=== PATIENT | female | born 1950 | race Caucasian/White ===

== ENCOUNTER 2023-01-05 17:56 | Inpatient (IN) ==
[2023-01-05] MEDS ORDERED: ONDANSETRON INJ 2 MG/ML 2 ML VIAL IV STA (18:03)
[2023-01-05] MEDS ORDERED: SODIUM CHLORIDE 0.9% 1000ML 1,000 ML IV STA (18:03)
--- NOTE | 2023-01-05 18:03 | ED Triage Note ---
Date of Service January 05, 2023 History of Present Illness This patient was briefly evaluated while in triage. An abbreviated physical exam was performed. This patient is a 72-year-old Female who presents to the ED for evaluation of abdominal cramping. Pt. states cramping is entire way across abdomen. Symptoms are constant but occasionally get sharper. Pt. has had some nausea, but no vomiting. Physical Exam VITALS: Vitals are noted on the nurse's note and reviewed by myself. GENERAL: This is a 72 year old female, in no acute distress, nondiaphoretic, well-developed well-nourished. SKIN: No obvious rashes, edema, erythema HEAD: Normocephalic atraumatic. EYES: Conjunctivae without injection, sclerae without icterus. NECK: No JVD. LUNGS: No retractions or accessory muscle use. MUSCULOSKELETAL: Normal gait. NEURO: Patient was alert and oriented to person place and time. No focal neurological deficits. Initial orders for labs and / or imaging were placed and patient was placed in the waiting area until a bed is available. Please see further documentation for the full ED course.
[2023-01-05 19:04] LABS: Basophils # (auto) 0.05 K/uL (0-0.2); Basophils % (auto) 0.5 %; Eosinophils # (auto) 0.08 K/uL (0-0.50); Eosinophils % (auto) 0.8 %; Hematocrit (blood only) 41.4 % (37.0-47.0); Hemoglobin 13.7 g/dl (12.0-16.0); Immature Granulocytes # (auto) 0.03 K/uL (0.01-0.20); Immature Granulocytes % (auto) 0.3 %; Lymphocytes # (auto) 0.99 K/uL (1.2-3.4); Lymphocytes % (auto) 9.9 %; Mean Corpuscular Hemoglobin 31.2 pg (25.0-34.0); Mean Corpuscular Hgb Conc 33.1 g/dL (32.0-36.0); Mean Corpuscular Volume 94.3 fL (80.0-100.0); Mean Platelet Volume 9.4 fL (9.4-12.4); Neutrophils % (auto) 82.5 %; Platelet Count 176 K/uL (130-400); RDW Coefficient of Variation 12.9 % (11.5-14.5); RDW Standard Deviation 44.9 fL (36.4-46.3); Red Blood Count 4.39 M/uL (4.20-5.40); White Blood Count 9.95 K/ul (4.8-10.8)
[2023-01-05 19:10] LABS: Appearance Urine Cloudy (Clear); Bacteria Urine Automated Negative (Negative); Blood Urine Negative (Negative); Color Urine Dark Yellow; Epithelial Cell Urine Auto >30 /lpf (0-5); Glucose Urine UA Negative (Negative); Ketones Urine 1+ (Negative); Leukocyte Esterase Urine Trace (Negative); Nitrite Urine Negative (Negative); Protein Urine 1+ (Negative); Specific Gravity Urine 1.036 (1.000-1.030); Urobilinogen Urine Negative (Negative); pH Urine 5.5 (4.5-7.5)
[2023-01-05 19:12] LABS: Bilirubin Urine 1+ (Negative)
[2023-01-05 19:20] LABS: RBC Urine Automated 0-4 /hpf (0-4)
[2023-01-05 19:21] LABS: Albumin Globulin Ratio 1.4 (0.9-2); Albumin Level 4.7 gm/dl (3.4-5.0); BUN Creatinine Ratio 22.5 (10-20); Bilirubin,Total 0.6 mg/dl (0.2-1.0); Creatinine Clr Calc Pharmacy 35.1 ml/min; Est GFR (African American) 51.6 ml/min; Est GFR (Non-African American) 44.5 ml/min; Globulin 3.3 gm/dl (2.5-4.0); Potassium 4.3 mmol/L (3.5-5.1)
[2023-01-05] MEDS ORDERED: OPTIRAY 320 100ml IV ONE (20:05)
[2023-01-05] MEDS ORDERED: MoRPHine SULFATE 4 MG/ML 1 ML CARP\\VIAL IV STA (20:29)
--- NOTE | 2023-01-05 20:50 | CT Scan Report ---
Exam(s): CT ABDOMEN + PELVIS With Contrast IV Amt: 93 ml optiray 320 EXAM: CT Abdomen and Pelvis With Intravenous Contrast CLINICAL HISTORY: Reason for exam: Generalized abdominal pain. TECHNIQUE: Axial computed tomography images of the abdomen and pelvis with intravenous contrast. CTDI is 10.78 mGy and DLP is 501.16 mGy-cm. Automated exposure control was utilized for the study. A dose lowering technique was utilized adhering to the principles of ALARA. CONTRAST: Patient received 93 ml optiray 320 of IV contrast COMPARISON: No relevant prior studies available. FINDINGS: Lung bases: Unremarkable. No mass. No consolidation. ABDOMEN: Liver: Unremarkable. No mass. Gallbladder and bile ducts: Unremarkable. No calcified stones. No ductal dilation. Pancreas: Unremarkable. No mass. No ductal dilation. Spleen: Unremarkable. No splenomegaly. Adrenals: Unremarkable. No mass. Kidneys and ureters: Unremarkable. No solid mass. No hydronephrosis. Stomach and bowel: high-grade small bowel obstruction. Transition point is likely within the mid line of the pelvis. Diverticulosis without evidence of diverticulitis. PELVIS: Appendix: No findings to suggest acute appendicitis. Bladder: Unremarkable. No mass. Reproductive: Unremarkable as visualized. ABDOMEN and PELVIS: Intraperitoneal space: See above. Bones/joints: No acute fracture. No dislocation. Soft tissues: Unremarkable. Vasculature: Unremarkable. No abdominal aortic aneurysm. Lymph nodes: Unremarkable. No enlarged lymph nodes. IMPRESSION: High-grade small bowel obstruction Electronically signed by: Herman Esquivel MD 01/05/23 20:49 PM
[2023-01-06] MEDS ORDERED: CARBIDOPA/LEVODOPA 25/100MG TAB PO STA (00:16)
--- NOTE | 2023-01-06 00:46 | Emergency Department Note ---
History of Present Illness General Chief Complaint: Abdominal Pain Stated Complaint: ABD PAIN,COLD SWEATS Time Seen by Provider: 01/05/23 20:10 History of Present Illness Provider Complaint: abdominal pain Onset (ago): 1 day(s) Pain Consistency: constant Location: diffuse Severity: moderate Maximum Pain Intensity: 6 Current Pain Intensity: 6 Quality: + stabbing, + aching and + sharp Relieved By: + nothing Exacerbated By: + nothing Context: no foreign travel, no possible food poisoning, no sick contacts, no recent antibiotic use, no recent surgery/procedure, no recent injury or no history of similar episodes Associated Symptoms: + nausea; no vomiting, no diarrhea, no fever, no chills, no constipation, no dysuria, no hematemesis, no hematochezia, no melena, no hematuria, no syncope, no headache, no back pain, no chest pain and no numbness Home Medications Medication Instructions Recorded Confirmed Type carbidopa 25 mg-levodopa 100 mg 1.5 tab PO TID 01/05/23 01/05/23 History tablet lisinopril 5 mg tablet 5 mg PO DAILY 01/05/23 01/05/23 History memantine 5 mg tablet 5 mg PO BID 01/05/23 01/05/23 History multivitamin 1 tab PO DAILY 01/05/23 01/05/23 History Allergies Allergy/AdvReac Type Severity Reaction Status Date / Time No Known Allergies Allergy Unverified 01/05/23 20:17 Past Med/Surg History Medical History (Updated 01/06/23 @ 00:46 by Anurag Antunez MD) HTN (hypertension) Parkinson disease SBO (small bowel obstruction) Surgical History H/O hernia repair H/O tubal ligation Social History Smoking Status: Unknown if ever smoked Preferred Language: Chinese Feels Safe at Home: Yes Physical Exam Vital Signs: Vital Signs - 24 hr 01/05/23 18:00 01/05/23 19:56 01/05/23 20:38 Temperature 36.5 C Temperature Source Temporal Artery Sc an Pulse Rate 85 Pulse Rate [Right Finger] 61 73 Respiratory Rate 16 19 19 Blood Pressure 134/74 Blood Pressure [Ri ght Arm] 164/83 H 140/73 Blood Pressure Carol n 94 Blood Pressure Carol n [Right Arm] 110 95 Pulse Oximetry 97 95 97 Oxygen Delivery Me thod Room Air Sepsis Recent Feve r Within 48 Hours No Sepsis New/Unexpla ined Change in Men fran Status N/A Sepsis Action Take n by Nursing No Action Required 01/05/23 19:47 01/05/23 21:44 01/05/23 23:10 Temperature Temperature Source Pulse Rate 63 Pulse Rate [Right Finger] 65 82 Respiratory Rate 16 16 Blood Pressure Blood Pressure [Ri ght Arm] 148/80 H Blood Pressure Carol n Blood Pressure Carol n [Right Arm] 102 Pulse Oximetry 99 97 Oxygen Delivery Me thod Room Air Sepsis Recent Feve r Within 48 Hours Sepsis New/Unexpla ined Change in Men fran Status Sepsis Action Take n by Nursing 01/06/23 00:18 Temperature Temperature Source Pulse Rate Pulse Rate [Right Finger] 61 Respiratory Rate 16 Blood Pressure Blood Pressure [Ri ght Arm] 141/72 H Blood Pressure Carol n Blood Pressure Carol n [Right Arm] 95 Pulse Oximetry 97 Oxygen Delivery Me thod Sepsis Recent Feve r Within 48 Hours Sepsis New/Unexpla ined Change in Men fran Status Sepsis Action Take n by Nursing Physical Exam: Physical Exam GENERAL: She is oriented to person, place, and time. She appears well-developed and well-nourished. She does not appear distressed. HENT: Exam performed. -Head: Normocephalic and atraumatic. -Right Ear: External ear normal. No mastoid erythema -Left Ear: External ear normal. No mastoid erythema -Mouth/Throat: The oropharynx is clear and moist. No trismus in the jaw. No dental abscesses or uvula swelling. No oropharyngeal exudate or tonsillar abscesses. EYES: Conjunctivae and EOM are normal.Right eye exhibits no discharge. Left eye exhibits no discharge. No scleral icterus. NECK: Normal range of motion. Neck supple. No JVD present. No tracheal deviation and normal range of motion present. CV: Normal rate, regular rhythm, normal heart sounds and intact distal pulses. There is no peripheral edema. Palpable radial pulses bue. PULM/CHEST: Effort normal and breath sounds normal. No respiratory distress. No stridor. She has no wheezes. She has no rales. -Chest Wall: She exhibits no tenderness. ABD: The abdomen is soft. Bowel sounds are normal. She has no distension. No mass is present. There is diffuse tenderness to palpation of the abdomen. There is no rebound, no guarding. MUSC/SKEL: Normal range of motion. There is no peripheral edema, tenderness or deformity. NEURO: Motor and sensation grossly intact. SKIN: Skin is warm and dry. She is not diaphoretic. PSYCH: She has a normal mood and affect. Behavior is normal. Judgment and thought content normal. Course Course 2009: The patient was evaluated in room C2. A complete history and physical exam was performed Cardiac monitoring: An order was placed for continuous cardiac monitoring. The monitor shows a rate of 60 with sinus rhythm interpreted by dc 2200: Vital signs stable. Labs within normal limits. Imaging shows bowel obstruction. Patient not having any vomiting. Discussed case with on-call general surgery Dr. Teixeira who states admit to medicine and place him on routine consult. [facility] Dr[facility] Lynne Administered Medications Discontinued Medications Sodium Chloride (Nss 1000ml) 1,000 mls @ 999 mls/hr IV .Q1H1M STA Stop: 01/05/23 19:03 Last Infusion: 01/05/23 20:59 Dose: 0 mls/hr Documented By: Admin: 01/05/23 19:56 Dose: 999 mls/hr Documented By: DAVON Ioversol (Optiray 320 100ml) 93 ml IV ONCE ONE Stop: 01/05/23 20:06 Last Admin: 01/05/23 20:06 Dose: 93 ml Documented By: ALBIN Morphine Sulfate (Morphine Sulfate 4 Mg/Ml 1 Ml Carp\Vial) 4 mg IV NOW STA Stop: 01/05/23 20:30 Last Admin: 01/05/23 20:34 Dose: 4 mg Documented By: DAVON Ondansetron HCl (Ondansetron Inj 2 Mg/Ml 2 Ml Vial) 4 mg IV NOW STA Stop: 01/05/23 18:04 Last Admin: 01/05/23 19:56 Dose: 4 mg Documented By: DAVON Medical Decision Making Laboratory Data Attestation: I reviewed the patient's lab results. 01/05/23 18:48 01/05/23 18:48 Lab Results 01/05/23 01/05/23 01/05/23 Range/Units 18:48 18:48 18:57 WBC 9.95 (4.8-10.8) K/ul RBC 4.39 (4.20-5.40) M/uL Hgb 13.7 (12.0-16.0) g/dl Hct 41.4 (37.0-47.0) % MCV 94.3 (80.0-100.0) fL MCH 31.2 (25.0-34.0) pg MCHC 33.1 (32.0-36.0) g/dL RDW Std Deviation 44.9 (36.4-46.3) fL RDW Coeff of Brandee 12.9 (11.5-14.5) % Plt Count 176 (130-400) K/uL MPV 9.4 (9.4-12.4) fL Immature Gran % (Auto) 0.3 % Neut % (Auto) 82.5 % Lymph % (Auto) 9.9 % [place] % (Auto) 6.0 % Eos % (Auto) 0.8 % Baso % (Auto) 0.5 % Neut # (Auto) 8.20 H (1.40-6.50) K/uL Lymph # (Auto) 0.99 L (1.2-3.4) K/uL Alpine # (Auto) 0.60 H (0.11-0.59) K/uL Eos # (Auto) 0.08 (0-0.50) K/uL Baso # (Auto) 0.05 (0-0.2) K/uL Immature Gran # (Auto) 0.03 (0.01-0.20) K/uL Sodium 137 (136-145) mmol/L Potassium 4.3 (3.5-5.1) mmol/L Chloride 104 (98-107) mmol/L Carbon Dioxide 26 (21-32) mmol/L Anion Gap 7 (3-11) BUN 27 H (6-23) mg/dl Creatinine 1.20 (0.6-1.2) mg/dl Est Cr Clr Drug Dosing 35.1 ml/min Est GFR ( Amer) 51.6 ml/min Est GFR (Non-Af Amer) 44.5 ml/min BUN/Creatinine Ratio 22.5 H (10-20) Glucose 124 H (70-99(Fasting)) mg/dl Calcium 10.0 (8.6-10.3) mg/dl Total Bilirubin 0.6 (0.2-1.0) mg/dl AST 19 (13-39) U/L ALT 3 L (7-52) U/L Alkaline Phosphatase 82 (34-104) U/L Total Protein 8.0 (6.0-8.3) gm/dl Albumin 4.7 (3.4-5.0) gm/dl Globulin 3.3 (2.5-4.0) gm/dl Albumin/Globulin Ratio 1.4 (0.9-2) Lipase 17 (11-82) U/L Urine Color Dark Yellow Urine Appearance Cloudy A (Clear) Urine pH 5.5 (4.5-7.5) Ur Specific [place] 1.036 H (1.000-1.030) Urine Protein 1+ H (Negative) Urine Glucose (UA) Negative (Negative) Urine Ketones 1+ H (Negative) Urine Blood Negative (Negative) Urine Nitrite Negative (Negative) Urine Bilirubin 1+ H (Negative) Urine Urobilinogen Negative (Negative) Ur Leukocyte Esterase Trace H (Negative) Urine WBC (Auto) 5-10 H (0-5) /hpf Urine RBC (Auto) 0-4 (0-4) /hpf U Hyaline Cast (Auto) 1-5 (0-5) /lpf U Epithel Cells (Auto) >30 H (0-5) /lpf Urine Bacteria (Auto) Negative (Negative) Ur Renal Epithelial Cell Not Reportable Urine Yeast Not Reportable Imaging Data Radiologist's Impression: Abdomen/Pelvis CT 01/05/23 18:03 Exam(s): CT ABDOMEN + PELVIS With Contrast IV Amt: 93 ml optiray 320 EXAM: CT Abdomen and Pelvis With Intravenous Contrast CLINICAL HISTORY: Reason for exam: Generalized abdominal pain. TECHNIQUE: Axial computed tomography images of the abdomen and pelvis with intravenous contrast. CTDI is 10.78 mGy and DLP is 501.16 mGy-cm. Automated exposure control was utilized for the study. A dose lowering technique was utilized adhering to the principles of ALARA. CONTRAST: Patient received 93 ml optiray 320 of IV contrast COMPARISON: No relevant prior studies available. FINDINGS: Lung bases: Unremarkable. No mass. No consolidation. ABDOMEN: Liver: Unremarkable. No mass. Gallbladder and bile ducts: Unremarkable. No calcified stones. No ductal dilation. Pancreas: Unremarkable. No mass. No ductal dilation. Spleen: Unremarkable. No splenomegaly. Adrenals: Unremarkable. No mass. Kidneys and ureters: Unremarkable. No solid mass. No hydronephrosis. Stomach and bowel: high-grade small bowel obstruction. Transition point is likely within the mid line of the pelvis. Diverticulosis without evidence of diverticulitis. PELVIS: Appendix: No findings to suggest acute appendicitis. Bladder: Unremarkable. No mass. Reproductive: Unremarkable as visualized. ABDOMEN and PELVIS: Intraperitoneal space: See above. Bones/joints: No acute fracture. No dislocation. Soft tissues: Unremarkable. Vasculature: Unremarkable. No abdominal aortic aneurysm. Lymph nodes: Unremarkable. No enlarged lymph nodes. IMPRESSION: High-grade small bowel obstruction Electronically signed by: Herman Esquivel MD 01/05/23 20:49 PM [facility] Narrative 2009: The patient was evaluated in room C2. A complete history and physical exam was performed Cardiac monitoring: An order was placed for continuous cardiac monitoring. The monitor shows a rate of 60 with sinus rhythm interpreted by dc 2200: Vital signs stable. Labs within normal limits. Imaging shows bowel obstruction. Patient not having any vomiting. Discussed case with on-call general surgery Dr. Teixeira who states admit to medicine and place him on routine consult. Patient be admitted to [facility] team Dr. Lynne Impression & Plan Small bowel obstruction Discharge Plan Visit Data Chief Complaint: Abdominal Pain Stated Complaint: ABD PAIN,COLD SWEATS ED Provider: Anurag Antunez Discharge Problem: Small bowel obstruction Patient Disposition: Admitted As Inpatient Forms Stand Alone Forms: [facility] Prescriptions Prescriptions: No Action multivitamin Tablet 1 tab PO DAILY lisinopril 5 mg tablet 5 mg PO DAILY carbidopa-levodopa 25-100 mg tablet 1.5 tab PO TID memantine 5 mg tablet 5 mg PO BID Referrals Referrals: Aron Chavez MD [Primary Care Provider] -
--- NOTE | 2023-01-06 01:46 | History & Physical Report ---
Date of Service January 06, 2023 Assessment & Plan (1) Small bowel obstruction: Plan: 72-year-old female past medical significant for hypertension, Parkinson disease history of bowel obstruction in the past presents with abdominal pain and found to have a high-grade small bowel obstruction. Small bowel obstruction High-grade History of small bowel obstruction in the past as per patient and daughter We will keep her n.p.o. IV fluids, IV antiemetics as needed and IV pain medications as needed Monitor on the medical floor Surgical consult Symptoms gets worse we will place an NG tube Hypertension Continue home lisinopril Parkinson's disease Continue home carbidopa levodopa DVT prophylaxis Lovenox Disposition medical floor Full code (2) HTN (hypertension): (3) Parkinson disease: Admission and Anticipated Discharge Date Admission Date: January 06, 2023 History of Present Illness Chief Complaint: Abdominal pain Primary Care Provider: Aron Chavez MD 72-year-old female past medical significant for hypertension, Parkinson disease history of bowel obstruction in the past presents with abdominal pain starting in the morning. Also with some nausea but no vomiting. Had a bowel movement 1 day earlier. She is passing some gas. Currently with the pain medication pain is improved. Denies any chest pain or shortness of breath. No cough. No fevers. No headache. No earache or runny nose or sore throat. Currently rest ing comfortably and hemodynamically stable. Past medical history as mentioned above Past surgical history esophageal hernia surgery, tubal ligation Social history . Passive smoking. No alcohol use. Family history mother had breast cancer, father had kidney cancer and bone cancer and [place] Allergies Allergy/AdvReac Type Severity Reaction Status Date / Time No Known Allergies Allergy Unverified 01/05/23 20:17 Home Medications Medication Instructions Recorded Confirmed Type carbidopa 25 mg-levodopa 100 mg 1.5 tab PO TID 01/05/23 01/05/23 History tablet lisinopril 5 mg tablet 5 mg PO DAILY 01/05/23 01/05/23 History memantine 5 mg tablet 5 mg PO BID 01/05/23 01/05/23 History multivitamin 1 tab PO DAILY 01/05/23 01/05/23 History Past Med/Surg History Medical History HTN (hypertension) Parkinson disease SBO (small bowel obstruction) Surgical History H/O hernia repair H/O tubal ligation Social History Smoking Status: Never smoker Hx Alcohol Use: No Hx Substance Use: No Preferred Language: Latvian Communication Ability: Effective Lunchroom Monitor Required: No Beliefs That Will Affect Care: None Current Living Situation: Spouse Other Information That Helps Us Care for You: No Feels Safe at Home: Yes Safety Concerns: Feels Safe At This Time Assistive Devices: None Review of Systems Review of Systems: All systems reviewed & are unremarkable except as noted in Subjective Physical Exam Physical Exam: General- Not in distress Head- atraumatic Eyes- PERRLA. ENT- oropharynx clear Neck- supple, no JVD, Lungs- clear to auscultation and percussion Heart- regular rate rhythm; no murmur, no gallop Abdomen- sluggish bowel sounds, soft, mild diffuse tender, no distension Extremities- no pretibial edema, no erythema Neuro- alert, oriented x 3; PERRL, EOMI; no facial palsy; no dysarthria;moves extremities. Skin- warm & dry Results & Data Results & Data Vital Signs (Past 12 Hours) Vital Signs Temp Pulse Pulse Resp BP BP Pulse Ox 01/06/23 01:18 61 16 165/80 H 98 01/06/23 00:18 61 16 141/72 H 97 01/05/23 23:10 82 16 148/80 H 97 01/05/23 21:44 65 16 99 01/05/23 19:47 63 01/05/23 20:38 73 19 140/73 97 01/05/23 19:56 61 19 164/83 H 95 01/05/23 18:00 36.5 C 85 16 134/74 97 O2 Del Method 01/06/23 01:18 Room Air 01/06/23 00:18 01/05/23 23:10 Room Air 01/05/23 21:44 01/05/23 19:47 01/05/23 20:38 01/05/23 19:56 01/05/23 18:00 Room Air Diagnostic Findings Laboratory Results WBC 9.95 K/ul (4.8-10.8) 01/05/23 18:48 RBC 4.39 M/uL (4.20-5.40) 01/05/23 18:48 Hgb 13.7 g/dl (12.0-16.0) 01/05/23 18:48 Hct 41.4 % (37.0-47.0) 01/05/23 18:48 MCV 94.3 fL (80.0-100.0) 01/05/23 18:48 MCH 31.2 pg (25.0-34.0) 01/05/23 18:48 MCHC 33.1 g/dL (32.0-36.0) 01/05/23 18:48 RDW Std Deviation 44.9 fL (36.4-46.3) 01/05/23 18:48 RDW Coeff of Brandee 12.9 % (11.5-14.5) 01/05/23 18:48 Plt Count 176 K/uL (130-400) 01/05/23 18:48 MPV 9.4 fL (9.4-12.4) 01/05/23 18:48 Immature Gran % (Auto) 0.3 % 01/05/23 18:48 Neut % (Auto) 82.5 % 01/05/23 18:48 Lymph % (Auto) 9.9 % 01/05/23 18:48 Sunflower % (Auto) 6.0 % 01/05/23 18:48 Eos % (Auto) 0.8 % 01/05/23 18:48 Baso % (Auto) 0.5 % 01/05/23 18:48 Neut # (Auto) 8.20 K/uL (1.40-6.50) H 01/05/23 18:48 Lymph # (Auto) 0.99 K/uL (1.2-3.4) L 01/05/23 18:48 Sunflower # (Auto) 0.60 K/uL (0.11-0.59) H 01/05/23 18:48 Eos # (Auto) 0.08 K/uL (0-0.50) 01/05/23 18:48 Baso # (Auto) 0.05 K/uL (0-0.2) 01/05/23 18:48 Immature Gran # (Auto) 0.03 K/uL (0.01-0.20) 01/05/23 18:48 Sodium 137 mmol/L (136-145) 01/05/23 18:48 Potassium 4.3 mmol/L (3.5-5.1) 01/05/23 18:48 Chloride 104 mmol/L (98-107) 01/05/23 18:48 Carbon Dioxide 26 mmol/L (21-32) 01/05/23 18:48 Anion Gap 7 (3-11) 01/05/23 18:48 BUN 27 mg/dl (6-23) H 01/05/23 18:48 Creatinine 1.20 mg/dl (0.6-1.2) 01/05/23 18:48 Est Cr Clr Drug Dosing 35.1 ml/min 01/05/23 18:48 Est GFR ( Amer) 51.6 ml/min 01/05/23 18:48 Est GFR (Non-Af Amer) 44.5 ml/min 01/05/23 18:48 BUN/Creatinine Ratio 22.5 (10-20) H 01/05/23 18:48 Glucose 124 mg/dl (70-99(Fasting)) H 01/05/23 18:48 Calcium 10.0 mg/dl (8.6-10.3) 01/05/23 18:48 Total Bilirubin 0.6 mg/dl (0.2-1.0) 01/05/23 18:48 AST 19 U/L (13-39) 01/05/23 18:48 ALT 3 U/L (7-52) L 01/05/23 18:48 Alkaline Phosphatase 82 U/L (34-104) 01/05/23 18:48 Total Protein 8.0 gm/dl (6.0-8.3) 01/05/23 18:48 Albumin 4.7 gm/dl (3.4-5.0) 01/05/23 18:48 Globulin 3.3 gm/dl (2.5-4.0) 01/05/23 18:48 Albumin/Globulin Ratio 1.4 (0.9-2) 01/05/23 18:48 Lipase 17 U/L (11-82) 01/05/23 18:48 Urine Color Dark Yellow 01/05/23 18:57 Urine Appearance Cloudy (Clear) A 01/05/23 18:57 Urine pH 5.5 (4.5-7.5) 01/05/23 18:57 Ur Specific [place] 1.036 (1.000-1.030) H 01/05/23 18:57 Urine Protein 1+ (Negative) H 01/05/23 18:57 Urine Glucose (UA) Negative (Negative) 01/05/23 18:57 Urine Ketones 1+ (Negative) H 01/05/23 18:57 Urine Blood Negative (Negative) 01/05/23 18:57 Urine Nitrite Negative (Negative) 01/05/23 18:57 Urine Bilirubin 1+ (Negative) H 01/05/23 18:57 Urine Urobilinogen Negative (Negative) 01/05/23 18:57 Ur Leukocyte Esterase Trace (Negative) H 01/05/23 18:57 Urine WBC (Auto) 5-10 /hpf (0-5) H 01/05/23 18:57 Urine RBC (Auto) 0-4 /hpf (0-4) 01/05/23 18:57 U Hyaline Cast (Auto) 1-5 /lpf (0-5) 01/05/23 18:57 U Epithel Cells (Auto) >30 /lpf (0-5) H 01/05/23 18:57 Urine Bacteria (Auto) Negative (Negative) 01/05/23 18:57 Ur Renal Epithelial Cell Not Reportable 01/05/23 18:57 Urine Yeast Not Reportable 01/05/23 18:57 Impressions Abdomen/Pelvis CT 01/05/23 18:03 Exam(s): CT ABDOMEN + PELVIS With Contrast IV Amt: 93 ml optiray 320 EXAM: CT Abdomen and Pelvis With Intravenous Contrast CLINICAL HISTORY: Reason for exam: Generalized abdominal pain. TECHNIQUE: Axial computed tomography images of the abdomen and pelvis with intravenous contrast. CTDI is 10.78 mGy and DLP is 501.16 mGy-cm. Automated exposure control was utilized for the study. A dose lowering technique was utilized adhering to the principles of ALARA. CONTRAST: Patient received 93 ml optiray 320 of IV contrast COMPARISON: No relevant prior studies available. FINDINGS: Lung bases: Unremarkable. No mass. No consolidation. ABDOMEN: Liver: Unremarkable. No mass. Gallbladder and bile ducts: Unremarkable. No calcified stones. No ductal dilation. Pancreas: Unremarkable. No mass. No ductal dilation. Spleen: Unremarkable. No splenomegaly. Adrenals: Unremarkable. No mass. Kidneys and ureters: Unremarkable. No solid mass. No hydronephrosis. Stomach and bowel: high-grade small bowel obstruction. Transition point is likely within the mid line of the pelvis. Diverticulosis without evidence of diverticulitis. PELVIS: Appendix: No findings to suggest acute appendicitis. Bladder: Unremarkable. No mass. Reproductive: Unremarkable as visualized. ABDOMEN and PELVIS: Intraperitoneal space: See above. Bones/joints: No acute fracture. No dislocation. Soft tissues: Unremarkable. Vasculature: Unremarkable. No abdominal aortic aneurysm. Lymph nodes: Unremarkable. No enlarged lymph nodes. IMPRESSION: High-grade small bowel obstruction Electronically signed by: Herman Esquivel MD 01/05/23 20:49 PM Code Status & VTE Plan VTE Prophylaxis Plan VTE Prophylaxis will be ordered: Yes
[2023-01-06] MEDS: D5W AND NSS 1,000 ML IV SCH ×3 (01:56→17:06)
[2023-01-06 08:07] LABS: Basophils # (auto) 0.03 K/uL (0-0.2); Basophils % (auto) 0.3 %; Eosinophils # (auto) 0.02 K/uL (0-0.50); Eosinophils % (auto) 0.2 %; Hematocrit (blood only) 39.6 % (37.0-47.0); Hemoglobin 13.1 g/dl (12.0-16.0); Immature Granulocytes # (auto) 0.04 K/uL (0.01-0.20); Immature Granulocytes % (auto) 0.4 %; Lymphocytes % (auto) 5.3 %; Mean Corpuscular Hemoglobin 31.3 pg (25.0-34.0); Mean Corpuscular Hgb Conc 33.1 g/dL (32.0-36.0); Mean Corpuscular Volume 94.5 fL (80.0-100.0); Mean Platelet Volume 9.6 fL (9.4-12.4); Monocytes # (auto) 0.68 K/uL (0.11-0.59); Neutrophils % (auto) 87.8 %; Platelet Count 155 K/uL (130-400); RDW Coefficient of Variation 13.1 % (11.5-14.5); RDW Standard Deviation 44.7 fL (36.4-46.3); Red Blood Count 4.19 M/uL (4.20-5.40); White Blood Count 11.37 K/ul (4.8-10.8)
[2023-01-06] MEDS: ENOXAPARIN INJ 40 MG/0.4 ML SYR SQ SCH (08:11)
[2023-01-06] MEDS: lisinopril 5 MG TAB PO SCH (08:12)
[2023-01-06] MEDS: MULTIVITAMIN TAB PO SCH (08:12)
[2023-01-06] MEDS: MEMANTINE HCL 5 MG TAB PO SCH ×2 (08:12→20:09)
[2023-01-06] MEDS: CARBIDOPA/LEVODOPA 25/100MG TAB PO SCH ×3 (08:13→20:09)
[2023-01-06 08:15] LABS: BUN Creatinine Ratio 20.6 (10-20); Calcium 8.9 mg/dl (8.6-10.3); Creatinine Clr Calc Pharmacy 43.6 ml/min; Est GFR (African American) 66.7 ml/min; Est GFR (Non-African American) 57.5 ml/min; Magnesium 1.9 mg/dl (1.7-2.4); Potassium 4.1 mmol/L (3.5-5.1)
[2023-01-06] MEDS: ONDANSETRON INJ 2 MG/ML 2 ML VIAL IV PRN ×3 (08:16→21:51)
[2023-01-06] MEDS: HYDROmorphone INJ 0.5 MG/0.5 ML SYR IV PRN (08:17)
--- NOTE | 2023-01-06 09:12 | Surgery Consultation ---
Date of Consultation January 06, 2023 Assessment & Plan (1) Small bowel obstruction: 72 year-old female with history of esophageal hernia repair and tubal ligation with prior SBO treated conservatively 3-4 years ago presented to emergency department with increasing abdominal pain and nausea that started yesterday morning. Passing flatus. Mild leukocytosis this am. Afebrile and hemodynamically stable. CT scan with high grade SBO with transition in the midline of pelvis. Abdomen is soft, nondistended, mildly tender in mid lower abdomen. Plan: Continue conservative management : NPO for bowel rest, IV fluids, Pain management and antiemetics as needed encouraged OOB to chair and ambulate Continue medical management will follow along Discussed with Dr. Quinn who has seen patient, agrees with above History of Present Illness Reason for Consultation: High grade SBO Requesting Physician: Dr. Antunez Attending Physician: Edwin Carpenter MD History of Present Illness Lula is a 72 year-old female with history of Parkinson disease, hypertension, and prior SBO presented to emergency department with increasing mid abdominal pain with associated nausea that started yesterday morning. States she has nausea but no vomiting. Passing some gas. Last bowel movement was two days ago. States she has a SBO about 3-4 years ago which was treated conservatively. Has history of tubal ligation and esophageal hernia repair done in [place]. Currently she states she is still having some pain and nausea but not worsening. Is passing a little more gas than last evening but no bowel movement. ER work-up included labs which showed no leukocytosis. CT scan of abdomen and pelvis with IV contrast showing high grade SBO with transition point in the low pelvis. Allergies Allergy/AdvReac Type Severity Reaction Status Date / Time No Known Allergies Allergy Unverified 01/05/23 20:17 Home Medications Medication Instructions Recorded Confirmed Type carbidopa 25 mg-levodopa 100 mg 1.5 tab PO TID 01/05/23 01/05/23 History tablet lisinopril 5 mg tablet 5 mg PO DAILY 01/05/23 01/05/23 History memantine 5 mg tablet 5 mg PO BID 01/05/23 01/05/23 History multivitamin 1 tab PO DAILY 01/05/23 01/05/23 History Patient History Medical History HTN (hypertension) Parkinson disease SBO (small bowel obstruction) Surgical History H/O hernia repair H/O tubal ligation Social History Smoking Status: Never smoker Hx Alcohol Use: No Hx Substance Use: No Preferred Language: [place] Communication Ability: Effective 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: No Beliefs That Will Affect Care: None Current Living Situation: Spouse Other Information That Helps Us Care for You: No Feels Safe at Home: Yes Safety Concerns: Feels Safe At This Time Assistive Devices: Walker Review of Systems Review of Systems: All systems reviewed & are unremarkable except as noted in HPI & below Physical Exam Constitutional: WD/WN, vitals as above cooperative and comfortable; no acute distress, not ill appearing and not diaphoretic Respiratory: normal respiratory effort; no respiratory distress Gastrointestinal (Abdomen): Inspection/Auscultation: abdomen normal to inspection, + abdominal surgical scar and + hypoactive bowel sounds; abdomen not distended and + abnormal bowel sounds Percussion/Palpation: + abdomen tender (mild tenderness in the mid lower abdomen) and abdomen soft; no guarding, abdomen not rigid and abdomen not firm Skin: no rashes, warm and dry Psychiatric: Orientation: alert and oriented x 3 Results & Data Vital Signs (Past 12 Hours) Vital Signs Temp Pulse Pulse Resp BP BP Pulse Ox 01/06/23 07:14 36.6 C 65 16 123/76 96 01/06/23 01:25 36.9 C 66 20 165/85 H 98 01/06/23 01:18 61 16 165/80 H 98 01/06/23 00:18 61 16 141/72 H 97 01/05/23 23:10 82 16 148/80 H 97 01/05/23 21:44 65 16 99 O2 Del Method 01/06/23 07:14 Room Air 01/06/23 01:25 Room Air 01/06/23 01:18 Room Air 01/06/23 00:18 01/05/23 23:10 Room Air 01/05/23 21:44 Laboratory Results 01/06/23 01/06/23 01/05/23 Range/Units 07:25 07:25 18:57 WBC 11.37 H (4.8-10.8) K/ul RBC 4.19 L (4.20-5.40) M/uL Hgb 13.1 (12.0-16.0) g/dl Hct 39.6 (37.0-47.0) % MCV 94.5 (80.0-100.0) fL MCH 31.3 (25.0-34.0) pg MCHC 33.1 (32.0-36.0) g/dL RDW Std Deviation 44.7 (36.4-46.3) fL RDW Coeff of Brandee 13.1 (11.5-14.5) % Plt Count 155 (130-400) K/uL MPV 9.6 (9.4-12.4) fL Immature Gran % (Auto) 0.4 % Neut % (Auto) 87.8 % Lymph % (Auto) 5.3 % [place] % (Auto) 6.0 % Eos % (Auto) 0.2 % Baso % (Auto) 0.3 % Neut # (Auto) 10.00 H (1.40-6.50) K/uL Lymph # (Auto) 0.60 L (1.2-3.4) K/uL [place]ick # (Auto) 0.68 H (0.11-0.59) K/uL Eos # (Auto) 0.02 (0-0.50) K/uL Baso # (Auto) 0.03 (0-0.2) K/uL Immature Gran # (Auto) 0.04 (0.01-0.20) K/uL Sodium 136 (136-145) mmol/L Potassium 4.1 (3.5-5.1) mmol/L Chloride 107 (98-107) mmol/L Carbon Dioxide 24 (21-32) mmol/L Anion Gap 5 (3-11) BUN 20 (6-23) mg/dl Creatinine 0.97 (0.6-1.2) mg/dl Est Cr Clr Drug Dosing 43.6 ml/min Est GFR ( Amer) 66.7 ml/min Est GFR (Non-Af Amer) 57.5 ml/min BUN/Creatinine Ratio 20.6 H (10-20) Glucose 192 H (70-99(Fasting)) mg/dl Calcium 8.9 (8.6-10.3) mg/dl Magnesium 1.9 (1.7-2.4) mg/dl Total Bilirubin (0.2-1.0) mg/dl AST (13-39) U/L ALT (7-52) U/L Alkaline Phosphatase (34-104) U/L Total Protein (6.0-8.3) gm/dl Albumin (3.4-5.0) gm/dl Globulin (2.5-4.0) gm/dl Albumin/Globulin Ratio (0.9-2) Lipase (11-82) U/L Urine Color Dark Yellow Urine Appearance Cloudy A (Clear) Urine pH 5.5 (4.5-7.5) Ur Specific [place] 1.036 H (1.000-1.030) Urine Protein 1+ H (Negative) Urine Glucose (UA) Negative (Negative) Urine Ketones 1+ H (Negative) Urine Blood Negative (Negative) Urine Nitrite Negative (Negative) Urine Bilirubin 1+ H (Negative) Urine Urobilinogen Negative (Negative) Ur Leukocyte Esterase Trace H (Negative) Urine WBC (Auto) 5-10 H (0-5) /hpf Urine RBC (Auto) 0-4 (0-4) /hpf U Hyaline Cast (Auto) 1-5 (0-5) /lpf U Epithel Cells (Auto) >30 H (0-5) /lpf Urine Bacteria (Auto) Negative (Negative) Ur Renal Epithelial Cell Not Reportable Urine Yeast Not Reportable 01/05/23 01/05/23 Range/Units 18:48 18:48 WBC 9.95 (4.8-10.8) K/ul RBC 4.39 (4.20-5.40) M/uL Hgb 13.7 (12.0-16.0) g/dl Hct 41.4 (37.0-47.0) % MCV 94.3 (80.0-100.0) fL MCH 31.2 (25.0-34.0) pg MCHC 33.1 (32.0-36.0) g/dL RDW Std Deviation 44.9 (36.4-46.3) fL RDW Coeff of Brandee 12.9 (11.5-14.5) % Plt Count 176 (130-400) K/uL MPV 9.4 (9.4-12.4) fL Immature Gran % (Auto) 0.3 % Neut % (Auto) 82.5 % Lymph % (Auto) 9.9 % M[place]ick % (Auto) 6.0 % Eos % (Auto) 0.8 % Baso % (Auto) 0.5 % Neut # (Auto) 8.20 H (1.40-6.50) K/uL Lymph # (Auto) 0.99 L (1.2-3.4) K/uL [place]ick # (Auto) 0.60 H (0.11-0.59) K/uL Eos # (Auto) 0.08 (0-0.50) K/uL Baso # (Auto) 0.05 (0-0.2) K/uL Immature Gran # (Auto) 0.03 (0.01-0.20) K/uL Sodium 137 (136-145) mmol/L Potassium 4.3 (3.5-5.1) mmol/L Chloride 104 (98-107) mmol/L Carbon Dioxide 26 (21-32) mmol/L Anion Gap 7 (3-11) BUN 27 H (6-23) mg/dl Creatinine 1.20 (0.6-1.2) mg/dl Est Cr Clr Drug Dosing 35.1 ml/min Est GFR ( Amer) 51.6 ml/min Est GFR (Non-Af Amer) 44.5 ml/min BUN/Creatinine Ratio 22.5 H (10-20) Glucose 124 H (70-99(Fasting)) mg/dl Calcium 10.0 (8.6-10.3) mg/dl Magnesium (1.7-2.4) mg/dl Total Bilirubin 0.6 (0.2-1.0) mg/dl AST 19 (13-39) U/L ALT 3 L (7-52) U/L Alkaline Phosphatase 82 (34-104) U/L Total Protein 8.0 (6.0-8.3) gm/dl Albumin 4.7 (3.4-5.0) gm/dl Globulin 3.3 (2.5-4.0) gm/dl Albumin/Globulin Ratio 1.4 (0.9-2) Lipase 17 (11-82) U/L Urine Color Urine Appearance (Clear) Urine pH (4.5-7.5) Ur Specific [place] (1.000-1.030) Urine Protein (Negative) Urine Glucose (UA) (Negative) Urine Ketones (Negative) Urine Blood (Negative) Urine Nitrite (Negative) Urine Bilirubin (Negative) Urine Urobilinogen (Negative) Ur Leukocyte Esterase (Negative) Urine WBC (Auto) (0-5) /hpf Urine RBC (Auto) (0-4) /hpf U Hyaline Cast (Auto) (0-5) /lpf U Epithel Cells (Auto) (0-5) /lpf Urine Bacteria (Auto) (Negative) Ur Renal Epithelial Cell Urine Yeast Diagnostic Findings Exam(s): CT ABDOMEN + PELVIS With Contrast IV Amt: 93 ml optiray 320 EXAM: CT Abdomen and Pelvis With Intravenous Contrast CLINICAL HISTORY: Reason for exam: Generalized abdominal pain. TECHNIQUE: Axial computed tomography images of the abdomen and pelvis with intravenous contrast. CTDI is 10.78 mGy and DLP is 501.16 mGy-cm. Automated exposure control was utilized for the study. A dose lowering technique was utilized adhering to the principles of ALARA. CONTRAST: Patient received 93 ml optiray 320 of IV contrast COMPARISON: No relevant prior studies available. FINDINGS: Lung bases: Unremarkable. No mass. No consolidation. ABDOMEN: Liver: Unremarkable. No mass. Gallbladder and bile ducts: Unremarkable. No calcified stones. No ductal dilation. Pancreas: Unremarkable. No mass. No ductal dilation. Spleen: Unremarkable. No splenomegaly. Adrenals: Unremarkable. No mass. Kidneys and ureters: Unremarkable. No solid mass. No hydronephrosis. Stomach and bowel: high-grade small bowel obstruction. Transition point is likely within the mid line of the pelvis. Diverticulosis without evidence of diverticulitis. PELVIS: Appendix: No findings to suggest acute appendicitis. Bladder: Unremarkable. No mass. Reproductive: Unremarkable as visualized. ABDOMEN and PELVIS: Intraperitoneal space: See above. Bones/joints: No acute fracture. No dislocation. Soft tissues: Unremarkable. Vasculature: Unremarkable. No abdominal aortic aneurysm. Lymph nodes: Unremarkable. No enlarged lymph nodes. IMPRESSION: High-grade small bowel obstruction
[2023-01-06] MEDS: ACETAMINOPHEN 1,000 MG/100 ML VIAL IV SCH ×2 (14:08→21:51)
--- NOTE | 2023-01-06 15:05 | Hospitalist Progress Note ---
Date of Service January 06, 2023 Assessment & Plan (1) Small bowel obstruction: Plan: 72-year-old female past medical significant for hypertension, Parkinson disease history of bowel obstruction in the past presents with abdominal pain and found to have a high-grade small bowel obstruction. SMALL BOWEL OBSTRUCTION HIGH-GRADE Transition point at mid pelvis General surgery consulted Continue with conservative management approach at this time-bowel rest, IV fluids Monitor closely HYPERTENSION Continue home lisinopril PARKINSON'S DISEASE Continue home carbidopa levodopa DVT prophylaxis Lovenox Disposition Pending PT and OT will be consulted (2) HTN (hypertension): (3) Parkinson disease: Admission and Anticipated Discharge Date Admission Date: January 06, 2023 Subjective Follow-up for small bowel obstruction, etc. Seen resting in bed, comfortable, not in distress States she feels improved compared to yesterday Abdominal pain improving, had some nausea this morning but seems to be resolving Positive flatus, no bowel movements No fevers or chills, shortness of breath, chest pain, palpitations, dizziness No other new symptoms Review of Systems Review of Systems: all noted and negative except for above Physical Exam Physical Exam: General- oriented x 3, not in distress, speaks in sentences with no effort or accessory muscle use Head- atraumatic Eyes- PERRL, EOMI, anicteric ENT- oropharynx clear Neck- supple, no JVD, no adenopathy, no thyromegaly; carotids +2/2, no bruits appreciated Lungs- clear to auscultation bilaterally, no rales/wheezes Heart- normal rate, regular rhythm; no murmur, no gallop, no rub appreciated Abdomen-hypoactive bowel sounds, nondistended, soft, nontender, no masses or hepatosplenomegaly Extremities- no pretibial edema, no calf tenderness; peripheral pulses intact Neuro- alert, oriented x 3; CN 2-12 grossly intact; motor 5/5 bilaterally;sensation 100% on all extremities; no other gross focal neurologic deficits Skin- warm & dry Results & Data Results & Data Vital Signs (Past 12 Hours) Vital Signs Temp Pulse Resp BP Pulse Ox O2 Del Method 01/06/23 14:45 36.2 C L 66 15 102/60 97 Room Air 01/06/23 07:14 36.6 C 65 16 123/76 96 Room Air all noted and reviewed including below
[2023-01-07] MEDS: D5W AND NSS 1,000 ML IV SCH ×3 (00:02→19:42)
[2023-01-07] MEDS: ONDANSETRON INJ 2 MG/ML 2 ML VIAL IV PRN (04:12)
[2023-01-07] MEDS: ACETAMINOPHEN 1,000 MG/100 ML VIAL IV SCH ×3 (05:03→21:06)
[2023-01-07] MEDS: ENOXAPARIN INJ 40 MG/0.4 ML SYR SQ SCH (08:47)
[2023-01-07] MEDS: MEMANTINE HCL 5 MG TAB PO SCH ×2 (08:48→19:43)
[2023-01-07] MEDS: CARBIDOPA/LEVODOPA 25/100MG TAB PO SCH ×3 (08:48→19:42)
[2023-01-07] MEDS: lisinopril 5 MG TAB PO SCH (08:49)
[2023-01-07] MEDS: MULTIVITAMIN TAB PO SCH (08:49)
--- NOTE | 2023-01-07 12:26 | Surgery Progress Note ---
Date of Service January 07, 2023 Assessment & Plan (1) Small bowel obstruction: Plan: 72 year-old female with history of esophageal hernia repair and tubal ligation with prior SBO treated conservatively 3-4 years ago presented to emergency department with increasing abdominal pain and nausea that started yesterday morning. Passing flatus. Mild leukocytosis this am. Afebrile and hemodynamically stable. CT scan with high grade SBO with transition in the midline of pelvis. Abdomen is soft, nondistended, mildly tender in mid lower abdomen. 01/07/2023: emesis last evening, none so far today no abdominal pain today passing gas no bowel movement will obtain KUB to evaluate, mildy distended on my exam today Plan: Continue conservative management : NPO for bowel rest, IV fluids, Pain management and antiemetics as needed need NGT insertion at intermittent low suction. encouraged OOB to chair and ambulate Continue medical management will follow along Discussed with Dr. Quinn who has seen patient, agrees with above Admission and Anticipated Discharge Date Admission Date: January 06, 2023 Subjective feeling better this morning had nausea and vomiting last evening no abdominal pain today still passing gas, about same as yesterday, no bowel movement Does not feel bloated Physical Exam Constitutional: WD/WN, vitals as above cooperative and comfortable; no acute distress and not ill appearing Respiratory: normal respiratory effort; no respiratory distress Gastrointestinal (Abdomen): Inspection/Auscultation: abdomen normal to inspection, + abdomen distended (mildly distended in lower abdomen), + abdominal surgical scar and + hypoactive bowel sounds; + abnormal bowel sounds Percussion/Palpation: abdomen soft; abdomen nontender, no guarding, abdomen not rigid and abdomen not firm Skin: no rashes, warm and dry Psychiatric: Orientation: alert and oriented x 3 Results & Data Vital Signs (Past 12 Hours) Vital Signs Temp Pulse Resp BP Pulse Ox O2 Del Method 01/07/23 07:05 36.4 C L 77 16 149/84 H 96 Room Air Diagnostic Findings KUB- SBO, dilated Small bowel.
[2023-01-07] MEDS ORDERED: LIDOCAINE 2% JELLY 5 ML TUBE EXT ONE (12:33)
--- NOTE | 2023-01-07 14:27 | XRay Report ---
KUB CLINICAL HISTORY: Small bowel obstruction. FINDINGS: 3 AP, portable, supine abdominal radiographs are correlated with abdominal CT dated 01/06/20. There is persistent small bowel obstruction. Distended and gas-filled loops of small bowel measur e up to 5.5 cm in diameter. No evidence of intraperitoneal free air is seen on these supine images. T here are no abnormal abdominal calcifications. Phleboliths are seen in the pelvis. The skeletal struc tures are osteopenic and appear intact. There is moderate lumbosacral spondylosis. IMPRESSION: Persistent small bowel obstruction. Electronically signed by: Franky Williamson M.D. 01/07/2023 2:26 PM
--- NOTE | 2023-01-07 16:50 | Hospitalist Progress Note ---
Date of Service January 07, 2023 Assessment & Plan (1) Small bowel obstruction: Plan: 72-year-old female past medical significant for hypertension, Parkinson disease history of bowel obstruction in the past presents with abdominal pain and found to have a high-grade small bowel obstruction. SMALL BOWEL OBSTRUCTION HIGH-GRADE Transition point at mid pelvis General surgery consulted Continue with conservative management approach at this time-bowel rest, IV fluids Monitor closely 01/07 Still with hypoactive bowel sounds, and nausea KUB ordered:Persistent small bowel obstruction. NGT ordered Continue n.p.o., IV fluids HYPERTENSION Continue home lisinopril PARKINSON'S DISEASE Continue home carbidopa levodopa DVT prophylaxis Lovenox Disposition Pending PT and OT will be consulted (2) HTN (hypertension): (3) Parkinson disease: Admission and Anticipated Discharge Date Admission Date: January 06, 2023 Subjective Follow-up for small bowel obstruction, etc. Seen resting in bed, not in distress, comfortable Having some nausea No abdominal pain, no bowel movement, but with flatus Denies fevers or chills, shortness of breath, chest pain No other symptoms Review of Systems Review of Systems: all noted and negative except for above Physical Exam Physical Exam: General- oriented x 3, not in distress, speaks in sentences with no effort or accessory muscle use Eyes- anicteric Neck- no JVD Lungs- clear BS BL No crackles or wheezing Heart- normal rate, regular rhythm; no murmurs Abdomen- normal bowel sounds, nondistended, soft, nontender Extremities- no pretibial edema, no calf tenderness Neuro- alert, oriented x 3; no gross focal neurologic deficits Skin- warm & dry Results & Data Results & Data Vital Signs (Past 12 Hours) Vital Signs Temp Pulse Resp BP Pulse Ox O2 Del Method O2 Flow Rate 01/07/23 15:44 92 Nasal Cannula 2 01/07/23 15:02 36.3 C L 93 H 16 112/73 01/07/23 07:05 36.4 C L 77 16 149/84 H 96 Room Air all noted and reviewed including below
[2023-01-07] MEDS ORDERED: OLANZapine 10 MG/2.1 ML SDV IM STA ×2 (23:13→23:53)
[2023-01-08] MEDS: D5W AND NSS 1,000 ML IV SCH ×3 (04:59→14:49)
[2023-01-08] MEDS: ACETAMINOPHEN 1,000 MG/100 ML VIAL IV SCH ×3 (05:00→21:42)
--- NOTE | 2023-01-08 06:36 | Surgery Progress Note ---
Date of Service January 08, 2023 Assessment & Plan (1) Small bowel obstruction: Plan: Patient has been admitted on the hospitalist service. Recommend continue care as follows: Continue n.p.o. status until patient has return of bowel function. As patient has not had any emesis since inadvertent removal of her NG tube will hold on replacing this as the shift supervisor rn nurse notes that there is difficulty and attempts trying to replace this. If patient does have worsening of her abdominal exam or has recurrent emesis her NG tube may have to be replaced. Continue IV fluids while n.p.o. p.o. and until oral intake is adequate We will check KUB this morning Admission and Anticipated Discharge Date Admission Date: January 06, 2023 Supervising Physician Co-Signing Physician Notes Patient seen and examined, labs and image reviewed, agree with above. Admitted with SBO, NG tube placed yesterday but she pulled out overnight. She was apparently combative and refused replacement. She is calm this morning and says her abdomen feels better. She has passed some flatus. On exam she is afebrile stable vitals, abdomen soft, nontender, minimally distended. KUB shows persistent small bowel obstruction, slightly less dilation than yesterday. We will continue to monitor, may advance to clear liquids if continues to have meaningful return of bowel function Subjective Patient is currently resting in bed/sleeping. She is arousable. She does note some pain with palpation of her abdomen. I discussed with shift supervisor rn RN and patient is noted to be confused and therefore is not reliable historian. They note that the patient was pulling at her lines and tubes last evening and pulled her NG tube out. Since pulling out her NG tube she has not had any nausea or vomiting. They do not feel as though she is passing any flatus and she has not had a bowel movement. There have been no reported fevers. Physical Exam Gastrointestinal (Abdomen): Abdomen is soft and nondistended. It is nonrigid. Palpation of the abdomen did appear to cause pain in a generalized fashion. There did not appear to be any rebound tenderness however. Results & Data Vital Signs (Past 12 Hours) Vital Signs Temp Pulse Resp BP Pulse Ox O2 Del Method 01/07/23 23:07 37.5 C 105 H 16 155/86 H 95 Room Air 01/07/23 22:39 37.4 C 110 H 20 99/63 L 91 Room Air PG Care Time/CCT Total # of Minutes Spent Total Time Spent with Patient: Total time spent is greater than 50% in coordination of care (as documented) at patient's floor/unit and/or counseling patient: Coding Level of Care Code 60108 SUB INP/OBS CARE 07/07MIN Diagnoses Small bowel obstruction K56.609
--- NOTE | 2023-01-08 08:15 | XRay Report ---
KUB CLINICAL HISTORY: Small bowel obstruction. FINDINGS: An AP, portable, supine abdominal radiograph is compared to study dated 01/07/2023 and corre lated with abdominal CT dated 01/05/2023. There is persistent small bowel obstruction. Distended and g as-filled loops of small bowel measure up to 5 cm in diameter. No evidence of intraperitoneal free ai r is seen on this supine image. There are no abnormal abdominal calcifications. Phleboliths are seen in the pelvis. The skeletal structures are osteopenic and appear intact. There is moderate lumbosacra l spondylosis. IMPRESSION: Persistent small bowel obstruction. Electronically signed by: Franky Williamson M.D. 01/08/2023 8:14 AM
[2023-01-08] MEDS: CARBIDOPA/LEVODOPA 25/100MG TAB PO SCH ×3 (08:37→19:27)
[2023-01-08] MEDS: lisinopril 5 MG TAB PO SCH (08:37)
[2023-01-08] MEDS: MULTIVITAMIN TAB PO SCH (08:37)
[2023-01-08] MEDS: MEMANTINE HCL 5 MG TAB PO SCH ×2 (08:37→19:27)
[2023-01-08] MEDS: ENOXAPARIN INJ 40 MG/0.4 ML SYR SQ SCH (08:38)
--- NOTE | 2023-01-08 10:49 | Electrocardiogram Report ---
Test Reason : Blood Pressure : / mmHG Vent. Rate : 094 BPM Atrial Rate : 094 BPM P-R Int : 130 ms QRS Dur : 076 ms QT Int : 328 ms P-R-T Axes : 057 011 058 degrees QTc Int : 410 ms Poor data quality, interpretation may be adversely affected Normal sinus rhythm Normal ECG No previous ECGs available Confirmed by Vimal Fajardo ([id number]) on 01/08/2023 10:48:32 AM Referred By: REFERRED SELF Confirmed By:Vimal Fajardo
[2023-01-08 11:52] LABS: BUN Creatinine Ratio 22.2 (10-20); Calcium 9.5 mg/dl (8.6-10.3); Creatinine Clr Calc Pharmacy 33.6 ml/min; Est GFR (African American) 48.6 ml/min; Est GFR (Non-African American) 41.9 ml/min; Magnesium 1.9 mg/dl (1.7-2.4); Potassium 3.3 mmol/L (3.5-5.1)
--- NOTE | 2023-01-08 17:18 | Hospitalist Progress Note ---
Date of Service January 08, 2023 Assessment & Plan (1) Small bowel obstruction: Plan: 72-year-old female past medical significant for hypertension, Parkinson disease history of bowel obstruction in the past presents with abdominal pain and found to have a high-grade small bowel obstruction. SMALL BOWEL OBSTRUCTION HIGH-GRADE Transition point at mid pelvis General surgery consulted Continue with conservative management approach at this time-bowel rest, IV fluids Monitor closely 01/08 NG tube accidentally removed this morning No active nausea, pain Reports significant reflux KUB ordered:Persistent small bowel obstruction. Continue n.p.o., IV fluids Add pantoprazole 40 mg IV twice daily HYPERTENSION Continue home lisinopril Monitor closely PARKINSON'S DISEASE Continue home carbidopa levodopa DVT prophylaxis Lovenox Disposition Pending (2) HTN (hypertension): (3) Parkinson disease: Admission and Anticipated Discharge Date Admission Date: January 06, 2023 Subjective Follow-up for small bowel obstruction, etc. Seen resting in bed, sitting up, alert and awake, oriented Denies abdominal pain Has occasional nausea but reports significant reflux No other new symptoms Review of Systems Review of Systems: all noted and negative except for above Physical Exam Physical Exam: General- oriented x 3, not in distress, speaks in sentences with no effort or accessory muscle use Eyes- anicteric Neck- no JVD Lungs- clear breath sounds BL Heart- normal rate, regular rhythm; no murmurs Abdomen-hypoactive bowel sounds, nondistended, soft, no tenderness Extremities- no pretibial edema, no calf tenderness Neuro- alert, oriented x 3; no gross focal neurologic deficits Skin- warm & dry Results & Data Results & Data Vital Signs (Past 12 Hours) Vital Signs Temp Pulse Resp BP BP Pulse Ox O2 Del Method 01/08/23 15:04 36.9 C 71 16 122/80 96 Room Air 01/08/23 07:16 36.9 C 76 14 101/66 95 Room Air all noted and reviewed including below
[2023-01-08] MEDS ORDERED: POTASSIUM CHLORIDE CRTAB 20 MEQ TABCR PO STA (17:19)
[2023-01-08] MEDS: POTASSIUM CHLORIDE / WTR 10 MEQ/100 ML PLCT IV SCH ×4 (17:29→20:27)
[2023-01-08] MEDS: PANTOprazole 40 MG in SYRINGE 0 ML IV SCH (18:16)
[2023-01-09] MEDS: D5W AND NSS 1,000 ML IV SCH ×3 (01:05→17:38)
[2023-01-09] MEDS: ACETAMINOPHEN 1,000 MG/100 ML VIAL IV SCH (05:04)
--- NOTE | 2023-01-09 06:05 | Surgery Progress Note ---
Date of Service January 09, 2023 Assessment & Plan (1) Small bowel obstruction: Plan: Patient is admitted on the hospitalist service. Continue care as follows: Consideration be given to allowing clear liquids as the patient has not had any nausea or vomiting since NG tube has been removed Mobilize as able Check a.m. labs when available Admission and Anticipated Discharge Date Admission Date: January 06, 2023 Supervising Physician Co-Signing Physician Notes Patient seen and examined, agree with above. 72-year-old female with Parkinson's dementia admitted for small bowel obstruction. Continues to pass flatus and states her abdomen feels better. On exam afebrile stable vitals, abdomen soft, less distended, minimally tender. We will continue with n.p.o. for now, if continues with meaningful return of bowel function may advance to clear liquids. Subjective Patient is pleasantly confused. She offers no complaints at this time. I discussed with the assembler 1st shift RN and patient has not had any nausea or vomiting. There is been no reported bowel movements. No recorded fevers. RN notes that there have been no surgical issues overnight. Physical Exam Gastrointestinal (Abdomen): Abdomen is soft and nondistended. It is nonrigid. Palpation did not appear to elicit pain this morning. Bowel sounds are present. Results & Data Vital Signs (Past 12 Hours) Vital Signs Temp Pulse Resp BP Pulse Ox O2 Del Method 01/08/23 21:51 36.7 C 64 18 117/73 95 Room Air PG Care Time/CCT Total # of Minutes Spent Total Time Spent with Patient: Total time spent is greater than 50% in coordination of care (as documented) at patient's floor/unit and/or counseling patient: Coding Level of Care Code 08690 SUB INP/OBS CARE 07/07MIN Diagnoses Small bowel obstruction K56.609
[2023-01-09 07:37] LABS: BUN Creatinine Ratio 33.3 (10-20); Calcium 8.8 mg/dl (8.6-10.3); Creatinine Clr Calc Pharmacy 41.5 ml/min; Est GFR (African American) 62.8 ml/min; Est GFR (Non-African American) 54.1 ml/min; Magnesium 1.9 mg/dl (1.7-2.4); Potassium 3.7 mmol/L (3.5-5.1)
[2023-01-09] MEDS: ENOXAPARIN INJ 40 MG/0.4 ML SYR SQ SCH (08:23)
[2023-01-09] MEDS: lisinopril 5 MG TAB PO SCH (08:23)
[2023-01-09] MEDS: PANTOprazole 40 MG in SYRINGE 0 ML IV SCH ×2 (08:23→21:15)
[2023-01-09] MEDS: MULTIVITAMIN TAB PO SCH (08:23)
[2023-01-09] MEDS: MEMANTINE HCL 5 MG TAB PO SCH ×2 (08:23→21:15)
[2023-01-09] MEDS: CARBIDOPA/LEVODOPA 25/100MG TAB PO SCH ×3 (08:23→21:11)
[2023-01-09] MEDS ORDERED: KETOROLAC TROMETHAMINE 15 MG/ML VIAL IV ONE (09:14)
--- NOTE | 2023-01-09 10:29 | Electrocardiogram Report ---
Test Reason : Blood Pressure : / mmHG Vent. Rate : 092 BPM Atrial Rate : 092 BPM P-R Int : 130 ms QRS Dur : 076 ms QT Int : 332 ms P-R-T Axes : 065 015 060 degrees QTc Int : 410 ms Poor data quality, interpretation may be adversely affected Normal sinus rhythm Nonspecific T wave abnormality No previous ECGs available Confirmed by Vimal Fajardo ([id number]) on 01/09/2023 10:29:19 AM Referred By: REFERRED SELF Confirmed By:Vimal Fajardo
[2023-01-09] MEDS: AMPICILLIN/SULBACTAM SOD 3,000 MG in 0.9 % SODIUM CHLORIDE 100 ML IV SCH ×3 (10:42→21:15)
--- NOTE | 2023-01-09 15:42 | Hospitalist Progress Note ---
Date of Service January 09, 2023 Assessment & Plan (1) Small bowel obstruction: Plan: 72-year-old female past medical significant for hypertension, Parkinson disease history of bowel obstruction in the past presents with abdominal pain and found to have a high-grade small bowel obstruction. SMALL BOWEL OBSTRUCTION HIGH-GRADE Transition point at mid pelvis General surgery consulted Continue with conservative management approach at this time-bowel rest, IV fluids Monitor closely 01/09 No active nausea, pain Still without bowel movements or flatus Continue n.p.o., IV fluids Continue Protonix IV twice daily POSSIBLE ACUTE SINUSITIS Start Unasyn IV Toradol given for pain HYPERTENSION Continue home lisinopril Monitor closely PARKINSON'S DISEASE Continue home carbidopa levodopa DVT prophylaxis Lovenox Disposition Pending (2) HTN (hypertension): (3) Parkinson disease: Admission and Anticipated Discharge Date Admission Date: January 06, 2023 Subjective Follow-up for small bowel obstruction, etc. Seen resting in bed, comfortable, not in distress Reports having frontal/sinus pressure, pain Associated with nasal drainage, yellow sputum No fevers or chills No abdominal pain, nausea No bowel movements or flatus yet Review of Systems Review of Systems: all noted and negative except for above Physical Exam Physical Exam: General- oriented x 3, not in distress, speaks in sentences with no effort or accessory muscle use Eyes- anicteric Neck- no JVD Lungs- clear breath sounds bilaterally, no rales/wheezes Heart- normal rate, regular rhythm; no murmurs Abdomen-hypoactive bowel sounds, nondistended, soft, nontender Extremities- no pretibial edema, no calf tenderness Neuro- alert, oriented x 3; no gross focal neurologic deficits Skin- warm & dry Results & Data Results & Data Vital Signs (Past 12 Hours) Vital Signs Temp Pulse Resp BP BP Pulse Ox O2 Del Method 01/09/23 15:26 36.5 C 77 18 137/83 96 Room Air 01/09/23 07:19 36.3 C L 82 18 147/83 H 94 Room Air all noted and reviewed including below
[2023-01-09] MEDS: ACETAMINOPHEN 325 MG TAB PO PRN (15:45)
[2023-01-10] MEDS: D5W AND NSS 1,000 ML IV SCH ×3 (01:25→13:17)
[2023-01-10] MEDS: AMPICILLIN/SULBACTAM SOD 3,000 MG in 0.9 % SODIUM CHLORIDE 100 ML IV SCH ×4 (04:20→21:20)
[2023-01-10] MEDS: MULTIVITAMIN TAB PO SCH (07:58)
[2023-01-10] MEDS: PANTOprazole 40 MG in SYRINGE 0 ML IV SCH ×2 (07:58→21:20)
[2023-01-10] MEDS: lisinopril 5 MG TAB PO SCH (07:59)
[2023-01-10] MEDS: ENOXAPARIN INJ 40 MG/0.4 ML SYR SQ SCH (07:59)
[2023-01-10] MEDS: MEMANTINE HCL 5 MG TAB PO SCH ×2 (07:59→21:21)
[2023-01-10] MEDS: CARBIDOPA/LEVODOPA 25/100MG TAB PO SCH ×3 (08:00→21:21)
[2023-01-10 08:07] LABS: BUN Creatinine Ratio 38.7 (10-20); Calcium 8.8 mg/dl (8.6-10.3); Creatinine Clr Calc Pharmacy 45.5 ml/min; Est GFR (African American) 70.2 ml/min; Est GFR (Non-African American) 60.5 ml/min; Magnesium 2.1 mg/dl (1.7-2.4); Potassium 3.7 mmol/L (3.5-5.1)
--- NOTE | 2023-01-10 09:41 | XRay Report ---
KUB HISTORY: Acute generalized abdominal pain SBO COMPARISON: KUB 01/08/2023, CT 01/05/2023 FINDINGS: Persistent small bowel obstruction with decreased small bowel distention compared to the pr ior studies. Dilated small bowel loops measure up to 4.8 cm within the central abdomen. No renal luisito culi. No ureteral calculi. No pneumoperitoneum or pneumatosis. No fracture. IMPRESSION: Persistent small bowel obstruction with decreased distention compared to the 01/08/2023 exam. ACT 112: Negative or not required by law. The above report was generated using voice recognition software. It may contain grammatical, syntax o r spelling errors. Electronically signed by: Natalio Saavedra M.D. 01/10/2023 9:40 AM
[2023-01-10] MEDS ORDERED: POLYETHYLENE (MIRALAX) 17 GM PACK PO ONE (12:21)
[2023-01-10] MEDS ORDERED: bisacodyL 10 MG SUPP PR STA (12:21)
--- NOTE | 2023-01-10 13:14 | Surgery Progress Note ---
Date of Service January 10, 2023 Assessment & Plan (1) Small bowel obstruction: Plan: 72 year-old female with history of esophageal hernia repair and tubal ligation with prior SBO treated conservatively 3-4 years ago presented to emergency department with increasing abdominal pain and nausea that started yesterday morning. Passing flatus. Mild leukocytosis this am. Afebrile and hemodynamically stable. CT scan with high grade SBO with transition in the midline of pelvis. Abdomen is soft, nondistended, mildly tender in mid lower abdomen. 01/10/2023 afebrile, vss no abdominal pain, no n,v with NGT removed passing gas KUB with decreased small bowel distention, formed stool in low sigmoid/rectum Plan: Dulcolax suppository now Miralax now okay for ice chips and sips of water, possibly clears this evening encourage ambulation to increase GI motility continue medical management Discussed with Dr. Quinn who has seen patient, agrees with above Admission and Anticipated Discharge Date Admission Date: January 06, 2023 Subjective feeling better today passing small amounts of gas, no bowel movement no abdominal pain at rest, pain with examination no nausea or vomiting Physical Exam Constitutional: WD/WN, vitals as above cooperative and comfortable; no acute distress and not ill appearing Gastrointestinal (Abdomen): Inspection/Auscultation: abdomen normal to inspection; abdomen not distended Percussion/Palpation: + abdomen tender (generalized tenderness on palpation) and abdomen soft; no guarding, abdomen not rigid and abdomen not firm Skin: no rashes, warm and dry Psychiatric: Orientation: alert Results & Data Vital Signs (Past 12 Hours) Vital Signs Temp Pulse Resp BP Pulse Ox O2 Del Method 01/10/23 07:29 36.6 C 82 16 141/83 H 95 Room Air Laboratory Results 01/10/23 Range/Units 07:05 Sodium 141 (136-145) mmol/L Potassium 3.7 (3.5-5.1) mmol/L Chloride 108 H (98-107) mmol/L Carbon Dioxide 25 (21-32) mmol/L Anion Gap 8 (3-11) BUN 36 H (6-23) mg/dl Creatinine 0.93 (0.6-1.2) mg/dl Est Cr Clr Drug Dosing 45.5 ml/min Est GFR ( Amer) 70.2 ml/min Est GFR (Non-Af Amer) 60.5 ml/min BUN/Creatinine Ratio 38.7 H (10-20) Glucose 135 H (70-99(Fasting)) mg/dl Calcium 8.8 (8.6-10.3) mg/dl Magnesium 2.1 (1.7-2.4) mg/dl Diagnostic Findings KUB HISTORY: Acute generalized abdominal pain SBO COMPARISON: KUB 01/08/2023, CT 01/05/2023 FINDINGS: Persistent small bowel obstruction with decreased small bowel distention compared to the prior studies. Dilated small bowel loops measure up to 4.8 cm within the central abdomen. No renal calculi. No ureteral calculi. No pneumoperitoneum or pneumatosis. No fracture. IMPRESSION: Persistent small bowel obstruction with decreased distention compared to the 01/08/2023 exam.
--- NOTE | 2023-01-10 16:59 | Hospitalist Progress Note ---
Date of Service January 10, 2023 Assessment & Plan (1) Small bowel obstruction: Plan: [id number] female past medical significant for hypertension, Parkinson disease history of bowel obstruction in the past presents with abdominal pain and found to have a high-grade small bowel obstruction. SMALL BOWEL OBSTRUCTION HIGH-GRADE Transition point at mid pelvis General surgery consulted Continue with conservative management approach at this time-bowel rest, IV flui ds Monitor closely 01/10 No active nausea, pain Repeat KUB: Improving Tolerating ice chips, sips of water Advance to clear liquids this evening Continue Protonix IV twice daily POSSIBLE ACUTE SINUSITIS Symptoms improving Continue Unasyn IV day #3 HYPERTENSION Continue home lisinopril Monitor closely PARKINSON'S DISEASE Continue home carbidopa levodopa DVT prophylaxis Lovenox Disposition PT and OT evaluation Usual lives at home with her family (2) HTN (hypertension): (3) Parkinson disease: Admission and Anticipated Discharge Date Admission Date: January 06, 2023 Subjective Follow-up for small bowel obstruction, etc. Seen sitting up in wheelchair, comfortable, in good spirits States she feels much better today No abdominal pain, no nausea or vomiting, positive flatus No BMs yet Headache has resolved Sinus congestion and drainage also resolved No other symptom Review of Systems Review of Systems: all noted and negative except for above Physical Exam Physical Exam: General- oriented x 3, not in distress, speaks in sentences with no effort or accessory muscle use Eyes- anicteric Neck- no JVD Lungs- clear breath sounds bilaterally, no crackles Heart- normal rate, regular rhythm; no murmurs Abdomen-hypoactive bowel sounds better than yesterday, nondistended, soft, nontender Extremities- no pretibial edema, no calf tenderness Neuro- alert, oriented x 3; no gross focal neurologic deficits Skin- warm & dry Results & Data Results & Data Vital Signs (Past 12 Hours) Vital Signs Temp Pulse Resp BP Pulse Ox O2 Del Method 01/10/23 14:38 36.7 C 73 16 131/81 93 Room Air 01/10/23 07:29 36.6 C 82 16 141/83 H 95 Room Air all noted and reviewed including below
[2023-01-10] MEDS: ONDANSETRON INJ 2 MG/ML 2 ML VIAL IV PRN (21:20)
[2023-01-11] MEDS ORDERED: PROMETHAZINE HCL 6.25 MG in SODIUM CHLORIDE 0.9% 50 ML IV PRN (01:30)
--- NOTE | 2023-01-11 01:31 | Communication Note ---
Date of Service: January 11, 2023 Patient with nausea, emesis, not responsive to Zofran as per RN No abdominal pain as per RN. Patient diet advanced to clears from n.p.o. last night. AP SBO Referred back to n.p.o. status.
[2023-01-11] MEDS: AMPICILLIN/SULBACTAM SOD 3,000 MG in 0.9 % SODIUM CHLORIDE 100 ML IV SCH ×4 (04:24→21:35)
[2023-01-11 07:12] LABS: BUN Creatinine Ratio 33.3 (10-20); Calcium 8.4 mg/dl (8.6-10.3); Magnesium 2.1 mg/dl (1.7-2.4); Potassium 3.4 mmol/L (3.5-5.1)
[2023-01-11] MEDS: D5W AND NSS 1,000 ML IV SCH ×2 (09:17→22:24)
[2023-01-11] MEDS: POTASSIUM CHLORIDE / WTR 10 MEQ/100 ML PLCT IV SCH ×2 (09:17→10:38)
[2023-01-11] MEDS: CARBIDOPA/LEVODOPA 25/100MG TAB PO SCH ×3 (09:25→21:36)
[2023-01-11] MEDS: PANTOprazole 40 MG in SYRINGE 0 ML IV SCH ×2 (09:26→21:36)
[2023-01-11] MEDS: ENOXAPARIN INJ 40 MG/0.4 ML SYR SQ SCH (09:26)
[2023-01-11] MEDS: MEMANTINE HCL 5 MG TAB PO SCH ×2 (09:26→21:36)
[2023-01-11] MEDS: lisinopril 5 MG TAB PO SCH (09:27)
[2023-01-11] MEDS: MULTIVITAMIN TAB PO SCH (09:27)
--- NOTE | 2023-01-11 11:29 | Surgery Progress Note ---
Date of Service January 11, 2023 Assessment & Plan (1) Small bowel obstruction: Plan: 72 year-old female with history of esophageal hernia repair and tubal ligation with prior SBO treated conservatively 3-4 years ago presented to emergency department with increasing abdominal pain and nausea that started yesterday morning. Passing flatus. Mild leukocytosis this am. Afebrile and hemodynamically stable. CT scan with high grade SBO with transition in the midline of pelvis. Abdomen is soft, nondistended, mildly tender in mid lower abdomen. 01/10/2023 afebrile, vss no abdominal pain, no n,v with NGT removed passing gas KUB with decreased small bowel distention, formed stool in low sigmoid/rectum Plan: Dulcolax suppository now Miralax now okay for ice chips and sips of water, possibly clears this evening encourage ambulation to increase GI motility continue medical management Discussed with Dr. Quinn who has seen patient, agrees with above 01/11/2023 11:28 AM, DR. Quinn F/U SBO pt passed gas and BM, doing better, clear diet, KUB will F/U Admission and Anticipated Discharge Date Admission Date: January 06, 2023 Supervising Physician Co-Signing Physician Notes Patient seen and examined, agree with above. 72-year-old female with Parkinson's dementia admitted for small bowel obstruction. Continues to pass flatus and states her abdomen feels better. On exam afebrile stable vitals, abdomen soft, less distended, minimally tender. We will continue with n.p.o. for now, if continues with meaningful return of bowel function may advance to clear liquids. Subjective Follow-up for small bowel obstruction, etc. Seen sitting up in wheelchair, comfortable, in good spirits States she feels much better today No abdominal pain, no nausea or vomiting, positive flatus No BMs yet Headache has resolved Sinus congestion and drainage also resolved No other symptom 01/11/2023 11:26 AM, Dr Quinn. F/U SBO, pt passed gas and BM. less abdominal pain, pt feels better, no nausea, no vomiting. Physical Exam Constitutional: WD/WN, vitals as above Eyes: PERRL, conjunctivae normal, anicteric sclerae Neck: trachea midline, no thyromegaly Respiratory: normal respiratory effort, lungs clear to auscultation Gastrointestinal (Abdomen): soft, NT, ND, BS+ Neurologic: patellar DTR's 2+ bilat, sensation intact Psychiatric: A+Ox3, euthymic affect Results & Data Vital Signs (Past 12 Hours) Vital Signs Temp Pulse Resp BP Pulse Ox O2 Del Method 01/11/23 07:06 36.5 C 70 16 122/84 95 Room Air Laboratory Results Lab Results 01/05/23 01/05/23 01/05/23 Range/Units 18:48 18:48 18:57 WBC 9.95 (4.8-10.8) K/ul RBC 4.39 (4.20-5.40) M/uL Hgb 13.7 (12.0-16.0) g/dl Hct 41.4 (37.0-47.0) % MCV 94.3 (80.0-100.0) fL MCH 31.2 (25.0-34.0) pg MCHC 33.1 (32.0-36.0) g/dL RDW Std Deviation 44.9 (36.4-46.3) fL RDW Coeff of Brandee 12.9 (11.5-14.5) % Plt Count 176 (130-400) K/uL MPV 9.4 (9.4-12.4) fL Immature Gran % (Auto) 0.3 % Neut % (Auto) 82.5 % Lymph % (Auto) 9.9 % Hall % (Auto) 6.0 % Eos % (Auto) 0.8 % Baso % (Auto) 0.5 % Neut # (Auto) 8.20 H (1.40-6.50) K/uL Lymph # (Auto) 0.99 L (1.2-3.4) K/uL Hall # (Auto) 0.60 H (0.11-0.59) K/uL Eos # (Auto) 0.08 (0-0.50) K/uL Baso # (Auto) 0.05 (0-0.2) K/uL Immature Gran # (Auto) 0.03 (0.01-0.20) K/uL Sodium 137 (136-145) mmol/L Potassium 4.3 (3.5-5.1) mmol/L Chloride 104 (98-107) mmol/L Carbon Dioxide 26 (21-32) mmol/L Anion Gap 7 (3-11) BUN 27 H (6-23) mg/dl Creatinine 1.20 (0.6-1.2) mg/dl Est Cr Clr Drug Dosing 35.1 ml/min Est GFR ( Amer) 51.6 ml/min Est GFR (Non-Af Amer) 44.5 ml/min BUN/Creatinine Ratio 22.5 H (10-20) Glucose 124 H (70-99(Fasting)) mg/dl Calcium 10.0 (8.6-10.3) mg/dl Magnesium (1.7-2.4) mg/dl Total Bilirubin 0.6 (0.2-1.0) mg/dl AST 19 (13-39) U/L ALT 3 L (7-52) U/L Alkaline Phosphatase 82 (34-104) U/L Total Protein 8.0 (6.0-8.3) gm/dl Albumin 4.7 (3.4-5.0) gm/dl Globulin 3.3 (2.5-4.0) gm/dl Albumin/Globulin Ratio 1.4 (0.9-2) Lipase 17 (11-82) U/L Urine Color Dark Yellow Urine Appearance Cloudy A (Clear) Urine pH 5.5 (4.5-7.5) Ur Specific [place] 1.036 H (1.000-1.030) Urine Protein 1+ H (Negative) Urine Glucose (UA) Negative (Negative) Urine Ketones 1+ H (Negative) Urine Blood Negative (Negative) Urine Nitrite Negative (Negative) Urine Bilirubin 1+ H (Negative) Urine Urobilinogen Negative (Negative) Ur Leukocyte Esterase Trace H (Negative) Urine WBC (Auto) 5-10 H (0-5) /hpf Urine RBC (Auto) 0-4 (0-4) /hpf U Hyaline Cast (Auto) 1-5 (0-5) /lpf U Epithel Cells (Auto) >30 H (0-5) /lpf Urine Bacteria (Auto) Negative (Negative) Ur Renal Epithelial Cell Not Reportable Urine Yeast Not Reportable 01/06/23 01/06/23 01/08/23 Range/Units 07:25 07:25 11:15 WBC 11.37 H (4.8-10.8) K/ul RBC 4.19 L (4.20-5.40) M/uL Hgb 13.1 (12.0-16.0) g/dl Hct 39.6 (37.0-47.0) % MCV 94.5 (80.0-100.0) fL MCH 31.3 (25.0-34.0) pg MCHC 33.1 (32.0-36.0) g/dL RDW Std Deviation 44.7 (36.4-46.3) fL RDW Coeff of Brandee 13.1 (11.5-14.5) % Plt Count 155 (130-400) K/uL MPV 9.6 (9.4-12.4) fL Immature Gran % (Auto) 0.4 % Neut % (Auto) 87.8 % Lymph % (Auto) 5.3 % Hall % (Auto) 6.0 % Eos % (Auto) 0.2 % Baso % (Auto) 0.3 % Neut # (Auto) 10.00 H (1.40-6.50) K/uL Lymph # (Auto) 0.60 L (1.2-3.4) K/uL Hall # (Auto) 0.68 H (0.11-0.59) K/uL Eos # (Auto) 0.02 (0-0.50) K/uL Baso # (Auto) 0.03 (0-0.2) K/uL Immature Gran # (Auto) 0.04 (0.01-0.20) K/uL Sodium 136 144 (136-145) mmol/L Potassium 4.1 3.3 L (3.5-5.1) mmol/L Chloride 107 104 (98-107) mmol/L Carbon Dioxide 24 31 (21-32) mmol/L Anion Gap 5 9 (3-11) BUN 20 28 H (6-23) mg/dl Creatinine 0.97 1.26 H (0.6-1.2) mg/dl Est Cr Clr Drug Dosing 43.6 33.6 ml/min Est GFR ( Amer) 66.7 48.6 ml/min Est GFR (Non-Af Amer) 57.5 41.9 ml/min BUN/Creatinine Ratio 20.6 H 22.2 H (10-20) Glucose 192 H 130 H (70-99(Fasting)) mg/dl Calcium 8.9 9.5 (8.6-10.3) mg/dl Magnesium 1.9 1.9 (1.7-2.4) mg/dl Total Bilirubin (0.2-1.0) mg/dl AST (13-39) U/L ALT (7-52) U/L Alkaline Phosphatase (34-104) U/L Total Protein (6.0-8.3) gm/dl Albumin (3.4-5.0) gm/dl Globulin (2.5-4.0) gm/dl Albumin/Globulin Ratio (0.9-2) Lipase (11-82) U/L Urine Color Urine Appearance (Clear) Urine pH (4.5-7.5) Ur Specific [place] (1.000-1.030) Urine Protein (Negative) Urine Glucose (UA) (Negative) Urine Ketones (Negative) Urine Blood (Negative) Urine Nitrite (Negative) Urine Bilirubin (Negative) Urine Urobilinogen (Negative) Ur Leukocyte Esterase (Negative) Urine WBC (Auto) (0-5) /hpf Urine RBC (Auto) (0-4) /hpf U Hyaline Cast (Auto) (0-5) /lpf U Epithel Cells (Auto) (0-5) /lpf Urine Bacteria (Auto) (Negative) Ur Renal Epithelial Cell Urine Yeast 01/09/23 01/10/23 01/11/23 Range/Units 06:25 07:05 06:21 WBC (4.8-10.8) K/ul RBC (4.20-5.40) M/uL Hgb (12.0-16.0) g/dl Hct (37.0-47.0) % MCV (80.0-100.0) fL MCH (25.0-34.0) pg MCHC (32.0-36.0) g/dL RDW Std Deviation (36.4-46.3) fL RDW Coeff of Brandee (11.5-14.5) % Plt Count (130-400) K/uL MPV (9.4-12.4) fL Immature Gran % (Auto) % Neut % (Auto) % Lymph % (Auto) % Hall % (Auto) % Eos % (Auto) % Baso % (Auto) % Neut # (Auto) (1.40-6.50) K/uL Lymph # (Auto) (1.2-3.4) K/uL Hall # (Auto) (0.11-0.59) K/uL Eos # (Auto) (0-0.50) K/uL Baso # (Auto) (0-0.2) K/uL Immature Gran # (Auto) (0.01-0.20) K/uL Sodium 139 141 143 (136-145) mmol/L Potassium 3.7 3.7 3.4 L (3.5-5.1) mmol/L Chloride 105 108 H 111 H (98-107) mmol/L Carbon Dioxide 27 25 24 (21-32) mmol/L Anion Gap 7 8 8 (3-11) BUN 34 H 36 H 30 H (6-23) mg/dl Creatinine 1.02 0.93 0.90 (0.6-1.2) mg/dl Est Cr Clr Drug Dosing 41.5 45.5 47.0 ml/min Est GFR ( Amer) 62.8 70.2 73.0 ml/min Est GFR (Non-Af Amer) 54.1 60.5 63.0 ml/min BUN/Creatinine Ratio 33.3 H 38.7 H 33.3 H (10-20) Glucose 131 H 135 H 127 H (70-99(Fasting)) mg/dl Calcium 8.8 8.8 8.4 L (8.6-10.3) mg/dl Magnesium 1.9 2.1 2.1 (1.7-2.4) mg/dl Total Bilirubin (0.2-1.0) mg/dl AST (13-39) U/L ALT (7-52) U/L Alkaline Phosphatase (34-104) U/L Total Protein (6.0-8.3) gm/dl Albumin (3.4-5.0) gm/dl Globulin (2.5-4.0) gm/dl Albumin/Globulin Ratio (0.9-2) Lipase (11-82) U/L Urine Color Urine Appearance (Clear) Urine pH (4.5-7.5) Ur Specific [place] (1.000-1.030) Urine Protein (Negative) Urine Glucose (UA) (Negative) Urine Ketones (Negative) Urine Blood (Negative) Urine Nitrite (Negative) Urine Bilirubin (Negative) Urine Urobilinogen (Negative) Ur Leukocyte Esterase (Negative) Urine WBC (Auto) (0-5) /hpf Urine RBC (Auto) (0-4) /hpf U Hyaline Cast (Auto) (0-5) /lpf U Epithel Cells (Auto) (0-5) /lpf Urine Bacteria (Auto) (Negative) Ur Renal Epithelial Cell Urine Yeast
--- NOTE | 2023-01-11 14:07 | XRay Report ---
KUB CLINICAL HISTORY: Small bowel obstruction. COMPARISON STUDY: CT of the abdomen and pelvis January 05, 2023 and KUB January 10, 2023. FINDINGS: There is suspected gaseous distention of the stomach. Moderate small bowel dilatation is ag ain noted. The bowel loops measure up to 4.9 cm in caliber. Sensitivity for detection of free air is diminished on this supine exam but none is identified. IMPRESSION: 1. Findings consistent with a persistent small bowel obstruction. 2. Suspected gastric distention. ACT 112: Negative or not required by law. Electronically signed by: Maksim Starks M.D. 01/11/2023 2:05 PM
--- NOTE | 2023-01-11 15:01 | Hospitalist Progress Note ---
Date of Service January 11, 2023 Assessment & Plan (1) Small bowel obstruction: Plan: 72-year-old female past medical significant for hypertension, Parkinson disease history of bowel obstruction in the past presents with abdominal pain and found to have a high-grade small bowel obstruction. SMALL BOWEL OBSTRUCTION HIGH-GRADE Transition point at mid pelvis General surgery consulted Continue with conservative management approach at this time-bowel rest, IV fluids PPI BID Pt diet was advanced to clears 01/10 evening, developed nausea now back to NPO with sips/chips repeat KUB today: persistent SBO appreciate Gen surg recs she is starting to have bowel motility POSSIBLE ACUTE SINUSITIS Symptoms improving Continue Unasyn IV day #4 HYPERTENSION Continue home lisinopril Monitor closely PARKINSON'S DISEASE Continue home carbidopa levodopa DVT prophylaxis Lovenox Disposition PT and OT evaluation Usual lives at home with her family FULL CODE Pt was seen and examined in collaboration with Dr. Carpenter, please see addendum A total of 45 was spent coordinating, documenting, and providing care for this patient excluding time spent in the performance of separately billed services. This included personally viewing all current laboratories and imaging studies, medication reconciliation, outpatient chart review, and discussion with specialists. (2) HTN (hypertension): (3) Parkinson disease: Admission and Anticipated Discharge Date Admission Date: January 06, 2023 Supervising Physician Co-Signing Physician Notes Attending Addendum: care coordinated with CHRISTINA Scott please refer to her notes for full details, I agree with her notes patient seen and examined, records reviewed by myself as well diagnoses and plan of care as per CHRISTINA Carpenter MD Subjective Pt seen and examined in room 383-2. Follow up SBO. Denies abd pain. Feels slightly distended. Had BM last night. Tried clears last night and then got nauseated again. Denies f/c/s, chest pain, sob, vomiting, abd pain. Back to NPO status. Review of Systems Review of Systems: All systems reviewed & are unremarkable except as noted in HPI & below Physical Exam Physical Exam: GEN: Thin, petite, F, NAD, A&O x3 HEENT: Normocephalic, atraumatic, conjunctivae moist, sclerae anicteric, mucous membranes moist. Lung: Clear to Auscultation bilaterally, no wheezes/rales/rhonchi Heart: Regular rate, regular rhythm, no murmurs, rubs, or gallops Abdomen: minimally distended, Soft, NT, +BS x 4 Extremities: No edema Skin: Warm, no rash, negative turgor. Results & Data Results & Data Vital Signs (Past 12 Hours) Vital Signs Temp Pulse Resp BP Pulse Ox O2 Del Method 01/11/23 07:06 36.5 C 70 16 122/84 95 Room Air Diagnostic Findings KUB X-Ray 01/11/23 11:25 KUB CLINICAL HISTORY: Small bowel obstruction. COMPARISON STUDY: CT of the abdomen and pelvis January 05, 2023 and KUB January 10, 2023. FINDINGS: There is suspected gaseous distention of the stomach. Moderate small bowel dilatation is again noted. The bowel loops measure up to 4.9 cm in caliber. Sensitivity for detection of free air is diminished on this supine exam but none is identified. IMPRESSION: 1. Findings consistent with a persistent small bowel obstruction. 2. Suspected gastric distention. ACT 112: Negative or not required by law. Electronically signed by: Maksim Starks M.D. 01/11/2023 2:05 PM
[2023-01-12] MEDS: AMPICILLIN/SULBACTAM SOD 3,000 MG in 0.9 % SODIUM CHLORIDE 100 ML IV SCH ×4 (04:14→22:24)
[2023-01-12] MEDS: CARBIDOPA/LEVODOPA 25/100MG TAB PO SCH ×3 (07:33→20:37)
[2023-01-12] MEDS: MEMANTINE HCL 5 MG TAB PO SCH ×2 (07:34→20:37)
[2023-01-12] MEDS: ENOXAPARIN INJ 40 MG/0.4 ML SYR SQ SCH (07:35)
[2023-01-12] MEDS: MULTIVITAMIN TAB PO SCH (07:35)
[2023-01-12] MEDS: lisinopril 5 MG TAB PO SCH (07:35)
[2023-01-12] MEDS: PANTOprazole 40 MG in SYRINGE 0 ML IV SCH ×2 (07:36→20:37)
[2023-01-12] MEDS ORDERED: bisacodyL 10 MG SUPP PR STA (07:55)
[2023-01-12] MEDS: POLYETHYLENE (MIRALAX) 17 GM PACK PO PRN (08:32)
--- NOTE | 2023-01-12 08:55 | Surgery Progress Note ---
Date of Service January 12, 2023 Assessment & Plan (1) Small bowel obstruction: Plan: 72 year-old female with history of esophageal hernia repair and tubal ligation with prior SBO treated conservatively 3-4 years ago presented to emergency department with increasing abdominal pain and nausea that started yesterday morning. Passing flatus. Mild leukocytosis this am. Afebrile and hemodynamically stable. CT scan with high grade SBO with transition in the midline of pelvis. Abdomen is soft, nondistended, mildly tender in mid lower abdomen. 01/10/2023 afebrile, vss no abdominal pain, no n,v with NGT removed passing gas KUB with decreased small bowel distention, formed stool in low sigmoid/rectum Plan: Dulcolax suppository now Miralax now okay for ice chips and sips of water, possibly clears this evening encourage ambulation to increase GI motility continue medical management Discussed with Dr. Quinn who has seen patient, agrees with above 01/11/2023 11:28 AM, DR. Quinn F/U SBO pt passed gas and BM, doing better, clear diet, KUB will F/U 01/12/2023 8:58 AM, DR. Quinn F/U SBO pt passed gas and BM, some nausea. no abdominal pain. KUB- SBO, based on pt is still has SBO, I recommend do exploratory laparostomy, possible bowel resection, D/W benefits, risks and alternatives of the surgery, but pt wants to wait. pt dose not want surgery now. dulcolax 10 mg MD, miralax today. repeat , labs tomorrow. KUB will F/U Admission and Anticipated Discharge Date Admission Date: January 06, 2023 Supervising Physician Co-Signing Physician Notes Attending Addendum: care coordinated with CHRISTINA Scott please refer to her notes for full details, I agree with her notes patient seen and examined, records reviewed by myself as well diagnoses and plan of care as per CHRISTINA Carpenter MD Subjective Pt seen and examined in room 383-2. Follow up SBO. Denies abd pain. Feels slightly distended. Had BM last night. Tried clears last night and then got nauseated again. Denies f/c/s, chest pain, sob, vomiting, abd pain. Back to NPO status. 01/12/2023 8:[address] Quinn F/U SBO, still pass gas. pt had BM 2 days ago, pt denies abdominal pain. some nausea, no vomiting. no fever. Physical Exam Constitutional: WD/WN, vitals as above Eyes: PERRL, conjunctivae normal, anicteric sclerae Neck: trachea midline, no thyromegaly Respiratory: normal respiratory effort, lungs clear to auscultation Gastrointestinal (Abdomen): soft, no significant tenderness, mild distend, BS +. Neurologic: patellar DTR's 2+ bilat, sensation intact Psychiatric: A+Ox3, euthymic affect Results & Data Vital Signs (Past 12 Hours) Vital Signs Temp Pulse Resp BP Pulse Ox O2 Del Method 01/12/23 05:46 36.5 C 98 H 16 136/83 95 Room Air 01/11/23 21:40 Room Air 01/11/23 21:25 36.4 C L 82 18 135/81 93 Room Air
[2023-01-12 09:28] LABS: BUN Creatinine Ratio 21.5 (10-20); Calcium 8.5 mg/dl (8.6-10.3); Creatinine Clr Calc Pharmacy 45.5 ml/min; Est GFR (African American) 70.2 ml/min; Est GFR (Non-African American) 60.5 ml/min; Magnesium 2.1 mg/dl (1.7-2.4); Potassium 3.4 mmol/L (3.5-5.1)
--- NOTE | 2023-01-12 10:00 | XRay Report ---
KUB HISTORY: Generalized abdominal pain sbo COMPARISON: KUB 01/11/2023, CT 01/05/2023 FINDINGS: Persistent distention of the stomach with mildly improved small bowel distention. No renal calculi. No ureteral calculi. No pneumoperitoneum or pneumatosis. Small pleural effusions. No fractu re. IMPRESSION: Persistent gaseous distention of the stomach with mildly decreased small bowel distention suggestive of obstruction. Continued follow-up recommended. ACT 112: Negative or not required by law. The above report was generated using voice recognition software. It may contain grammatical, syntax o r spelling errors. Electronically signed by: Natalio Saavedra M.D. 01/12/2023 9:59 AM
[2023-01-12] MEDS ORDERED: POTASSIUM CHLORIDE 20 MEQ in D5W AND NSS 1,000 ML IV SCH (11:00)
[2023-01-12] MEDS: D5W AND NSS 1,000 ML IV SCH (11:01)
[2023-01-12] MEDS: POTASSIUM CHLORIDE / WTR 10 MEQ/100 ML PLCT IV SCH ×2 (11:56→12:51)
--- NOTE | 2023-01-12 14:13 | Hospitalist Progress Note ---
Date of Service January 12, 2023 Assessment & Plan (1) Small bowel obstruction: Plan: 72-year-old female past medical significant for hypertension, Parkinson disease history of bowel obstruction in the past presents with abdominal pain and found to have a high-grade small bowel obstruction. SMALL BOWEL OBSTRUCTION HIGH-GRADE Transition point at mid pelvis General surgery consulted Continue with conservative management approach at this time-bowel rest, IV fluids PPI BID Pt diet was advanced to clears 01/10 evening, developed nausea now back to NPO with sips/chips repeat KUB today: persistent SBO appreciate Gen surg recs - recommending exploratory laparotomy, pt declining at this time wishing to continue conservative tx she is starting to have bowel motility Biscodyl suppository x 1 given POSSIBLE ACUTE SINUSITIS Symptoms improving Continue Unasyn IV day #5 Hypokalemia will give 10meq KCL x 2 also incorporate KCL into IVF HYPERTENSION Continue home lisinopril Monitor closely PARKINSON'S DISEASE Continue home carbidopa levodopa DVT prophylaxis Lovenox Disposition PT and OT evaluation Usual lives at home with her family FULL CODE Pt was seen and examined in collaboration with Dr. Hernandez, please see addendum A total of 45 was spent coordinating, documenting, and providing care for this patient excluding time spent in the performance of separately billed services. This included personally viewing all current laboratories and imaging studies, medication reconciliation, outpatient chart review, and discussion with specialists. (2) HTN (hypertension): (3) Parkinson disease: Admission and Anticipated Discharge Date Admission Date: January 06, 2023 Supervising Physician Co-Signing Physician Notes Pt seen and examined by me, care coordinated w/ Yahaira Scott PA-C, pls refer to her note above for further detail. Today pt tells me she is not passing flatus today or overnight, also no BM. However denies abd. pain. Also no nausea or vomiting. Yesterday not doing well after trying clear liquid diet. Today, surgery service is recommending ex lap, pt declines and wants to continue w/ conservative management. Potassium replaced. IVF. Cont. to closely monitor. Plan as above. MD Mary Subjective Pt seen and examined in room 383-2. Follow up SBO. States she is passing flatus. Was told she may require surgery and she does not want to pursue surgery at this time. It took to long to recover from last surgery. She denies abd pain, f/c/s, chest pain, sob, n/v. Remains NPO on IVF. Is going to receive suppository. Review of Systems Review of Systems: All systems reviewed & are unremarkable except as noted in HPI & below Physical Exam Physical Exam: GEN: Thin, petite, F, NAD, A&O x3 HEENT: Normocephalic, atraumatic, conjunctivae moist, sclerae anicteric, mucous membranes moist. Lung: Clear to Auscultation bilaterally, no wheezes/rales/rhonchi Heart: Regular rate, regular rhythm, no murmurs, rubs, or gallops Abdomen: minimally distended, Soft, NT, +BS x 4 Extremities: No edema Skin: Warm, no rash, negative turgor. Results & Data Results & Data Vital Signs (Past 12 Hours) Vital Signs Temp Pulse Resp BP Pulse Ox O2 Del Method 01/12/23 05:46 36.5 C 98 H 16 136/83 95 Room Air Laboratory Results BMP 01/12/23 08:33 Sodium 143 Potassium 3.4 L Chloride 112 H Carbon Dioxide 25 BUN 20 Creatinine 0.93 Glucose 118 H Calcium 8.5 L Diagnostic Findings KUB X-Ray 01/12/23 08:55 KUB HISTORY: Generalized abdominal pain sbo COMPARISON: KUB 01/11/2023, CT 01/05/2023 FINDINGS: Persistent distention of the stomach with mildly improved small bowel distention. No renal calculi. No ureteral calculi. No pneumoperitoneum or pneumatosis. Small pleural effusions. No fracture. IMPRESSION: Persistent gaseous distention of the stomach with mildly decreased small bowel distention suggestive of obstruction. Continued follow-up recommended. ACT 112: Negative or not required by law. The above report was generated using voice recognition software. It may contain grammatical, syntax or spelling errors. Electronically signed by: Natalio Saavedra M.D. 01/12/2023 9:59 AM Medications Administered Current Inpatient Medications Acetaminophen (Acetaminophen 325 Mg Tab) 650 mg PO Q4H PRN PRN Reason: FEVER OR PAIN Stop: 02/08/23 15:38 Last Admin: 01/09/23 15:45 Dose: 650 mg Carbidopa/Levodopa (Carbidopa/Levodopa 25/100mg Tab) 1.5 tab PO TID DONALD Stop: 02/05/23 08:59 Last Admin: 01/12/23 13:55 Dose: 1.5 tab Enoxaparin Sodium (Enoxaparin Inj 40 Mg/0.4 Ml Syr) 40 mg SQ Q24H DONLAD Stop: 02/05/23 08:59 Last Admin: 01/12/23 07:35 Dose: 40 mg Hydromorphone HCl (Hydromorphone Inj 0.5 Mg/0.5 Ml Syr) 0.5 mg IV Q4H PRN PRN Reason: Pain Stop: 01/20/23 01:29 Last Admin: 01/06/23 08:17 Dose: 0.5 mg Pantoprazole Sodium 40 mg/ (Syringe) 10 mls @ 5 mls/min IV BID DONALD Stop: 02/07/23 17:19 Last Admin: 01/12/23 07:36 Dose: 5 mls/min Ampicillin Sodium/Sulbactam Sodium 3,000 mg/ Sodium Chloride 108 mls @ 200 mls/hr IV Q6H [facility]; Protocol Stop: 01/19/23 09:59 Last Infusion: 01/12/23 10:00 Dose: Infused Promethazine HCl 6.25 mg/ (Sodium Chloride) 50.25 mls @ 201 mls/hr IV Q6H PRN PRN Reason: Nausea And Vomiting Stop: 02/10/23 01:29 Last Infusion: 01/11/23 02:27 Dose: Infused Potassium Chloride/Dextrose/Sod Cl (D5nss + 20meq Kcl) 20 meq in 1,000 mls @ 80 mls/hr IV .[id number] [facility] Stop: 02/05/23 10:59 Lisinopril (Lisinopril 5 Mg Tab) 5 mg PO DAILY DONALD Stop: 02/05/23 08:59 Last Admin: 01/12/23 07:35 Dose: 5 mg Memantine (Memantine Hcl 5 Mg Tab) 5 mg PO BID [facility] Stop: 02/05/23 08:59 Last Admin: 01/12/23 07:34 Dose: 5 mg Multivitamins (Multivitamin Tab) 1 tab PO QAM [facility] Stop: 02/05/23 08:59 Last Admin: 01/12/23 07:35 Dose: 1 tab Ondansetron HCl (Ondansetron Inj 2 Mg/Ml 2 Ml Vial) 4 mg IV Q6H PRN PRN Reason: Nausea Stop: 02/05/23 01:29 Last Admin: 01/10/23 21:20 Dose: 4 mg Polyethylene Glycol (Polyethylene (Miralax) 17 Gm Pack) 17 gm PO DAILY PRN PRN Reason: Constipation Stop: 02/11/23 07:55 Last Admin: 01/12/23 08:32 Dose: 17 gm
[2023-01-12] MEDS: D5NSS + 20MEQ KCL 20 MEQ/1,000 ML BAG IV SCH (15:47)
[2023-01-12] MEDS: ACETAMINOPHEN 325 MG TAB PO PRN (17:34)
[2023-01-12] MEDS ORDERED: Nursing to Pharmacy Communication SCH (20:45)
[2023-01-13] MEDS: AMPICILLIN/SULBACTAM SOD 3,000 MG in 0.9 % SODIUM CHLORIDE 100 ML IV SCH ×4 (04:40→21:32)
[2023-01-13] MEDS: D5NSS + 20MEQ KCL 20 MEQ/1,000 ML BAG IV SCH ×2 (05:10→17:05)
[2023-01-13] MEDS: MEMANTINE HCL 5 MG TAB PO SCH ×2 (08:08→21:32)
[2023-01-13] MEDS: lisinopril 5 MG TAB PO SCH (08:09)
[2023-01-13] MEDS: CARBIDOPA/LEVODOPA 25/100MG TAB PO SCH ×3 (08:09→21:32)
[2023-01-13] MEDS: MULTIVITAMIN TAB PO SCH (08:09)
[2023-01-13] MEDS: PANTOprazole 40 MG in SYRINGE 0 ML IV SCH ×2 (08:09→21:32)
[2023-01-13] MEDS: ENOXAPARIN INJ 40 MG/0.4 ML SYR SQ SCH (08:17)
[2023-01-13 08:29] LABS: Hematocrit (blood only) 37.2 % (37.0-47.0); Hemoglobin 12.2 g/dl (12.0-16.0); Mean Corpuscular Hemoglobin 30.5 pg (25.0-34.0); Mean Corpuscular Hgb Conc 32.8 g/dL (32.0-36.0); Mean Platelet Volume 9.4 fL (9.4-12.4); Platelet Count 203 K/uL (130-400); RDW Coefficient of Variation 13.4 % (11.5-14.5); RDW Standard Deviation 45.9 fL (36.4-46.3); White Blood Count 5.77 K/ul (4.8-10.8)
[2023-01-13 09:06] LABS: BUN Creatinine Ratio 18.2 (10-20); Calcium 8.4 mg/dl (8.6-10.3); Creatinine Clr Calc Pharmacy 48.1 ml/min; Est GFR (Non-African American) 64.7 ml/min; Magnesium 1.9 mg/dl (1.7-2.4); Potassium 3.6 mmol/L (3.5-5.1)
--- NOTE | 2023-01-13 11:48 | Hospitalist Progress Note ---
Date of Service January 13, 2023 Assessment & Plan (1) Small bowel obstruction: Plan: 72-year-old female past medical significant for hypertension, Parkinson disease history of bowel obstruction in the past presents with abdominal pain and found to have a high-grade small bowel obstruction. SMALL BOWEL OBSTRUCTION HIGH-GRADE Transition point at mid pelvis General surgery consulted Continue with conservative management approach at this time-bowel rest, IV fluids PPI BID Pt diet was advanced to clears 01/10 evening, developed nausea now back to NPO with sips/chips repeat KUB : persistent SBO appreciate Gen surg recs - recommending exploratory laparotomy, pt declining at this time wishing to continue conservative tx she is starting to have bowel motility Biscodyl suppository x 1 given - had a very small BM yesterday (01/12/23) No abd. pain right now repeat KUB ordered POSSIBLE ACUTE SINUSITIS Symptoms improving Continue Unasyn IV day #6 Hypokalemia replace and monitor HYPERTENSION Continue home lisinopril Monitor closely PARKINSON'S DISEASE Continue home carbidopa levodopa DVT prophylaxis Lovenox Disposition PT and OT evaluation Usually lives at home with her family FULL CODE (2) HTN (hypertension): (3) Parkinson disease: Admission and Anticipated Discharge Date Admission Date: January 06, 2023 Subjective Pt seen and examined in room 383-2. Follow up SBO. Pt says she passed small BM after suppository yesterday Denies abd. pain Yesterday surgery offered surgical treatment and pt declined. She tells me today she does not want surgery. No fever, chills, chest pain, shortness of breath replace K, Ordered KUB Surgery following Review of Systems Review of Systems: All systems reviewed & are unremarkable except as noted in Subjective Physical Exam Physical Exam: GEN: Thin, petite, F, NAD, A&O x3 HEENT: Normocephalic, atraumatic, conjunctivae moist, sclerae anicteric, mucous membranes moist. Lung: Clear to Auscultation bilaterally, no wheezes/rales/rhonchi Heart: Regular rate, regular rhythm, no murmurs Abdomen: minimally distended, NT, +BS x 4 Extremities: No edema Skin: Warm, no rash Results & Data Results & Data Vital Signs (Past 12 Hours) Vital Signs Temp Pulse Resp BP Pulse Ox O2 Del Method 01/13/23 07:13 36.6 C 82 18 121/79 95 Room Air Laboratory Results 01/13/23 01/13/23 Range/Units 07:18 07:18 WBC 5.77 (4.8-10.8) K/ul RBC 4.00 L (4.20-5.40) M/uL Hgb 12.2 (12.0-16.0) g/dl Hct 37.2 (37.0-47.0) % MCV 93.0 (80.0-100.0) fL MCH 30.5 (25.0-34.0) pg MCHC 32.8 (32.0-36.0) g/dL RDW Std Deviation 45.9 (36.4-46.3) fL RDW Coeff of Brandee 13.4 (11.5-14.5) % Plt Count 203 (130-400) K/uL MPV 9.4 (9.4-12.4) fL Sodium 141 (136-145) mmol/L Potassium 3.6 (3.5-5.1) mmol/L Chloride 112 H (98-107) mmol/L Carbon Dioxide 23 (21-32) mmol/L Anion Gap 6 (3-11) BUN 16 (6-23) mg/dl Creatinine 0.88 (0.6-1.2) mg/dl Est Cr Clr Drug Dosing 48.1 ml/min Est GFR ( Amer) 75.0 ml/min Est GFR (Non-Af Amer) 64.7 ml/min BUN/Creatinine Ratio 18.2 (10-20) Glucose 118 H (70-99(Fasting)) mg/dl Calcium 8.4 L (8.6-10.3) mg/dl Magnesium 1.9 (1.7-2.4) mg/dl Medications Administered Current Inpatient Medications Acetaminophen (Acetaminophen 325 Mg Tab) 650 mg PO Q4H PRN PRN Reason: FEVER OR PAIN Stop: 02/08/23 15:38 Last Admin: 01/12/23 17:34 Dose: 650 mg Carbidopa/Levodopa (Carbidopa/Levodopa 25/100mg Tab) 1.5 tab PO TID DONALD Stop: 02/05/23 08:59 Last Admin: 01/13/23 08:09 Dose: 1.5 tab Enoxaparin Sodium (Enoxaparin Inj 40 Mg/0.4 Ml Syr) 40 mg SQ Q24H [facility] Stop: 02/05/23 08:59 Last Admin: 01/13/23 08:17 Dose: 40 mg Hydromorphone HCl (Hydromorphone Inj 0.5 Mg/0.5 Ml Syr) 0.5 mg IV Q4H PRN PRN Reason: Pain Stop: 01/20/23 01:29 Last Admin: 01/06/23 08:17 Dose: 0.5 mg Pantoprazole Sodium 40 mg/ (Syringe) 10 mls @ 5 mls/min IV BID DONALD Stop: 02/07/23 17:19 Last Admin: 01/13/23 08:09 Dose: 5 mls/min Ampicillin Sodium/Sulbactam Sodium 3,000 mg/ Sodium Chloride 108 mls @ 200 mls/hr IV Q6H [facility]; Protocol Stop: 01/19/23 09:59 Last Infusion: 01/13/23 09:53 Dose: Infused Promethazine HCl 6.25 mg/ (Sodium Chloride) 50.25 mls @ 201 mls/hr IV Q6H PRN PRN Reason: Nausea And Vomiting Stop: 02/10/23 01:29 Last Infusion: 01/11/23 02:27 Dose: Infused Potassium Chloride/Dextrose/Sod Cl (D5nss + 20meq Kcl) 20 meq in 1,000 mls @ 80 mls/hr IV .[id number] [facility] Stop: 02/05/23 10:59 Last Admin: 01/13/23 05:10 Dose: 80 mls/hr Potassium Chloride (K [place] / Wtr) 10 meq in 100 mls @ 100 mls/hr IV Q1H [facility] Stop: 01/13/23 13:59 Lisinopril (Lisinopril 5 Mg Tab) 5 mg PO DAILY DONALD Stop: 02/05/23 08:59 Last Admin: 01/13/23 08:09 Dose: 5 mg Memantine (Memantine Hcl 5 Mg Tab) 5 mg PO BID DONALD Stop: 02/05/23 08:59 Last Admin: 01/13/23 08:08 Dose: 5 mg Multivitamins (Multivitamin Tab) 1 tab PO QAM DONALD Stop: 02/05/23 08:59 Last Admin: 01/13/23 08:09 Dose: 1 tab Ondansetron HCl (Ondansetron Inj 2 Mg/Ml 2 Ml Vial) 4 mg IV Q6H PRN PRN Reason: Nausea Stop: 02/05/23 01:29 Last Admin: 01/10/23 21:20 Dose: 4 mg Polyethylene Glycol (Polyethylene (Miralax) 17 Gm Pack) 17 gm PO DAILY PRN PRN Reason: Constipation Stop: 02/11/23 07:55 Last Admin: 01/12/23 08:32 Dose: 17 gm
[2023-01-13] MEDS ORDERED: bisacodyL 10 MG SUPP PR STA (12:22)
[2023-01-13] MEDS ORDERED: SOD PHOSPHATE/SOD BIPHOSPHATE ENEMA 132 ML BTL PR STA (12:28)
--- NOTE | 2023-01-13 12:37 | XRay Report ---
KUB CLINICAL HISTORY: Small bowel obstruction. FINDINGS: An AP, portable, supine abdominal radiograph is compared to study 01/12/2023 and correlated w ith abdominal CT dated 01/05/2023. There is persistent gaseous distention of the stomach and small bow el loops indicating persistent obstruction. No evidence of intraperitoneal free air is seen on this s upine image. There are no abnormal abdominal calcifications. Phleboliths are seen in the pelvis. The skeletal structures are osteopenic and appear intact. There is lumbosacral spondylosis. IMPRESSION: Persistent small bowel obstruction. Electronically signed by: Franky Williamson M.D. 01/13/2023 12:36 PM
[2023-01-13] MEDS: POTASSIUM CHLORIDE / WTR 10 MEQ/100 ML PLCT IV SCH ×2 (12:50→14:11)
[2023-01-13] MEDS: POLYETHYLENE (MIRALAX) 17 GM PACK PO PRN (13:14)
--- NOTE | 2023-01-13 15:37 | Surgery Progress Note ---
Date of Service January 13, 2023 Assessment & Plan (1) Small bowel obstruction: Plan: 72 year-old female with history of esophageal hernia repair and tubal ligation with prior SBO treated conservatively 3-4 years ago presented to emergency department with increasing abdominal pain and nausea that started yesterday morning. Passing flatus. Mild leukocytosis this am. Afebrile and hemodynamically stable. CT scan with high grade SBO with transition in the midline of pelvis. Abdomen is soft, nondistended, mildly tender in mid lower abdomen. 01/10/2023 afebrile, vss no abdominal pain, no n,v with NGT removed passing gas KUB with decreased small bowel distention, formed stool in low sigmoid/rectum Plan: Dulcolax suppository now Miralax now okay for ice chips and sips of water, possibly clears this evening encourage ambulation to increase GI motility continue medical management Discussed with Dr. Quinn who has seen patient, agrees with above 01/11/2023 11:28 AM, DR. Quinn F/U SBO pt passed gas and BM, doing better, clear diet, KUB will F/U 01/12/2023 8:58 AM, DR. Quinn F/U SBO pt passed gas and BM, some nausea. no abdominal pain. KUB- SBO, based on pt is still has SBO, I recommend do exploratory laparostomy, possible bowel resection, D/W benefits, risks and alternatives of the surgery, but pt wants to wait. pt dose not want surgery now. dulcolax 10 mg CA, miralax today. repeat , labs tomorrow. KUB will F/U 01/13/2023 8:58 AM, DR. Quinn F/U SBO, pt's daughter at bedside, pt passed gas,no BM today, some nausea. no abdominal pain. KUB- SBO, based on pt is still has SBO, I recommend do exploratory laparostomy, possible bowel resection, D/W benefits, risks and alternatives of the surgery, but pt and her daughter want to wait. try NG tube first. last time pt had NG tube in for 3- 4 days for treating her SBO 3-4 years ago. pt dose not want surgery now.fleet enema today. repeat labs tomorrow. KUB, may need surgery treatment if pt is not getting better in 1-2 days, pt and her daughter understood, I answered all questions. I placed NG tube suction yellow fluid right way. KUB confirm NG tube. will F/U, Admission and Anticipated Discharge Date Admission Date: January 06, 2023 Supervising Physician Co-Signing Physician Notes Pt seen and examined by me, care coordinated w/ B. SEFERINO Scott, pls refer to her note above for further detail. Today pt tells me she is not passing flatus today or overnight, also no BM. However denies abd. pain. Also no nausea or vomiting. Yesterday not doing well after trying clear liquid diet. Today, surgery service is recommending ex lap, pt declines and wants to continue w/ conservative management. Potassium replaced. IVF. Cont. to closely monitor. Plan as above. MD Mary Subjective Pt seen and examined in room 383-2. Follow up SBO. Pt says she passed small BM after suppository yesterday Denies abd. pain Yesterday surgery offered surgical treatment and pt declined. She tells me today she does not want surgery. No fever, chills, chest pain, shortness of breath replace K, Ordered KUB Surgery following 01/13/2023 3:[address] Quinn F/U SBO, still pass flatus, passed small amount stool yesterday, pt denies abdominal pain, some nausea, no vomiting, no fever. Physical Exam Constitutional: WD/WN, vitals as above Eyes: PERRL, conjunctivae normal, anicteric sclerae Neck: trachea midline, no thyromegaly Respiratory: normal respiratory effort, lungs clear to auscultation Gastrointestinal (Abdomen): soft, mild distend, no tenderness, BS +. Neurologic: patellar DTR's 2+ bilat, sensation intact Psychiatric: A+Ox3, euthymic affect Results & Data Vital Signs (Past 12 Hours) Vital Signs Temp Pulse Resp BP Pulse Ox O2 Del Method 01/13/23 07:13 36.6 C 82 18 121/79 95 Room Air Laboratory Results Abnormal lab results 01/13/23 01/13/23 Range/Units 07:18 07:18 RBC 4.00 L (4.20-5.40) M/uL Chloride 112 H (98-107) mmol/L Glucose 118 H (70-99(Fasting)) mg/dl Calcium 8.4 L (8.6-10.3) mg/dl Diagnostic Findings KUB CLINICAL HISTORY: Small bowel obstruction. FINDINGS: An AP, portable, supine abdominal radiograph is compared to study 01/12/2023 and correlated with abdominal CT dated 01/05/2023. There is persistent gaseous distention of the stomach and small bowel loops indicating persistent obstruction. No evidence of intraperitoneal free air is seen on this supine image. There are no abnormal abdominal calcifications. Phleboliths are seen in the pelvis. The skeletal structures are osteopenic and appear intact. There is lumbosacral spondylosis. IMPRESSION: Persistent small bowel obstruction.
--- NOTE | 2023-01-13 16:39 | XRay Report ---
KUB CLINICAL HISTORY: confirm NG placement COMPARISON STUDY: CT of the abdomen pelvis January 05, 2023. KUB January 13, 2023 at 12:04 PM. FINDINGS: The tip of the nasogastric tube projects over the distal body of the stomach. Small bilater al pleural effusions with bibasilar opacities are present. IMPRESSION: Tip of nasogastric tube projects over the distal body of the stomach. ACT 112: Negative or not required by law. Electronically signed by: Maksim Starks M.D. 01/13/2023 4:37 PM
[2023-01-13] MEDS ORDERED: PANTOprazole 40 MG in SYRINGE 0 ML IV SCH (21:00)
[2023-01-14] MEDS: AMPICILLIN/SULBACTAM SOD 3,000 MG in 0.9 % SODIUM CHLORIDE 100 ML IV SCH ×3 (03:25→19:58)
[2023-01-14] MEDS: D5NSS + 20MEQ KCL 20 MEQ/1,000 ML BAG IV SCH (05:39)
[2023-01-14 07:07] LABS: Hemoglobin 10.6 g/dl (12.0-16.0); Mean Corpuscular Hemoglobin 30.7 pg (25.0-34.0); Mean Corpuscular Hgb Conc 32.1 g/dL (32.0-36.0); Mean Corpuscular Volume 95.7 fL (80.0-100.0); Mean Platelet Volume 9.1 fL (9.4-12.4); Platelet Count 198 K/uL (130-400); RDW Coefficient of Variation 13.6 % (11.5-14.5); RDW Standard Deviation 47.6 fL (36.4-46.3); Red Blood Count 3.45 M/uL (4.20-5.40); White Blood Count 11.24 K/ul (4.8-10.8)
--- NOTE | 2023-01-14 07:34 | Hospitalist Progress Note ---
Date of Service January 14, 2023 Assessment & Plan (1) Small bowel obstruction: Plan: 72-year-old female past medical significant for hypertension, Parkinson disease history of bowel obstruction in the past presents with abdominal pain and found to have a high-grade small bowel obstruction. SMALL BOWEL OBSTRUCTION HIGH-GRADE Transition point at mid pelvis General surgery consulted Continue with conservative management approach at this time-bowel rest, IV fluids PPI BID Pt diet was advanced to clears 01/10 evening, developed nausea now back to NPO with sips/chips repeat KUB : persistent SBO appreciate Gen surg recs - recommending exploratory laparotomy, pt declining at this time wishing to continue conservative tx she is starting to have bowel motility Biscodyl suppository x 1 given - had a very small BM on (01/12/23) No abd. pain right now 01/14 NGT placed yesterday and surgery recommended. Pt is now considering surgery. Plan for OR later today. POSSIBLE ACUTE SINUSITIS Symptoms improving Continue Unasyn IV day #7 Hypokalemia replace and monitor HYPERTENSION Continue home lisinopril Monitor closely PARKINSON'S DISEASE Continue home carbidopa levodopa DVT prophylaxis Lovenox Disposition PT and OT evaluation Usually lives at home with her family FULL CODE (2) HTN (hypertension): (3) Parkinson disease: Admission and Anticipated Discharge Date Admission Date: January 06, 2023 Subjective Pt seen and examined in room 383-2. Follow up SBO. She is now w/ NG tube and considering surgery as was recommended earlier denies abd. pain No fever, chills, chest pain, shortness of breath Surgery following closely - plan for OR Review of Systems Review of Systems: All systems reviewed & are unremarkable except as noted in Subjective Physical Exam Physical Exam: GEN: Thin, petite, F, NAD, A&O x3, NGT placed HEENT: Normocephalic, atraumatic, conjunctivae moist, sclerae anicteric, mucous membranes moist. Lung: Clear to Auscultation bilaterally, no wheezes/rales/rhonchi Heart: Regular rate, regular rhythm, no murmurs Abdomen: minimally distended, NT, +BS x 4 Extremities: No edema Skin: Warm, no rash Results & Data Results & Data Vital Signs (Past 12 Hours) Vital Signs Temp Pulse Resp BP Pulse Ox O2 Del Method O2 Flow Rate 01/13/23 20:47 37.0 C 99 H 18 121/66 95 Nasal Cannula 2 Laboratory Results 01/14/23 01/14/23 01/13/23 Range/Units 06:34 06:34 07:18 WBC 11.24 H (4.8-10.8) K/ul RBC 3.45 L (4.20-5.40) M/uL Hgb 10.6 L (12.0-16.0) g/dl Hct 33.0 L (37.0-47.0) % MCV 95.7 (80.0-100.0) fL MCH 30.7 (25.0-34.0) pg MCHC 32.1 (32.0-36.0) g/dL RDW Std Deviation 47.6 H (36.4-46.3) fL RDW Coeff of Brandee 13.6 (11.5-14.5) % Plt Count 198 (130-400) K/uL MPV 9.1 L (9.4-12.4) fL Immature Gran % (Auto) 0.8 % Neut % (Auto) 86.0 % Lymph % (Auto) 8.0 % [place] % (Auto) 4.0 % Eos % (Auto) 0.8 % Baso % (Auto) 0.4 % Neut # (Auto) 9.66 H (1.40-6.50) K/uL Lymph # (Auto) 0.90 L (1.2-3.4) K/uL [place] # (Auto) 0.45 (0.11-0.59) K/uL Eos # (Auto) 0.09 (0-0.50) K/uL Baso # (Auto) 0.05 (0-0.2) K/uL Immature Gran # (Auto) 0.09 (0.01-0.20) K/uL RBC Morphology Unremarkable Sodium 142 141 (136-145) mmol/L Potassium 3.6 3.6 (3.5-5.1) mmol/L Chloride 116 H 112 H (98-107) mmol/L Carbon Dioxide 22 23 (21-32) mmol/L Anion Gap 4 6 (3-11) BUN 11 16 (6-23) mg/dl Creatinine 0.96 0.88 (0.6-1.2) mg/dl Est Cr Clr Drug Dosing 44.1 48.1 ml/min Est GFR ( Amer) 67.5 75.0 ml/min Est GFR (Non-Af Amer) 58.3 64.7 ml/min BUN/Creatinine Ratio 11.5 18.2 (10-20) Glucose 111 H 118 H (70-99(Fasting)) mg/dl Calcium 7.7 L 8.4 L (8.6-10.3) mg/dl Phosphorus 3.0 (2.5-4.9) mg/dl Magnesium 1.7 1.9 (1.7-2.4) mg/dl Total Bilirubin 0.5 (0.2-1.0) mg/dl AST 13 (13-39) U/L ALT 7 (7-52) U/L Alkaline Phosphatase 46 (34-104) U/L Total Protein 4.7 L (6.0-8.3) gm/dl Albumin 2.4 L (3.4-5.0) gm/dl Globulin 2.3 L (2.5-4.0) gm/dl Albumin/Globulin Ratio 1.0 (0.9-2) Medications Administered Current Inpatient Medications Acetaminophen (Acetaminophen 325 Mg Tab) 650 mg PO Q4H PRN PRN Reason: FEVER OR PAIN Stop: 02/08/23 15:38 Last Admin: 01/12/23 17:34 Dose: 650 mg Carbidopa/Levodopa (Carbidopa/Levodopa 25/100mg Tab) 1.5 tab PO TID DONALD Stop: 02/05/23 08:59 Last Admin: 01/13/23 21:32 Dose: 1.5 tab Enoxaparin Sodium (Enoxaparin Inj 40 Mg/0.4 Ml Syr) 40 mg SQ Q24H DONALD Stop: 02/05/23 08:59 Last Admin: 01/13/23 08:17 Dose: 40 mg Hydromorphone HCl (Hydromorphone Inj 0.5 Mg/0.5 Ml Syr) 0.5 mg IV Q4H PRN PRN Reason: Pain Stop: 01/20/23 01:29 Last Admin: 01/06/23 08:17 Dose: 0.5 mg Pantoprazole Sodium 40 mg/ (Syringe) 10 mls @ 5 mls/min IV BID DONALD Stop: 02/07/23 17:19 Last Admin: 01/13/23 21:32 Dose: 5 mls/min Ampicillin Sodium/Sulbactam Sodium 3,000 mg/ Sodium Chloride 108 mls @ 200 mls/hr IV Q6H [facility]; Protocol Stop: 01/19/23 09:59 Last Infusion: 01/14/23 04:46 Dose: Infused Promethazine HCl 6.25 mg/ (Sodium Chloride) 50.25 mls @ 201 mls/hr IV Q6H PRN PRN Reason: Nausea And Vomiting Stop: 02/10/23 01:29 Last Infusion: 01/11/23 02:27 Dose: Infused Potassium Chloride/Dextrose/Sod Cl (D5nss + 20meq Kcl) 20 meq in 1,000 mls @ 80 mls/hr IV .[id number] [facility] Stop: 02/05/23 10:59 Last Admin: 01/14/23 05:39 Dose: 80 mls/hr Lisinopril (Lisinopril 5 Mg Tab) 5 mg PO DAILY [facility] Stop: 02/05/23 08:59 Last Admin: 01/13/23 08:09 Dose: 5 mg Memantine (Memantine Hcl 5 Mg Tab) 5 mg PO BID [facility] Stop: 02/05/23 08:59 Last Admin: 01/13/23 21:32 Dose: 5 mg Multivitamins (Multivitamin Tab) 1 tab PO QAM [facility] Stop: 02/05/23 08:59 Last Admin: 01/13/23 08:09 Dose: 1 tab Ondansetron HCl (Ondansetron Inj 2 Mg/Ml 2 Ml Vial) 4 mg IV Q6H PRN PRN Reason: Nausea Stop: 02/05/23 01:29 Last Admin: 01/10/23 21:20 Dose: 4 mg Polyethylene Glycol (Polyethylene (Miralax) 17 Gm Pack) 17 gm PO DAILY PRN PRN Reason: Constipation Stop: 02/11/23 07:55 Last Admin: 01/13/23 13:14 Dose: 17 gm
[2023-01-14 07:41] LABS: Basophils # (auto) 0.05 K/uL (0-0.2); Basophils % (auto) 0.4 %; Eosinophils # (auto) 0.09 K/uL (0-0.50); Eosinophils % (auto) 0.8 %; Immature Granulocytes # (auto) 0.09 K/uL (0.01-0.20); Immature Granulocytes % (auto) 0.8 %; Monocytes # (auto) 0.45 K/uL (0.11-0.59); Neutrophils # (auto) 9.66 K/uL (1.40-6.50); RBC Morphology Unremarkable
[2023-01-14 07:45] LABS: Albumin Level 2.4 gm/dl (3.4-5.0); BUN Creatinine Ratio 11.5 (10-20); Bilirubin,Total 0.5 mg/dl (0.2-1.0); Calcium 7.7 mg/dl (8.6-10.3); Creatinine Clr Calc Pharmacy 44.1 ml/min; Est GFR (African American) 67.5 ml/min; Est GFR (Non-African American) 58.3 ml/min; Globulin 2.3 gm/dl (2.5-4.0); Magnesium 1.7 mg/dl (1.7-2.4); Potassium 3.6 mmol/L (3.5-5.1); Total Protein 4.7 gm/dl (6.0-8.3)
[2023-01-14] MEDS: CARBIDOPA/LEVODOPA 25/100MG TAB PO SCH ×3 (08:43→20:57)
[2023-01-14] MEDS: PANTOprazole 40 MG in SYRINGE 0 ML IV SCH ×2 (08:44→20:57)
[2023-01-14] MEDS: MEMANTINE HCL 5 MG TAB PO SCH ×2 (08:44→20:57)
[2023-01-14] MEDS: lisinopril 5 MG TAB PO SCH (08:44)
[2023-01-14] MEDS: MULTIVITAMIN TAB PO SCH (08:44)
[2023-01-14] MEDS: ENOXAPARIN INJ 40 MG/0.4 ML SYR SQ SCH (08:45)
--- NOTE | 2023-01-14 08:51 | XRay Report ---
KUB CLINICAL HISTORY: Small bowel obstruction. COMPARISON STUDY: CT of the abdomen and pelvis January 05, 2023 and KUB January 13, 2023. FINDINGS: Small to moderate right and small left pleural effusions are present. There are bibasilar o pacities. Tip of nasogastric tube is within the distal body of the stomach. Multiple loops of mildly dilated small bowel are noted. Small bowel dilatation has mildly improved since prior KUB. IMPRESSION: 1. Slight improvement in small bowel dilatation. The findings favor a persistent, but slightly improv ed, small bowel obstruction. 2. Small to moderate right and small left pleural effusions. ACT 112: Negative or not required by law. Electronically signed by: Maksim Starks M.D. 01/14/2023 8:49 AM
[2023-01-14] MEDS: POTASSIUM CHLORIDE / WTR 10 MEQ/100 ML PLCT IV SCH ×2 (09:32→10:29)
--- NOTE | 2023-01-14 12:35 | Surgery Progress Note ---
Date of Service January 14, 2023 Assessment & Plan (1) Small bowel obstruction: Plan: 72 year-old female with history of esophageal hernia repair and tubal ligation with prior SBO treated conservatively 3-4 years ago presented to emergency department with increasing abdominal pain and nausea that started day prior. CT scan with high grade SBO with transition in the midline of pelvis. 01/14/2023: afebrile, mild leukocytosis of 11.24 today NGT with 5 liters output since placement yesterday KUB today showing persistent obstruction but mild improvement of small bowel dilatation no real return of bowel function yet has been essentially NPO for 8 days Plan: Will discuss with Dr. casanova, discussed briefly with patient again option of surgical intervention as she has not significantly improved in 8 days . Discussed surgery and expected hospital stay afterwards. She will likely need to start PPN as she has been npo for 8 days. will discuss with hospitalist team. Dr. Casanova to see patient early this afternoon and determine next steps keep npo continue NGT to LIS continue medical management 01/14/2023 2: 45 PM, Dr. Casanova based on pt's H/P, CT scan and KUB, failed conservative treatment for SBO. I recommend to do exploratory laparostomy, possible bowel resection or stoma, D/W benefits, risks and alternatives of the surgery, the risks - infection, bleeding, injury other organs, anastomotic leak, sepsis, NH, . pt understood, I also talked pt's daughter on the phone. they understood, they agreed with surgery. pt signed informed consent, I answered all questions. Admission and Anticipated Discharge Date Admission Date: January 06, 2023 Supervising Physician Co-Signing Physician Notes Pt seen and examined by me, care coordinated w/ Yahaira Scott PA-C, pls refer to her note above for further detail. Today pt tells me she is not passing flatus today or overnight, also no BM. However denies abd. pain. Also no nausea or vomiting. Yesterday not doing well after trying clear liquid diet. Today, surgery service is recommending ex lap, pt declines and wants to continue w/ conservative management. Potassium replaced. IVF. Cont. to closely monitor. Plan as above. MD Mary Subjective not having abdominal pain feeling okay no nausea or vomiting tolerating NGT so far, NG output 5000ml Not passing gas or bowel movement after enema yesterday , just some specks of stool within the enema Physical Exam Constitutional: WD/WN, vitals as above cooperative, comfortable and + lethargic; no acute distress and not diaphoretic Eyes: PERRL, conjunctivae normal, anicteric sclerae Neck: trachea midline, no thyromegaly Respiratory: normal respiratory effort, lungs clear to auscultation normal respiratory effort; no respiratory distress Gastrointestinal (Abdomen): Inspection/Auscultation: + abdomen distended (mild distention lower abdomen) and + abdominal surgical scar Percussion/Palpation: abdomen soft; abdomen nontender, no guarding and abdomen not rigid NGT with bilious/light brown output in cannister Skin: no rashes, warm and dry Neurologic: patellar DTR's 2+ bilat, sensation intact Psychiatric: A+Ox3, euthymic affect Orientation: alert Results & Data Vital Signs (Past 12 Hours) Vital Signs Temp Pulse Resp BP BP Pulse Ox O2 Del Method 01/14/23 09:00 109/71 01/14/23 07:26 37 C 79 18 99/62 L 95 Nasal Cannula O2 Flow Rate 01/14/23 09:00 01/14/23 07:26 2 Laboratory Results 01/14/23 01/14/23 Range/Units 06:34 06:34 WBC 11.24 H (4.8-10.8) K/ul RBC 3.45 L (4.20-5.40) M/uL Hgb 10.6 L (12.0-16.0) g/dl Hct 33.0 L (37.0-47.0) % MCV 95.7 (80.0-100.0) fL MCH 30.7 (25.0-34.0) pg MCHC 32.1 (32.0-36.0) g/dL RDW Std Deviation 47.6 H (36.4-46.3) fL RDW Coeff of Brandee 13.6 (11.5-14.5) % Plt Count 198 (130-400) K/uL MPV 9.1 L (9.4-12.4) fL Immature Gran % (Auto) 0.8 % Neut % (Auto) 86.0 % Lymph % (Auto) 8.0 % [place] % (Auto) 4.0 % Eos % (Auto) 0.8 % Baso % (Auto) 0.4 % Neut # (Auto) 9.66 H (1.40-6.50) K/uL Lymph # (Auto) 0.90 L (1.2-3.4) K/uL [place] # (Auto) 0.45 (0.11-0.59) K/uL Eos # (Auto) 0.09 (0-0.50) K/uL Baso # (Auto) 0.05 (0-0.2) K/uL Immature Gran # (Auto) 0.09 (0.01-0.20) K/uL RBC Morphology Unremarkable Sodium 142 (136-145) mmol/L Potassium 3.6 (3.5-5.1) mmol/L Chloride 116 H (98-107) mmol/L Carbon Dioxide 22 (21-32) mmol/L Anion Gap 4 (3-11) BUN 11 (6-23) mg/dl Creatinine 0.96 (0.6-1.2) mg/dl Est Cr Clr Drug Dosing 44.1 ml/min Est GFR ( Amer) 67.5 ml/min Est GFR (Non-Af Amer) 58.3 ml/min BUN/Creatinine Ratio 11.5 (10-20) Glucose 111 H (70-99(Fasting)) mg/dl Calcium 7.7 L (8.6-10.3) mg/dl Phosphorus 3.0 (2.5-4.9) mg/dl Magnesium 1.7 (1.7-2.4) mg/dl Total Bilirubin 0.5 (0.2-1.0) mg/dl AST 13 (13-39) U/L ALT 7 (7-52) U/L Alkaline Phosphatase 46 (34-104) U/L Total Protein 4.7 L (6.0-8.3) gm/dl Albumin 2.4 L (3.4-5.0) gm/dl Globulin 2.3 L (2.5-4.0) gm/dl Albumin/Globulin Ratio 1.0 (0.9-2) Diagnostic Findings KUB CLINICAL HISTORY: Small bowel obstruction. COMPARISON STUDY: CT of the abdomen and pelvis January 05, 2023 and KUB January 13, 2023. FINDINGS: Small to moderate right and small left pleural effusions are present. There are bibasilar opacities. Tip of nasogastric tube is within the distal body of the stomach. Multiple loops of mildly dilated small bowel are noted. Small bowel dilatation has mildly improved since prior KUB. IMPRESSION: 1. Slight improvement in small bowel dilatation. The findings favor a persistent, but slightly improved, small bowel obstruction. 2. Small to moderate right and small left pleural effusions.
[2023-01-14] MEDS ORDERED: ePHEDrine sulfate 50 MG/ML AMP IV PRN (14:36)
[2023-01-14] MEDS ORDERED: ONDANSETRON INJ 2 MG/ML 2 ML VIAL IV PRN (14:36)
[2023-01-14] MEDS ORDERED: ATROPINE SULFATE 0.1 MG/ML 10ML SYR IV PRN (14:36)
--- NOTE | 2023-01-14 14:38 | Anesthesiology Consultation ---
Date of Service January 14, 2023 Assessment & Plan (1) Encounter for pre-operative examination: Chart Review Chart Review: Acceptable Risk for Surgery and Patient NOT seen in Pre Admission Testing Consults Requested none History Surgery Operation Date: 01/14/23 14:05 Proposed Procedures p Exploratory Laparotomy, Possible Bowel Resection - Amina Quinn MD Height/Weight Height: 5 ft 4 in Weight: 54.295 kg Allergies Allergy/AdvReac Type Severity Reaction Status Date / Time No Known Allergies Allergy Unverified 01/05/23 20:17 Medications Home Medications Medication Instructions Recorded Confirmed Last Taken carbidopa 25 mg-levodopa 100 mg 1.5 tab PO TID 01/05/23 01/05/23 01/05/23 tablet lisinopril 5 mg tablet 5 mg PO DAILY 01/05/23 01/05/23 01/05/23 memantine 5 mg tablet 5 mg PO BID 01/05/23 01/05/23 01/05/23 multivitamin 1 tab PO DAILY 01/05/23 01/05/23 01/05/23 Active Medications Generic Name Dose Route Start Last Admin Trade Name Freq PRN Reason Stop Dose Admin Acetaminophen 650 mg 01/09/23 15:39 01/12/23 17:34 Acetaminophen 325 Mg Tab PO 02/08/23 15:38 650 mg Q4H PRN Administration FEVER OR PAIN Carbidopa/Levodopa 1.5 tab 01/06/23 09:00 01/14/23 14:19 Carbidopa/Levodopa 25/100mg Tab PO 02/05/23 08:59 1.5 tab TID DONALD Administration Enoxaparin Sodium 40 mg 01/06/23 09:00 01/14/23 08:45 Enoxaparin Inj 40 Mg/0.4 Ml Syr SQ 02/05/23 08:59 40 mg Q24H DONALD Administration Hydromorphone HCl 0.5 mg 01/06/23 01:30 01/06/23 08:17 Hydromorphone Inj 0.5 Mg/0.5 Ml Syr IV 01/20/23 01:29 0.5 mg Q4H PRN Administration Pain Pantoprazole Sodium 40 mg/ 10 mls @ 5 mls/min 01/08/23 17:20 01/14/23 08:44 Syringe IV 02/07/23 17:19 5 mls/min BID DONALD Administration Ampicillin Sodium/Sulbactam 108 mls @ 200 mls/hr 01/09/23 10:00 01/14/23 11:37 Sodium 3,000 mg/ Sodium IV 01/19/23 09:59 Infused Chloride Q6H DONALD Infusion Protocol Promethazine HCl 6.25 mg/ 50.25 mls @ 201 mls/hr 01/11/23 01:30 01/11/23 02:27 Sodium Chloride IV 02/10/23 01:29 Infused Q6H PRN Infusion Nausea And Vomiting Potassium Chloride/Dextrose/Sod Cl 20 meq in 1,000 mls @ 80 mls/hr 01/12/23 11:00 01/14/23 13:20 D5nss + 20meq Kcl IV 02/05/23 10:59 Infused .[id number] DONALD Infusion Lisinopril 5 mg 01/06/23 09:00 01/14/23 08:44 Lisinopril 5 Mg Tab PO 02/05/23 08:59 5 mg DAILY DONALD Administration Memantine 5 mg 01/06/23 09:00 01/14/23 08:44 Memantine Hcl 5 Mg Tab PO 02/05/23 08:59 5 mg BID DONALD Administration Multivitamins 1 tab 01/06/23 09:00 01/14/23 08:44 Multivitamin Tab PO 02/05/23 08:59 1 tab QAM DONALD Administration Ondansetron HCl 4 mg 01/06/23 01:30 01/10/23 21:20 Ondansetron Inj 2 Mg/Ml 2 Ml Vial IV 02/05/23 01:29 4 mg Q6H PRN Administration Nausea Polyethylene Glycol 17 gm 01/12/23 07:56 01/13/23 13:14 Polyethylene (Miralax) 17 Gm Pack PO 02/11/23 07:55 17 gm DAILY PRN Administration Constipation Past Medical History Medical History (Updated 01/14/23 @ 14:38 by Roberto South MD) Encounter for pre-operative examination HTN (hypertension) Parkinson disease SBO (small bowel obstruction) Past Surgical History Surgical History H/O hernia repair H/O tubal ligation Social History Smoking Status: Never smoker Hx Alcohol Use: No Hx Substance Use: No substance use type: does not use Physical Exam Vital Signs Last Vital Signs Temp 36.9 C 01/14/23 15:27 Pulse 94 H 01/14/23 15:27 Resp 21 01/14/23 15:27 BP 114/73 01/14/23 15:27 Pulse Ox 96 01/14/23 15:27 O2 Del Method Room Air 01/14/23 15:27 O2 Flow Rate 2 01/14/23 15:10 Testing Laboratory Results 01/14/23 06:34 01/14/23 06:34 Urine Color Dark Yellow 01/05/23 18:57 Urine Appearance Cloudy (Clear) A 01/05/23 18:57 Urine pH 5.5 (4.5-7.5) 01/05/23 18:57 Ur Specific [place] 1.036 (1.000-1.030) H 01/05/23 18:57 Urine Protein 1+ (Negative) H 01/05/23 18:57 Urine Glucose (UA) Negative (Negative) 01/05/23 18:57 Urine Ketones 1+ (Negative) H 01/05/23 18:57 Urine Nitrite Negative (Negative) 01/05/23 18:57 Ur Leukocyte Esterase Trace (Negative) H 01/05/23 18:57 Urine WBC (Auto) 5-10 /hpf (0-5) H 01/05/23 18:57 Urine RBC (Auto) 0-4 /hpf (0-4) 01/05/23 18:57 U Hyaline Cast (Auto) 1-5 /lpf (0-5) 01/05/23 18:57 U Epithel Cells (Auto) >30 /lpf (0-5) H 01/05/23 18:57 Urine Bacteria (Auto) Negative (Negative) 01/05/23 18:57 01/05/23 18:57 Urine Culture - Final Urine,Clean Catch Three types of organisms present, all high counts probable skin marquis. No further identifications or sensitivities to follow. Electrocardiogram Date: 01/06/23 DICTATED BY:Vimal Fajardo, Test Reason : Blood Pressure : / mmHG Vent. Rate : 094 BPM Atrial Rate : 094 BPM P-R Int : 130 ms QRS Dur : 076 ms QT Int : 328 ms P-R-T Axes : 057 011 058 degrees QTc Int : 410 ms Poor data quality, interpretation may be adversely affected Normal sinus rhythm Normal ECG No previous ECGs available Confirmed by Vimal Fajardo ([id number]) on 01/08/2023 10:48:32 AM
[2023-01-14] MEDS ORDERED: fentaNYL citrate PF 100 MCG/2 ML VIAL ONE ×2 (14:41→17:14)
[2023-01-14] MEDS ORDERED: BUPIVACAINE 0.5 % 5 MG/1 ML MPF 30ML VIAL ONE (14:46)
[2023-01-14] MEDS ORDERED: LIDOCAINE 1% LOCAL 20 ML VIAL ONE (14:46)
[2023-01-14] MEDS ORDERED: BACITRACIN OINT 14 GM TUBE ONE (14:46)
[2023-01-14] MEDS ORDERED: TPN/PPN CONSULT PHARMACY STA (15:19)
--- NOTE | 2023-01-14 15:26 | History & Physical Bridge Note ---
Date of Service January 14, 2023 History & Physical Bridge Note I have examined the patient, reviewed the History & Physical and in the interval since the performance of the History & Physical I have noted the following changes of clinical significance: no changes noted Supervising Physician Co-Signing Physician Notes Pt seen and examined by me, care coordinated w/ B. SEFERINO Scott, pls refer to her note above for further detail. Today pt tells me she is not passing flatus today or overnight, also no BM. However denies abd. pain. Also no nausea or vomiting. Yesterday not doing well after trying clear liquid diet. Today, surgery service is recommending ex lap, pt declines and wants to continue w/ conservative management. Potassium replaced. IVF. Cont. to closely monitor. Plan as above. MD Mary
[2023-01-14] MEDS ORDERED: ALBUMIN HUMAN 5% 12.5 GM/250 ML VIAL IV ONE (15:32)
[2023-01-14] MEDS ORDERED: TPN/PPN CONSULT PHARMACY PRN (16:03)
[2023-01-14] MEDS ORDERED: PHENYLEPHRINE HCL 10 MG/ML VIAL ONE (16:18)
[2023-01-14] MEDS ORDERED: SUGAMMADEX SODIUM 200 MG/2 ML VIAL IV ONE (16:19)
[2023-01-14] MEDS ORDERED: PROPOFOL IV EMULSION 10 MG/ML 20 ML VIAL IV ONE (16:19)
[2023-01-14] MEDS ORDERED: ONDANSETRON INJ 2 MG/ML 2 ML VIAL ONE (16:19)
[2023-01-14] MEDS ORDERED: ROCURONIUM BROMIDE 10 MG/ML 5 ML VIAL IV ONE ×5 (16:19→16:24)
[2023-01-14] MEDS ORDERED: DEXAMETHASONE SOD INJ 4 MG/ML VIAL ONE (16:19)
[2023-01-14] MEDS ORDERED: SUCCINYLCHOLINE CHLORIDE 20 MG/ML 10 ML VIAL IV ONE (16:19)
--- NOTE | 2023-01-14 18:11 | Post Operative Brief Note ---
Immediate Post Op Note v1 Date of Surgery January 14, 2023 Pre & Post Diagnosis Operation Date: 01/14/23 14:05 Pre-Op Diagnosis: Small bowel obstruction. Post-Op Diagnosis: Small bowel obstruction. I identified the patient and participated in the time-out.: Yes Procedure Operation Date: 01/14/23 14:05 Actual Procedures p Exploratory Laparotomy, Lysis of Adhesions- Amina Quinn MD Surgeon Amina Quinn MD Sponge Press Operator surgical garment fitter Estimated Blood Loss 20 Findings Consistent with Post-Op Diagnosis small bowel adhesion to prior mesh( patient had ventral hernia repair with mesh at [facility] 3-4 years ago. Fluids 900ml Drains Oscar Catheter and Other (Patient arrived into OR with NG tube to left nare.) Anesthesia Type General Complications none Disposition Accompanied Patient To Recovery: Yes
[2023-01-14] MEDS: fentaNYL citrate PF 100 MCG/2 ML VIAL IV PRN ×2 (18:44→18:49)
--- NOTE | 2023-01-14 18:49 | Operative Report ---
Post Operative Report Pre & Post Diagnosis Operation Date: 01/14/23 14:05 Pre-Op Diagnosis: Small bowel obstruction. Post-Op Diagnosis: Small bowel obstruction. I identified the patient and participated in the time-out.: Yes Procedure Operation Date: 01/14/23 14:05 Actual Procedures p Exploratory Laparotomy, Lysis of Adhesions - Amina Quinn MD Surgeon Amina Quinn MD Eeg Tech ophthalmic surgical assistant Estimated Blood Loss 20 Findings Consistent with Post-Op Diagnosis small bowel adhesion to mesh ( which patient had ventral hernia repair with mesh at [facility] 3-4 years ago. Fluids 900ml Specimens none Drains none Anesthesia Type General Complications none Disposition Accompanied Patient To Recovery: Yes Indications Patient is a 72 years old female who was admitted to the hospital for small bowel obstruction, patient has a failed of conservative treatment small bowel obstruction. I recommended to do exploratory laparotomy possible bowel resection possible stoma. I did talk to patient and patient daughter about the benefit the risk and alternatives of the procedure. I indicated the risks may include but not limited such as bleeding, infection, injury to other organs, anastomotic leak, myocardial infarction, sepsis. and . Patient and her daughter understand. they are agreed to proceed the procedure. Patient signed informed consent. I Answered all questions. Description of Procedure After the identified patient to verify procedure, we brought patient to the OR and put the patient on the supine position on the OR table. Patient received a SCD on bilateral leg to prevent DVT. Patient received a single on Unasyn IV for prophylactic antibiotic. Patient received general anesthesia without difficulty. The abdomen was pproped and dropped routine sterile fashion. A timeout, I made a midline incision. Open fascia opened peritoneum under direct vision getting inside the abdomen without difficulty. There are lot of the free flow around the abdominal cavity via suction all the fluid out. The fluid is clear color. Only found the patient had dilated the small bowel. Admitted follow-up dilated small bowel. We found the patient had the small bowel with the patient to the mesh on upper abdominal wall. Very intensive scar caused of small bowel obstruction. We use a sharp scissor to takedown the small bowel from the mesh. Lysis is some scar. Then we checked the small bowel once we take down small bowel. No ischemia sign on small bowel. With follow through the small bowel and the check large bowel and no ischemia signs on all bowels. once obstruction was released, small bowel was patent. Hemostasis was obtained. Now closed the abdominal fascia layer by using #1 PDS continuous running. Then closed subcutaneous therapy using 2-0 Vicryl continuous running. The injections of local anesthesia by using 1% lidocaine mixed with 0.5% Marcaine on the abdominal wall. Then we closed skin by using staplers. put dressing on. The patient tolerated procedure well all instrument needle sponge counts are correct x2 in the case. patient was transferred to recovery room in stable condition. after procedure I did talk to patient and patient family member about the OR finding procedure we did. They understand. I attest to the content of the Intraoperative Record and any orders documented therein. Any exceptions are noted below. Supervising Physician Co-Signing Physician Notes Pt seen and examined by me, care coordinated w/ B. SEFERINO Scott, pls refer to her note above for further detail. Today pt tells me she is not passing flatus today or overnight, also no BM. However denies abd. pain. Also no nausea or vomiting. Yesterday not doing well after trying clear liquid diet. Today, surgery service is recommending ex lap, pt declines and wants to continue w/ conservative management. Potassium replaced. IVF. Cont. to closely monitor. Plan as above. MD Mary
[2023-01-14] MEDS: HYDROmorphone INJ 1 MG/ML SYRINGE IV PRN ×4 (18:54→19:10)
--- NOTE | 2023-01-14 19:09 | Anesthesiology Progress Note ---
Date of Service January 14, 2023 Anesthesia Post Procedure Vital Signs Vital Signs: Temp Pulse Pulse Resp BP BP Pulse Ox 01/14/23 19:00 93 H 14 153/87 H 94 01/14/23 18:50 89 14 159/96 H 94 01/14/23 18:40 87 16 153/71 H 93 01/14/23 18:30 85 18 153/68 H 94 01/14/23 18:20 36.6 C 83 16 130/85 94 01/14/23 15:27 36.9 C 94 H 21 114/73 96 01/14/23 15:10 36.6 C 89 18 111/74 96 01/14/23 09:00 109/71 01/14/23 07:26 37 C 79 18 99/62 L 95 01/13/23 20:47 37.0 C 99 H 18 121/66 95 O2 Del Method O2 Flow Rate 01/14/23 19:00 Oxymask 5 01/14/23 18:50 Oxymask 8 01/14/23 18:40 Oxymask 10 01/14/23 18:30 Oxymask 10 01/14/23 18:20 Oxymask 10 01/14/23 15:27 Room Air 01/14/23 15:10 Nasal Cannula 2 01/14/23 09:00 01/14/23 07:26 Nasal Cannula 2 01/13/23 20:47 Nasal Cannula 2 Pain Intensity Bilateral Lower Abdomen: Pain Intensity: 10 Transfer of Care Handoff Completed per policy Notes Mental Status: alert / awake / arousable and participated in evaluation Patient Amnestic to Procedure: Yes Nausea / Vomiting: adequately controlled Pain: adequately controlled and improving with treatment Airway Patency, RR, SpO2: stable & adequate BP & HR: stable & adequate Hydration State: stable & adequate Anesthetic Complications: no major complications apparent and Pt Satisfied with anesthetic care
[2023-01-14] MEDS: ceFAZolin 1000MG 1,000 MG/7.5 ML SYR IV SCH (21:33)
[2023-01-15] MEDS: ceFAZolin 1000MG 1,000 MG/7.5 ML SYR IV SCH ×3 (04:47→20:37)
[2023-01-15] MEDS: D5NSS + 20MEQ KCL 20 MEQ/1,000 ML BAG IV SCH (05:52)
[2023-01-15 07:10] LABS: Hematocrit (blood only) 35.4 % (37.0-47.0); Hemoglobin 11.8 g/dl (12.0-16.0); Mean Corpuscular Hemoglobin 31.1 pg (25.0-34.0); Mean Corpuscular Hgb Conc 33.3 g/dL (32.0-36.0); Mean Corpuscular Volume 93.2 fL (80.0-100.0); Mean Platelet Volume 8.9 fL (9.4-12.4); Platelet Count 237 K/uL (130-400); RDW Coefficient of Variation 13.2 % (11.5-14.5); RDW Standard Deviation 45.1 fL (36.4-46.3); White Blood Count 16.57 K/ul (4.8-10.8)
[2023-01-15 07:47] LABS: BUN Creatinine Ratio 9.2 (10-20); Calcium 7.6 mg/dl (8.6-10.3); Creatinine Clr Calc Pharmacy 43.2 ml/min; Est GFR (African American) 65.9 ml/min; Est GFR (Non-African American) 56.8 ml/min; Magnesium 1.7 mg/dl (1.7-2.4); Phosphorus 4.6 mg/dl (2.5-4.9)
[2023-01-15] MEDS: MEMANTINE HCL 5 MG TAB PO SCH ×2 (08:59→20:37)
[2023-01-15] MEDS: CARBIDOPA/LEVODOPA 25/100MG TAB PO SCH ×3 (08:59→20:38)
--- NOTE | 2023-01-15 08:59 | Hospitalist Progress Note ---
Date of Service January 15, 2023 Assessment & Plan (1) Small bowel obstruction: Plan: 72-year-old female past medical significant for hypertension, Parkinson disease history of bowel obstruction in the past presents with abdominal pain and found to have a high-grade small bowel obstruction. SMALL BOWEL OBSTRUCTION HIGH-GRADE Transition point at mid pelvis General surgery consulted Continue with conservative management approach at this time-bowel rest, IV fluids PPI BID Pt diet was advanced to clears 01/10 evening, developed nausea now back to NPO with sips/chips repeat KUB : persistent SBO appreciate Gen surg recs - recommending exploratory laparotomy, pt declining at this time wishing to continue conservative tx she is starting to have bowel motility Biscodyl suppository x 1 given - had a very small BM on (01/12/23) No abd. pain right now 01/14 NGT placed yesterday and surgery recommended. Pt is now considering surgery. Plan for OR later today. 01/15 Pt is s/p ex lap w/ adhesions lysis on 01/14 Currently w/ abd. discomfort, chest tightness, + abd. binder is applied and pt is using suppl. O2 CXR, ECG and troponin obtained and reviewed, pt was also transferred to telemetry for close monitoring After pain medications given pt much improved POSSIBLE ACUTE SINUSITIS Symptoms improving - was started on Unasyn, cont. Hypokalemia replace and monitor HYPERTENSION Continue home lisinopril Monitor closely PARKINSON'S DISEASE Continue home carbidopa levodopa DVT prophylaxis Lovenox tmrw, per surgery FULL CODE (2) HTN (hypertension): (3) Parkinson disease: Admission and Anticipated Discharge Date Admission Date: January 06, 2023 Subjective Pt seen in follow up of SBO, no s/p ex lap w/ adhesion lysis. This AM complaining of abd. pain, chest tightness and shortness of breath. Pt also on 4L of suppl. O2 CXR, ECG, troponin obtained and reviewed - pt was also transferred to telemetry for closer monitoring Review of Systems Review of Systems: All systems reviewed & are unremarkable except as noted in Subjective Physical Exam Physical Exam: GEN: Thin, petite, F, NAD, A&O x3, NGT placed HEENT: Normocephalic, atraumatic, conjunctivae moist, sclerae anicteric, mucous membranes moist. Lung: Clear to Auscultation bilaterally, no wheezes/rales/rhonchi Heart: Regular rate, regular rhythm, no murmurs Abdomen: minimally distended, mildly tender to palp., +abdominal binder Extremities: No edema Skin: Warm, no rash Results & Data Results & Data Vital Signs (Past 12 Hours) Vital Signs Temp Pulse Resp BP Pulse Ox O2 Del Method O2 Flow Rate 01/15/23 07:36 37.0 C 95 H 18 116/65 95 Nasal Cannula 3 01/15/23 03:31 36.3 C L 97 H 18 124/77 95 Oxymask 4 01/14/23 22:42 36.4 C L 92 H 16 113/73 95 Oxymask 4 01/14/23 21:56 Oxymask 4 01/14/23 21:45 36.3 C L 94 H 16 121/75 95 Oxymask 4 Laboratory Results 01/15/23 01/15/23 Range/Units 06:48 06:48 WBC 16.57 H (4.8-10.8) K/ul RBC 3.80 L (4.20-5.40) M/uL Hgb 11.8 L (12.0-16.0) g/dl Hct 35.4 L (37.0-47.0) % MCV 93.2 (80.0-100.0) fL MCH 31.1 (25.0-34.0) pg MCHC 33.3 (32.0-36.0) g/dL RDW Std Deviation 45.1 (36.4-46.3) fL RDW Coeff of Brandee 13.2 (11.5-14.5) % Plt Count 237 (130-400) K/uL MPV 8.9 L (9.4-12.4) fL Sodium 139 (136-145) mmol/L Potassium 4.0 (3.5-5.1) mmol/L Chloride 111 H (98-107) mmol/L Carbon Dioxide 22 (21-32) mmol/L Anion Gap 6 (3-11) BUN 9 (6-23) mg/dl Creatinine 0.98 (0.6-1.2) mg/dl Est Cr Clr Drug Dosing 43.2 ml/min Est GFR ( Amer) 65.9 ml/min Est GFR (Non-Af Amer) 56.8 ml/min BUN/Creatinine Ratio 9.2 L (10-20) Glucose 105 H (70-99(Fasting)) mg/dl Calcium 7.6 L (8.6-10.3) mg/dl Phosphorus 4.6 D (2.5-4.9) mg/dl Magnesium 1.7 (1.7-2.4) mg/dl Medications Administered Current Inpatient Medications Acetaminophen (Acetaminophen 325 Mg Tab) 650 mg PO Q4H PRN PRN Reason: FEVER OR PAIN Stop: 02/08/23 15:38 Last Admin: 01/12/23 17:34 Dose: 650 mg Carbidopa/Levodopa (Carbidopa/Levodopa 25/100mg Tab) 1.5 tab PO TID [facility] Stop: 02/05/23 08:59 Last Admin: 01/14/23 20:57 Dose: 1.5 tab Hydromorphone HCl (Hydromorphone Inj 0.5 Mg/0.5 Ml Syr) 0.5 mg IV Q4H PRN PRN Reason: Pain Stop: 01/20/23 01:29 Last Admin: 01/06/23 08:17 Dose: 0.5 mg Pantoprazole Sodium 40 mg/ (Syringe) 10 mls @ 5 mls/min IV BID [facility] Stop: 02/07/23 17:19 Last Admin: 01/14/23 20:57 Dose: 5 mls/min Promethazine HCl 6.25 mg/ (Sodium Chloride) 50.25 mls @ 201 mls/hr IV Q6H PRN PRN Reason: Nausea And Vomiting Stop: 02/10/23 01:29 Last Infusion: 01/11/23 02:27 Dose: Infused Potassium Chloride/Dextrose/Sod Cl (D5nss + 20meq Kcl) 20 meq in 1,000 mls @ 80 mls/hr IV .[id number] [facility] Stop: 02/05/23 10:59 Last Admin: 01/15/23 05:52 Dose: 80 mls/hr Cefazolin Sodium (Ancef 1000mg) 1,000 mg in 7.5 mls @ 2.5 mls/min IV Q8H [facility] Stop: 01/16/23 19:59 Last Admin: 01/15/23 04:47 Dose: 2.5 mls/min Lisinopril (Lisinopril 5 Mg Tab) 5 mg PO DAILY [facility] Stop: 02/05/23 08:59 Last Admin: 01/14/23 08:44 Dose: 5 mg Memantine (Memantine Hcl 5 Mg Tab) 5 mg PO BID [facility] Stop: 02/05/23 08:59 Last Admin: 01/14/23 20:57 Dose: 5 mg Miscellaneous Information (Tpn/Ppn Consult Pharmacy) 1 each N/A UD PRN PRN Reason: Consult Stop: 02/13/23 16:02 Multivitamins (Multivitamin Tab) 1 tab PO QAM [facility] Stop: 02/05/23 08:59 Last Admin: 01/14/23 08:44 Dose: 1 tab Ondansetron HCl (Ondansetron Inj 2 Mg/Ml 2 Ml Vial) 4 mg IV Q6H PRN PRN Reason: Nausea Stop: 02/05/23 01:29 Last Admin: 01/10/23 21:20 Dose: 4 mg
[2023-01-15] MEDS: MULTIVITAMIN TAB PO SCH (09:00)
[2023-01-15] MEDS: PANTOprazole 40 MG in SYRINGE 0 ML IV SCH ×2 (09:00→20:37)
[2023-01-15] MEDS: lisinopril 5 MG TAB PO SCH (09:00)
[2023-01-15] MEDS ORDERED: MAGNESIUM SULFATE / D5W 1 GM/100 ML BAG IV ONE (09:15)
--- NOTE | 2023-01-15 10:42 | XRay Report ---
SINGLE VIEW CHEST CLINICAL HISTORY: Atypical chest pain. Hypoxia. Recent surgery. FINDINGS: An AP, portable, upright chest radiograph is obtained. No prior studies are available for c omparison at the time of dictation. An enteric tube is in place. The tip projects below the diaphragm over the mid stomach. The heart is top normal for projection. There is mild pulmonary vascular conge stion. There are small pleural effusions with dependent consolidation. A hiatal hernia is observed. N o pneumothorax is seen. The bony thorax is grossly intact. Midline skin clips are noted in the upper abdomen. IMPRESSION: 1. Pulmonary vascular congestion. 2. Small pleural effusions with dependent consolidation. 3. Hiatal hernia. 4. An enteric tube is in place as above. ACT 112: Negative or not required by law. Electronically signed by: Franky Williamson M.D. 01/15/2023 10:40 AM
[2023-01-15] MEDS ORDERED: ACETAMINOPHEN 1,000 MG/100 ML VIAL IV PRN (11:01)
[2023-01-15] MEDS ORDERED: FUROSEMIDE INJ 20 MG/2 ML VIAL IV ONE (11:02)
--- NOTE | 2023-01-15 12:41 | Surgery Progress Note ---
Date of Service January 15, 2023 Assessment & Plan (1) Small bowel obstruction: Plan: s/p ex lap with SAMIRA con't ngt con't wilkinson PPN OOB as tolerated Present on Admission?: Yes Admission and Anticipated Discharge Date Admission Date: January 06, 2023 Subjective pain controlled a little OB this AM; seen by medical team PPN today keep wilkinson once fluid status resolved lovenox in AM Review of Systems Constitutional: no fever and no chills Respiratory: no dyspnea Cardiovascular: no chest pain Gastrointestinal: + abdominal pain; no nausea and no vomiting Physical Exam Constitutional: WD/WN, vitals as above Neck: trachea midline Respiratory: normal respiratory effort, lungs clear to auscultation Cardiovascular: RRR, no murmur, no edema Gastrointestinal (Abdomen): Inspection/Auscultation: abdomen normal to inspection and + abdomen distended; + abnormal bowel sounds Percussion/Palpation: + abdomen tender and abdomen soft; no guarding and abdomen not rigid Musculoskeletal: Head/Neck/Chest: normocephalic and head atraumatic Skin: no rashes, warm and dry Results & Data Vital Signs (Past 12 Hours) Vital Signs Temp Pulse Pulse Resp BP Pulse Ox O2 Del Method 01/15/23 12:00 Nasal Cannula 01/15/23 11:57 36.8 C 88 17 114/74 97 Nasal Cannula 01/15/23 09:10 Oxymask 01/15/23 10:10 100 H 18 133/77 97 Oxymask 01/15/23 07:36 37.0 C 95 H 18 116/65 95 Nasal Cannula 01/15/23 03:31 36.3 C L 97 H 18 124/77 95 Oxymask O2 Flow Rate 01/15/23 12:00 4 01/15/23 11:57 4 01/15/23 09:10 4 01/15/23 10:10 4 01/15/23 07:36 4 01/15/23 03:31 4
--- NOTE | 2023-01-15 12:47 | Pharmacy Report ---
Pharmacy PN Initial Consult - Date of Service January 15, 2023 - Scope Pharmacy has been consulted to manage parenteral nutrition orders and order appropriate labs. As part of the Nutrition Support Team guidelines, pharmacy will work in conjunction with dietary when determining the patients caloric needs. - Subjective The patient is a 72 year old F admitted on 01/06/23 00:38 for SBO. Patient is to receive parenteral nutrition for NPO/ Clears diet x 10 days, per surgery request, POD1 ex-lap. Patient was receiving D5 containing IVF's @ 80 ml/hr over the past few days, however became SOB this AM & Dr. Hernandez requested current IVF's be d/c'd & total fluid volume for PPN decreased to ~ 1500 ml. - Objective Height: 5 ft 4 in Weight: 54.295 kg Diet: NPO Intake & Output (Last 24Hrs): Intake & Output 01/13/23 01/14/23 01/15/23 01/16/23 06:59 06:59 06:59 06:59 Intake Total 2623.667 / 2623.667 2585.333 / 2585.333 2417 / 2417 341.333 / 341.333 Output Total 5000 / 5000 1320 / 1320 300 / 300 Balance 2623.667 / 2623.667 -2414.667 / -2414.667 1097 / 1097 41.333 / 41.333 Weight 54.295 kg 54.295 kg 54.295 kg Laboratory Data (Last 24 Hrs):: 01/15/23 06:48 Sodium 139 Potassium 4.0 Chloride 111 H Carbon Dioxide 22 BUN 9 Creatinine 0.98 Glucose 105 H Calcium 7.6 L Phosphorus 4.6 D Magnesium 1.7 Nutrition Assessment:: Please refer to the Notes section of the EMR for complete assistant maintenance manager notes. - Plan For day 1 of PN administration, the following will be ordered: Macronutrients Amino acids 64 grams/day Dextrose 75 grams/day Lipids 25 grams/day on day 1, increase to 50grams/day on day 2 Micronutrients Combined electrolytes 20 mL - contains 35 mEq Na, 20 meq K, 4.5 mEq Ca, 5 mEq Mg, 35 mEq Cl, 29.5 mEq acetate per 20 mL Potassium phosphate 15 mMol Multivitamins 10 mL Trace Elements 10 mL Additional additives: Thiamine 100mg, Folic acid 1mg Total volume 1537 mL to be infused over 24 hrs will provide 760 kcal/day (increase in lipids tomorrow will provide 1010 kcal/day) Final osmolarity 743 mOsm/L (maximum for PPN is 900 mOsm/L) Labs to be ordered per PN order protocol Pharmacy will follow and adjust parenteral nutrition orders on a daily basis. Thank you.
--- NOTE | 2023-01-15 13:46 | Electrocardiogram Report ---
Test Reason : Blood Pressure : / mmHG Vent. Rate : 100 BPM Atrial Rate : 100 BPM P-R Int : 162 ms QRS Dur : 082 ms QT Int : 340 ms P-R-T Axes : 042 001 069 degrees QTc Int : 438 ms Normal sinus rhythm Nonspecific T wave abnormality Abnormal ECG When compared with ECG of 08-JAN-2023 03:59, No significant change was found Confirmed by Shukri Ferguson ([id number]) on 01/15/2023 1:46:10 PM Referred By: REFERRED SELF Confirmed By:Vini Ferguson
[2023-01-15] MEDS ORDERED: PERIPHERAL TPN IV SCH (16:00)
[2023-01-15] MEDS ORDERED: [UNRECOGNIZED DRUG - OTHER] IV SCH (16:00)
[2023-01-15] MEDS ORDERED: CLINOLIPID 20% IV FAT EMULSION 125 ML IV SCH (16:00)
[2023-01-15] MEDS ORDERED: DEXTROSE 10% 1,000 ML IV PRN (16:00)
[2023-01-15] MEDS ORDERED: STOP CLINOLIPID SCH (19:00)
[2023-01-15] MEDS: HYDROmorphone INJ 0.5 MG/0.5 ML SYR IV PRN (20:17)
[2023-01-16] MEDS: HYDROmorphone INJ 0.5 MG/0.5 ML SYR IV PRN ×3 (02:43→21:15)
[2023-01-16] MEDS: ceFAZolin 1000MG 1,000 MG/7.5 ML SYR IV SCH ×2 (03:59→12:20)
[2023-01-16 06:36] LABS: Hematocrit (blood only) 34.1 % (37.0-47.0); Hemoglobin 11.2 g/dl (12.0-16.0); Mean Corpuscular Hemoglobin 30.9 pg (25.0-34.0); Mean Corpuscular Hgb Conc 32.8 g/dL (32.0-36.0); Mean Corpuscular Volume 93.9 fL (80.0-100.0); Mean Platelet Volume 8.8 fL (9.4-12.4); Platelet Count 240 K/uL (130-400); RDW Coefficient of Variation 13.5 % (11.5-14.5); RDW Standard Deviation 46.1 fL (36.4-46.3); Red Blood Count 3.63 M/uL (4.20-5.40); White Blood Count 15.37 K/ul (4.8-10.8)
[2023-01-16 07:01] LABS: Calcium 7.6 mg/dl (8.6-10.3); Creatinine Clr Calc Pharmacy 52.2 ml/min; Est GFR (African American) 82.9 ml/min; Est GFR (Non-African American) 71.5 ml/min; Magnesium 1.9 mg/dl (1.7-2.4); Phosphorus 3.3 mg/dl (2.5-4.9); Potassium 3.4 mmol/L (3.5-5.1)
--- NOTE | 2023-01-16 07:17 | Hospitalist Progress Note ---
Date of Service January 16, 2023 Assessment & Plan (1) Small bowel obstruction: Plan: 72-year-old female past medical significant for hypertension, Parkinson disease history of bowel obstruction in the past presents with abdominal pain and found to have a high-grade small bowel obstruction. SMALL BOWEL OBSTRUCTION HIGH-GRADE Transition point at mid pelvis General surgery consulted Continue with conservative management approach at this time-bowel rest, IV fluids PPI BID Pt diet was advanced to clears 01/10 evening, developed nausea now back to NPO with sips/chips repeat KUB : persistent SBO appreciate Gen surg recs - recommending exploratory laparotomy, pt declining at this time wishing to continue conservative tx she is starting to have bowel motility Biscodyl suppository x 1 given - had a very small BM on (01/12/23) No abd. pain right now 01/14 NGT placed yesterday and surgery recommended. Pt is now considering surgery. Plan for OR later today. Pt is s/p ex lap w/ adhesions lysis on 01/14 Currently w/ abd. discomfort but otherwise in NAD, NGT placed, suppl. O2 POSSIBLE ACUTE SINUSITIS Symptoms improved - was treated w/Unasyn Hypokalemia replace and monitor HYPERTENSION Continue home lisinopril Monitor closely PARKINSON'S DISEASE Continue home carbidopa levodopa DVT prophylaxis Lovenox, per surgery FULL CODE (2) HTN (hypertension): (3) Parkinson disease: Admission and Anticipated Discharge Date Admission Date: January 06, 2023 Subjective Pt seen in follow up of SBO, no s/p ex lap w/ adhesion lysis. Currently laying in bed in NAD, reports abd. pain (post-surg.) Surgery following closely, NGT placed Review of Systems Review of Systems: All systems reviewed & are unremarkable except as noted in Subjective Physical Exam Physical Exam: GEN: Thin, petite, F, NAD, A&O x3, NGT placed HEENT: Normocephalic, atraumatic, conjunctivae moist, sclerae anicteric, mucous membranes moist. Lung: Clear to Auscultation bilaterally, no wheezes/rales/rhonchi Heart: Regular rate, regular rhythm, no murmurs Abdomen: minimally distended, mildly tender to palp., +abdominal binder Extremities: No edema Skin: Warm, no rash Results & Data Results & Data Vital Signs (Past 12 Hours) Vital Signs Temp Pulse Pulse Resp BP Pulse Ox O2 Del Method 01/16/23 07:14 79 01/16/23 03:29 36.5 C 81 18 124/76 93 Nasal Cannula 01/15/23 23:53 36.6 C 79 18 116/67 96 Nasal Cannula 01/15/23 23:07 80 01/15/23 22:33 Nasal Cannula 01/15/23 19:45 36.7 C 85 18 134/83 94 Nasal Cannula O2 Flow Rate 01/16/23 07:14 01/16/23 03:29 4 01/15/23 23:53 4 01/15/23 23:07 01/15/23 22:33 4 01/15/23 19:45 4 Laboratory Results 01/16/23 01/16/23 01/15/23 Range/Units 06:01 06:01 10:21 WBC 15.37 H (4.8-10.8) K/ul RBC 3.63 L (4.20-5.40) M/uL Hgb 11.2 L (12.0-16.0) g/dl Hct 34.1 L (37.0-47.0) % MCV 93.9 (80.0-100.0) fL MCH 30.9 (25.0-34.0) pg MCHC 32.8 (32.0-36.0) g/dL RDW Std Deviation 46.1 (36.4-46.3) fL RDW Coeff of Brandee 13.5 (11.5-14.5) % Plt Count 240 (130-400) K/uL MPV 8.8 L (9.4-12.4) fL Sodium 138 (136-145) mmol/L Potassium 3.4 L (3.5-5.1) mmol/L Chloride 107 (98-107) mmol/L Carbon Dioxide 26 (21-32) mmol/L Anion Gap 5 (3-11) BUN 13 (6-23) mg/dl Creatinine 0.81 (0.6-1.2) mg/dl Est Cr Clr Drug Dosing 52.2 ml/min Est GFR ( Amer) 82.9 ml/min Est GFR (Non-Af Amer) 71.5 ml/min BUN/Creatinine Ratio 16.0 (10-20) Glucose 120 H (70-99(Fasting)) mg/dl Calcium 7.6 L (8.6-10.3) mg/dl Phosphorus 3.3 D (2.5-4.9) mg/dl Magnesium 1.9 (1.7-2.4) mg/dl Troponin I High Sens 10.2 (0-14) pg/ml 01/15/23 Range/Units 06:48 WBC (4.8-10.8) K/ul RBC (4.20-5.40) M/uL Hgb (12.0-16.0) g/dl Hct (37.0-47.0) % MCV (80.0-100.0) fL MCH (25.0-34.0) pg MCHC (32.0-36.0) g/dL RDW Std Deviation (36.4-46.3) fL RDW Coeff of Brandee (11.5-14.5) % Plt Count (130-400) K/uL MPV (9.4-12.4) fL Sodium 139 (136-145) mmol/L Potassium 4.0 (3.5-5.1) mmol/L Chloride 111 H (98-107) mmol/L Carbon Dioxide 22 (21-32) mmol/L Anion Gap 6 (3-11) BUN 9 (6-23) mg/dl Creatinine 0.98 (0.6-1.2) mg/dl Est Cr Clr Drug Dosing 43.2 ml/min Est GFR ( Amer) 65.9 ml/min Est GFR (Non-Af Amer) 56.8 ml/min BUN/Creatinine Ratio 9.2 L (10-20) Glucose 105 H (70-99(Fasting)) mg/dl Calcium 7.6 L (8.6-10.3) mg/dl Phosphorus 4.6 D (2.5-4.9) mg/dl Magnesium 1.7 (1.7-2.4) mg/dl Troponin I High Sens (0-14) pg/ml Medications Administered Current Inpatient Medications Acetaminophen (Acetaminophen 325 Mg Tab) 650 mg PO Q4H PRN PRN Reason: FEVER OR PAIN Stop: 02/08/23 15:38 Last Admin: 01/12/23 17:34 Dose: 650 mg Carbidopa/Levodopa (Carbidopa/Levodopa 25/100mg Tab) 1.5 tab PO TID [facility] Stop: 02/05/23 08:59 Last Admin: 01/15/23 20:38 Dose: 1.5 tab Hydromorphone HCl (Hydromorphone Inj 0.5 Mg/0.5 Ml Syr) 0.5 mg IV Q4H PRN PRN Reason: Pain Stop: 01/20/23 01:29 Last Admin: 01/16/23 02:43 Dose: 0.5 mg Pantoprazole Sodium 40 mg/ (Syringe) 10 mls @ 5 mls/min IV BID [facility] Stop: 02/07/23 17:19 Last Admin: 01/15/23 20:37 Dose: 5 mls/min Promethazine HCl 6.25 mg/ (Sodium Chloride) 50.25 mls @ 201 mls/hr IV Q6H PRN PRN Reason: Nausea And Vomiting Stop: 02/10/23 01:29 Last Infusion: 01/11/23 02:27 Dose: Infused Potassium Chloride/Dextrose/Sod Cl (D5nss + 20meq Kcl) 20 meq in 1,000 mls @ 80 mls/hr IV .[id number] [facility] Stop: 02/05/23 10:59 Last Infusion: 01/15/23 10:08 Dose: 0 mls/hr Cefazolin Sodium (Ancef 1000mg) 1,000 mg in 7.5 mls @ 2.5 mls/min IV Q8H [facility] Stop: 01/16/23 19:59 Last Admin: 01/16/23 03:59 Dose: 2.5 mls/min Acetaminophen (Ofirmev) 1,000 mg in 100 mls @ 400 mls/hr IV Q8H PRN PRN Reason: Pain Stop: 01/18/23 11:00 Last Infusion: 01/15/23 20:03 Dose: Infused Dextrose (D10w) 1,000 mls @ 0 mls/hr IV .Q0M PRN PRN Reason: protocol (see label comments) Stop: 02/14/23 15:59 Amino Acids 1,537 ml/ (Nutrition (Parenteral)) 1,537 mls @ 64 mls/hr IV .Q24H [facility]; Protocol Stop: 01/16/23 15:59 Last Admin: 01/15/23 17:11 Dose: 64 mls/hr Potassium Chloride (K [place] / Wtr) 10 meq in 100 mls @ 100 mls/hr IV Q1H [facility] Stop: 01/16/23 09:29 Lisinopril (Lisinopril 5 Mg Tab) 5 mg PO DAILY [facility] Stop: 02/05/23 08:59 Last Admin: 01/15/23 09:00 Dose: 5 mg Memantine (Memantine Hcl 5 Mg Tab) 5 mg PO BID [facility] Stop: 02/05/23 08:59 Last Admin: 01/15/23 20:37 Dose: 5 mg Miscellaneous Information (Tpn/Ppn Consult Pharmacy) 1 each N/A UD PRN PRN Reason: Consult Stop: 02/13/23 16:02 Multivitamins (Multivitamin Tab) 1 tab PO QAM [facility] Stop: 02/05/23 08:59 Last Admin: 01/15/23 09:00 Dose: 1 tab Ondansetron HCl (Ondansetron Inj 2 Mg/Ml 2 Ml Vial) 4 mg IV Q6H PRN PRN Reason: Nausea Stop: 02/05/23 01:29 Last Admin: 01/10/23 21:20 Dose: 4 mg
[2023-01-16] MEDS: POTASSIUM CHLORIDE / WTR 10 MEQ/100 ML PLCT IV SCH ×2 (07:37→08:32)
[2023-01-16] MEDS: MULTIVITAMIN TAB PO SCH (09:45)
[2023-01-16] MEDS: lisinopril 5 MG TAB PO SCH (10:07)
[2023-01-16] MEDS: PANTOprazole 40 MG in SYRINGE 0 ML IV SCH ×2 (10:07→21:19)
[2023-01-16] MEDS: MEMANTINE HCL 5 MG TAB PO SCH ×2 (10:07→21:25)
[2023-01-16] MEDS: CARBIDOPA/LEVODOPA 25/100MG TAB PO SCH ×3 (10:07→21:26)
--- NOTE | 2023-01-16 10:48 | Surgery Progress Note ---
Date of Service January 16, 2023 Assessment & Plan (1) Small bowel obstruction: Plan: doing well con't ngt PPN OOB begin lovenox Admission and Anticipated Discharge Date Admission Date: January 06, 2023 Subjective pain controlled no flatus NGT drainage decreasing Review of Systems Constitutional: no fever and no chills Respiratory: no dyspnea Cardiovascular: no chest pain Gastrointestinal: + abdominal pain; no nausea and no vomiting Neurologic: no localized weakness Psychiatric: no behavioral changes Physical Exam Constitutional: + thin Neck: trachea midline Respiratory: normal respiratory effort, lungs clear to auscultation Cardiovascular: RRR, no murmur, no edema Gastrointestinal (Abdomen): Inspection/Auscultation: abdomen normal to inspection, + abdomen distended and + abdominal surgical incision (healing well); + abnormal bowel sounds Percussion/Palpation: + abdomen tender and abdomen soft; no guarding and abdomen not rigid Musculoskeletal: Head/Neck/Chest: normocephalic and head atraumatic Results & Data Vital Signs (Past 12 Hours) Vital Signs Temp Pulse Pulse Pulse Resp BP BP 01/16/23 08:04 36.7 C 78 18 132/78 01/16/23 07:14 79 01/16/23 03:29 36.5 C 81 18 124/76 01/15/23 23:53 36.6 C 79 18 116/67 01/15/23 23:07 80 Pulse Ox O2 Del Method O2 Flow Rate 01/16/23 08:04 96 Nasal Cannula 2 01/16/23 07:14 01/16/23 03:29 93 Nasal Cannula 4 01/15/23 23:53 96 Nasal Cannula 4 01/15/23 23:07
[2023-01-16] MEDS ORDERED: CLINOLIPID 20% IV FAT EMULSION 250 ML IV SCH (16:00)
[2023-01-16] MEDS ORDERED: [UNRECOGNIZED DRUG - OTHER] IV SCH (16:00)
[2023-01-16] MEDS ORDERED: PERIPHERAL TPN IV SCH (16:00)
[2023-01-16] MEDS ORDERED: STOP CLINOLIPID SCH (22:00)
[2023-01-17] MEDS: HYDROmorphone INJ 0.5 MG/0.5 ML SYR IV PRN ×3 (03:35→21:52)
[2023-01-17 07:02] LABS: Hematocrit (blood only) 33.7 % (37.0-47.0); Hemoglobin 11.4 g/dl (12.0-16.0); Mean Corpuscular Hemoglobin 31.1 pg (25.0-34.0); Mean Corpuscular Hgb Conc 33.8 g/dL (32.0-36.0); Mean Corpuscular Volume 91.8 fL (80.0-100.0); Mean Platelet Volume 8.9 fL (9.4-12.4); Platelet Count 249 K/uL (130-400); RDW Coefficient of Variation 13.2 % (11.5-14.5); RDW Standard Deviation 44.7 fL (36.4-46.3); Red Blood Count 3.67 M/uL (4.20-5.40); White Blood Count 12.47 K/ul (4.8-10.8)
[2023-01-17 07:30] LABS: BUN Creatinine Ratio 27.6 (10-20); Calcium 7.9 mg/dl (8.6-10.3); Creatinine Clr Calc Pharmacy 72.9 ml/min; Est GFR (African American) 105.2 ml/min; Est GFR (Non-African American) 90.8 ml/min; Magnesium 1.9 mg/dl (1.7-2.4); Phosphorus 3.6 mg/dl (2.5-4.9)
[2023-01-17] MEDS: PANTOprazole 40 MG in SYRINGE 0 ML IV SCH ×2 (08:09→21:53)
[2023-01-17] MEDS: MEMANTINE HCL 5 MG TAB PO SCH ×2 (08:10→21:53)
[2023-01-17] MEDS: ONDANSETRON INJ 2 MG/ML 2 ML VIAL IV PRN (08:10)
[2023-01-17] MEDS: CARBIDOPA/LEVODOPA 25/100MG TAB PO SCH ×3 (08:10→21:53)
[2023-01-17] MEDS: ENOXAPARIN INJ 40 MG/0.4 ML SYR SQ SCH (08:11)
[2023-01-17] MEDS: lisinopril 5 MG TAB PO SCH (08:11)
[2023-01-17] MEDS: CIPROFLOXACIN / D5W 400 MG/200 ML BAG IV SCH ×2 (09:27→21:52)
--- NOTE | 2023-01-17 10:42 | Hospitalist Progress Note ---
Date of Service January 17, 2023 Assessment & Plan (1) Small bowel obstruction: Plan: 72-year-old female past medical significant for hypertension, Parkinson disease history of bowel obstruction in the past presents with abdominal pain and found to have a high-grade small bowel obstruction. SMALL BOWEL OBSTRUCTION HIGH-GRADE Transition point at mid pelvis General surgery consulted Continue with conservative management approach at this time-bowel rest, IV fluids PPI BID Pt diet was advanced to clears 01/10 evening, developed nausea now back to NPO with sips/chips repeat KUB : persistent SBO appreciate Gen surg recs - recommending exploratory laparotomy, pt declining at this time wishing to continue conservative tx she is starting to have bowel motility Biscodyl suppository x 1 given - had a very small BM on (01/12/23) No abd. pain right now 01/14 NGT placed yesterday and surgery recommended. Pt is now considering surgery. Plan for OR later today. Pt is s/p ex lap w/ adhesions lysis on 01/14 Currently w/ abd. discomfort but otherwise in NAD, NGT placed, suppl. O2 01/17 NGT removed, pt is passing flatus, uses 2L of suppl. O2 POSSIBLE ACUTE SINUSITIS Symptoms improved - was treated w/Unasyn Hypokalemia replace and monitor HYPERTENSION Continue home lisinopril Monitor closely PARKINSON'S DISEASE Continue home carbidopa levodopa DVT prophylaxis Lovenox, per surgery FULL CODE (2) HTN (hypertension): (3) Parkinson disease: Admission and Anticipated Discharge Date Admission Date: January 06, 2023 Subjective Pt seen in follow up of SBO, no s/p ex lap w/ adhesion lysis. Currently laying in bed in NAD, reports abd. pain (post-surg.) Surgery following closely, NGT now removed Pt reports she is passing flatus Review of Systems Review of Systems: All systems reviewed & are unremarkable except as noted in Subjective Physical Exam Physical Exam: GEN: Thin, petite, F, NAD, A&O x3, NGT placed HEENT: Normocephalic, atraumatic, conjunctivae moist, sclerae anicteric, mucous membranes moist. Lung: Clear to Auscultation bilaterally, no wheezes/rales/rhonchi Heart: Regular rate, regular rhythm, no murmurs Abdomen: minimally distended, mildly tender to palp., +abdominal binder Extremities: No edema Skin: Warm, no rash Results & Data Results & Data Vital Signs (Past 12 Hours) Vital Signs Temp Pulse Pulse Pulse Resp BP Pulse Ox 01/17/23 08:00 76 01/17/23 08:00 01/17/23 07:36 36.5 C 73 18 124/80 99 01/17/23 03:35 36.7 C 74 18 129/82 97 01/17/23 00:00 36.9 C 83 18 130/65 94 01/17/23 00:13 O2 Del Method O2 Flow Rate 01/17/23 08:00 01/17/23 08:00 Nasal Cannula 4 01/17/23 07:36 Nasal Cannula 2 01/17/23 03:35 Nasal Cannula 4 01/17/23 00:00 Nasal Cannula 4 01/17/23 00:13 Nasal Cannula 4 Laboratory Results 01/17/23 01/17/23 Range/Units 05:56 05:56 WBC 12.47 H (4.8-10.8) K/ul RBC 3.67 L (4.20-5.40) M/uL Hgb 11.4 L (12.0-16.0) g/dl Hct 33.7 L (37.0-47.0) % MCV 91.8 (80.0-100.0) fL MCH 31.1 (25.0-34.0) pg MCHC 33.8 (32.0-36.0) g/dL RDW Std Deviation 44.7 (36.4-46.3) fL RDW Coeff of Brandee 13.2 (11.5-14.5) % Plt Count 249 (130-400) K/uL MPV 8.9 L (9.4-12.4) fL Sodium 137 (136-145) mmol/L Potassium 4.0 (3.5-5.1) mmol/L Chloride 105 (98-107) mmol/L Carbon Dioxide 28 (21-32) mmol/L Anion Gap 4 (3-11) BUN 16 (6-23) mg/dl Creatinine 0.58 L (0.6-1.2) mg/dl Est Cr Clr Drug Dosing 72.9 ml/min Est GFR ( Amer) 105.2 ml/min Est GFR (Non-Af Amer) 90.8 ml/min BUN/Creatinine Ratio 27.6 H (10-20) Glucose 119 H (70-99(Fasting)) mg/dl Calcium 7.9 L (8.6-10.3) mg/dl Phosphorus 3.6 (2.5-4.9) mg/dl Magnesium 1.9 (1.7-2.4) mg/dl Medications Administered Current Inpatient Medications Acetaminophen (Acetaminophen 325 Mg Tab) 650 mg PO Q4H PRN PRN Reason: FEVER OR PAIN Stop: 02/08/23 15:38 Last Admin: 01/12/23 17:34 Dose: 650 mg Carbidopa/Levodopa (Carbidopa/Levodopa 25/100mg Tab) 1.5 tab PO TID [facility] Stop: 02/05/23 08:59 Last Admin: 01/17/23 08:10 Dose: 1.5 tab Enoxaparin Sodium (Enoxaparin Inj 40 Mg/0.4 Ml Syr) 40 mg SQ QAM [facility] Stop: 02/16/23 08:59 Last Admin: 01/17/23 08:11 Dose: 40 mg Hydromorphone HCl (Hydromorphone Inj 0.5 Mg/0.5 Ml Syr) 0.5 mg IV Q4H PRN PRN Reason: Pain Stop: 01/20/23 01:29 Last Admin: 01/17/23 08:10 Dose: 0.5 mg Pantoprazole Sodium 40 mg/ (Syringe) 10 mls @ 5 mls/min IV BID [facility] Stop: 02/07/23 17:19 Last Admin: 01/17/23 08:09 Dose: 5 mls/min Promethazine HCl 6.25 mg/ (Sodium Chloride) 50.25 mls @ 201 mls/hr IV Q6H PRN PRN Reason: Nausea And Vomiting Stop: 02/10/23 01:29 Last Infusion: 01/11/23 02:27 Dose: Infused Potassium Chloride/Dextrose/Sod Cl (D5nss + 20meq Kcl) 20 meq in 1,000 mls @ 80 mls/hr IV .[id number] [facility] Stop: 02/05/23 10:59 Last Infusion: 01/15/23 10:08 Dose: 0 mls/hr Acetaminophen (Ofirmev) 1,000 mg in 100 mls @ 400 mls/hr IV Q8H PRN PRN Reason: Pain Stop: 01/18/23 11:00 Last Infusion: 01/15/23 20:03 Dose: Infused Dextrose (D10w) 1,000 mls @ 0 mls/hr IV .Q0M PRN PRN Reason: protocol (see label comments) Stop: 02/14/23 15:59 Amino Acids 1,552 ml/ (Nutrition (Parenteral)) 1,552 mls @ 64.7 mls/hr IV .Q24H [facility]; Protocol Stop: 01/17/23 15:59 Last Admin: 01/16/23 16:16 Dose: 64.7 mls/hr Ciprofloxacin (Cipro / D5w) 400 mg in 200 mls @ 100 mls/hr IV Q12H [facility]; Protocol Stop: 01/19/23 08:59 Last Admin: 01/17/23 09:27 Dose: 100 mls/hr Fat Emulsion-[place] Oil/Soybean Oil (Clinolipid 20% Iv Fat Emulsion) 250 mls @ 41.667 mls/hr IV .Q6H [facility] Stop: 01/17/23 21:59 Amino Acids 1,581 ml/ (Nutrition (Parenteral)) 1,581 mls @ 66 mls/hr IV .[id number] [facility]; Protocol Stop: 01/18/23 15:57 Lisinopril (Lisinopril 5 Mg Tab) 5 mg PO DAILY [facility] Stop: 02/05/23 08:59 Last Admin: 01/17/23 08:11 Dose: 5 mg Memantine (Memantine Hcl 5 Mg Tab) 5 mg PO BID [facility] Stop: 02/05/23 08:59 Last Admin: 01/17/23 08:10 Dose: 5 mg Miscellaneous (Stop Clinolipid) 1 each N/A DAILY@2200 [facility] Stop: 02/16/23 21:59 Miscellaneous Information (Tpn/Ppn Consult Pharmacy) 1 each N/A UD PRN PRN Reason: Consult Stop: 02/13/23 16:02 Multivitamins (Multivitamin Tab) 1 tab PO QAM [facility] Stop: 02/05/23 08:59 Last Admin: 01/16/23 09:45 Dose: Not Given Ondansetron HCl (Ondansetron Inj 2 Mg/Ml 2 Ml Vial) 4 mg IV Q6H PRN PRN Reason: Nausea Stop: 02/05/23 01:29 Last Admin: 01/17/23 08:10 Dose: 4 mg
--- NOTE | 2023-01-17 13:16 | Surgery Progress Note ---
Date of Service January 17, 2023 Assessment & Plan (1) Small bowel obstruction: Plan: doing well con't ngt PPN OOB begin lovenox 01/17/2023 1:[address] Quinn F/U S/P Exploratory Laparotomy, Lysis of Adhesions, POD 3 pt is doing fine, WBC 12,000. start cipro pulled NG tube, D/C wilkinson miralax OOB repeat labs tomorrow will F/U Admission and Anticipated Discharge Date Admission Date: January 06, 2023 Supervising Physician Co-Signing Physician Notes Pt seen and examined by me, care coordinated w/ B. SEFERINO Scott, pls refer to her note above for further detail. Today pt tells me she is not passing flatus today or overnight, also no BM. However denies abd. pain. Also no nausea or vomiting. Yesterday not doing well after trying clear liquid diet. Today, surgery service is recommending ex lap, pt declines and wants to continue w/ conservative management. Potassium replaced. IVF. Cont. to closely monitor. Plan as above. MD Mary Subjective Pt seen in follow up of SBO, no s/p ex lap w/ adhesion lysis. Currently laying in bed in NAD, reports abd. pain (post-surg.) Surgery following closely, NGT placed 01/17/2023 1:11PM DR. Quinn F/U S/P Exploratory Laparotomy, Lysis of Adhesions, POD 3 pt is doing fine, passed some flatus, good control abdominal pain, no fever, NG 200ml. Review of Systems Constitutional: no fever and no chills Respiratory: no dyspnea Cardiovascular: no chest pain Gastrointestinal: + abdominal pain; no nausea and no vomiting Neurologic: no localized weakness Psychiatric: no behavioral changes Physical Exam Constitutional: WD/WN, vitals as above cooperative, comfortable and + lethargic; no acute distress and not diaphoretic Eyes: PERRL, conjunctivae normal, anicteric sclerae Neck: trachea midline, no thyromegaly Respiratory: normal respiratory effort, lungs clear to auscultation normal respiratory effort; no respiratory distress Cardiovascular: RRR, no murmur, no edema Gastrointestinal (Abdomen): soft, mild tenderness at incision site, the incision intact, no redness, BS +. Neurologic: patellar DTR's 2+ bilat, sensation intact Psychiatric: A+Ox3, euthymic affect Orientation: alert Results & Data Vital Signs (Past 12 Hours) Vital Signs Temp Pulse Pulse Pulse Resp BP BP 01/17/23 11:05 37.0 C 82 18 133/84 01/17/23 08:00 76 01/17/23 08:00 01/17/23 07:36 36.5 C 73 18 124/80 01/17/23 03:35 36.7 C 74 18 129/82 Pulse Ox O2 Del Method O2 Flow Rate 01/17/23 11:05 96 Nasal Cannula 2 01/17/23 08:00 01/17/23 08:00 Nasal Cannula 4 01/17/23 07:36 99 Nasal Cannula 2 01/17/23 03:35 97 Nasal Cannula 4 Laboratory Results Lab Results 01/05/23 01/05/23 01/05/23 Range/Units 18:48 18:48 18:57 WBC 9.95 (4.8-10.8) K/ul RBC 4.39 (4.20-5.40) M/uL Hgb 13.7 (12.0-16.0) g/dl Hct 41.4 (37.0-47.0) % MCV 94.3 (80.0-100.0) fL MCH 31.2 (25.0-34.0) pg MCHC 33.1 (32.0-36.0) g/dL RDW Std Deviation 44.9 (36.4-46.3) fL RDW Coeff of Brandee 12.9 (11.5-14.5) % Plt Count 176 (130-400) K/uL MPV 9.4 (9.4-12.4) fL Immature Gran % (Auto) 0.3 % Neut % (Auto) 82.5 % Lymph % (Auto) 9.9 % [place] % (Auto) 6.0 % Eos % (Auto) 0.8 % Baso % (Auto) 0.5 % Neut # (Auto) 8.20 H (1.40-6.50) K/uL Lymph # (Auto) 0.99 L (1.2-3.4) K/uL [place] # (Auto) 0.60 H (0.11-0.59) K/uL Eos # (Auto) 0.08 (0-0.50) K/uL Baso # (Auto) 0.05 (0-0.2) K/uL Immature Gran # (Auto) 0.03 (0.01-0.20) K/uL RBC Morphology Sodium 137 (136-145) mmol/L Potassium 4.3 (3.5-5.1) mmol/L Chloride 104 (98-107) mmol/L Carbon Dioxide 26 (21-32) mmol/L Anion Gap 7 (3-11) BUN 27 H (6-23) mg/dl Creatinine 1.20 (0.6-1.2) mg/dl Est Cr Clr Drug Dosing 35.1 ml/min Est GFR ( Amer) 51.6 ml/min Est GFR (Non-Af Amer) 44.5 ml/min BUN/Creatinine Ratio 22.5 H (10-20) Glucose 124 H (70-99(Fasting)) mg/dl Calcium 10.0 (8.6-10.3) mg/dl Phosphorus (2.5-4.9) mg/dl Magnesium (1.7-2.4) mg/dl Total Bilirubin 0.6 (0.2-1.0) mg/dl AST 19 (13-39) U/L ALT 3 L (7-52) U/L Alkaline Phosphatase 82 (34-104) U/L Troponin I High Sens (0-14) pg/ml Total Protein 8.0 (6.0-8.3) gm/dl Albumin 4.7 (3.4-5.0) gm/dl Globulin 3.3 (2.5-4.0) gm/dl Albumin/Globulin Ratio 1.4 (0.9-2) Lipase 17 (11-82) U/L Urine Color Dark Yellow Urine Appearance Cloudy A (Clear) Urine pH 5.5 (4.5-7.5) Ur Specific [place] 1.036 H (1.000-1.030) Urine Protein 1+ H (Negative) Urine Glucose (UA) Negative (Negative) Urine Ketones 1+ H (Negative) Urine Blood Negative (Negative) Urine Nitrite Negative (Negative) Urine Bilirubin 1+ H (Negative) Urine Urobilinogen Negative (Negative) Ur Leukocyte Esterase Trace H (Negative) Urine WBC (Auto) 5-10 H (0-5) /hpf Urine RBC (Auto) 0-4 (0-4) /hpf U Hyaline Cast (Auto) 1-5 (0-5) /lpf U Epithel Cells (Auto) >30 H (0-5) /lpf Urine Bacteria (Auto) Negative (Negative) Ur Renal Epithelial Cell Not Reportable Urine Yeast Not Reportable 01/06/23 01/06/23 01/08/23 Range/Units 07:25 07:25 11:15 WBC 11.37 H (4.8-10.8) K/ul RBC 4.19 L (4.20-5.40) M/uL Hgb 13.1 (12.0-16.0) g/dl Hct 39.6 (37.0-47.0) % MCV 94.5 (80.0-100.0) fL MCH 31.3 (25.0-34.0) pg MCHC 33.1 (32.0-36.0) g/dL RDW Std Deviation 44.7 (36.4-46.3) fL RDW Coeff of Brandee 13.1 (11.5-14.5) % Plt Count 155 (130-400) K/uL MPV 9.6 (9.4-12.4) fL Immature Gran % (Auto) 0.4 % Neut % (Auto) 87.8 % Lymph % (Auto) 5.3 % [place] % (Auto) 6.0 % Eos % (Auto) 0.2 % Baso % (Auto) 0.3 % Neut # (Auto) 10.00 H (1.40-6.50) K/uL Lymph # (Auto) 0.60 L (1.2-3.4) K/uL [place] # (Auto) 0.68 H (0.11-0.59) K/uL Eos # (Auto) 0.02 (0-0.50) K/uL Baso # (Auto) 0.03 (0-0.2) K/uL Immature Gran # (Auto) 0.04 (0.01-0.20) K/uL RBC Morphology Sodium 136 144 (136-145) mmol/L Potassium 4.1 3.3 L (3.5-5.1) mmol/L Chloride 107 104 (98-107) mmol/L Carbon Dioxide 24 31 (21-32) mmol/L Anion Gap 5 9 (3-11) BUN 20 28 H (6-23) mg/dl Creatinine 0.97 1.26 H (0.6-1.2) mg/dl Est Cr Clr Drug Dosing 43.6 33.6 ml/min Est GFR ( Amer) 66.7 48.6 ml/min Est GFR (Non-Af Amer) 57.5 41.9 ml/min BUN/Creatinine Ratio 20.6 H 22.2 H (10-20) Glucose 192 H 130 H (70-99(Fasting)) mg/dl Calcium 8.9 9.5 (8.6-10.3) mg/dl Phosphorus (2.5-4.9) mg/dl Magnesium 1.9 1.9 (1.7-2.4) mg/dl Total Bilirubin (0.2-1.0) mg/dl AST (13-39) U/L ALT (7-52) U/L Alkaline Phosphatase (34-104) U/L Troponin I High Sens (0-14) pg/ml Total Protein (6.0-8.3) gm/dl Albumin (3.4-5.0) gm/dl Globulin (2.5-4.0) gm/dl Albumin/Globulin Ratio (0.9-2) Lipase (11-82) U/L Urine Color Urine Appearance (Clear) Urine pH (4.5-7.5) Ur Specific [place] (1.000-1.030) Urine Protein (Negative) Urine Glucose (UA) (Negative) Urine Ketones (Negative) Urine Blood (Negative) Urine Nitrite (Negative) Urine Bilirubin (Negative) Urine Urobilinogen (Negative) Ur Leukocyte Esterase (Negative) Urine WBC (Auto) (0-5) /hpf Urine RBC (Auto) (0-4) /hpf U Hyaline Cast (Auto) (0-5) /lpf U Epithel Cells (Auto) (0-5) /lpf Urine Bacteria (Auto) (Negative) Ur Renal Epithelial Cell Urine Yeast 01/09/23 01/10/23 01/11/23 Range/Units 06:25 07:05 06:21 WBC (4.8-10.8) K/ul RBC (4.20-5.40) M/uL Hgb (12.0-16.0) g/dl Hct (37.0-47.0) % MCV (80.0-100.0) fL MCH (25.0-34.0) pg MCHC (32.0-36.0) g/dL RDW Std Deviation (36.4-46.3) fL RDW Coeff of Brandee (11.5-14.5) % Plt Count (130-400) K/uL MPV (9.4-12.4) fL Immature Gran % (Auto) % Neut % (Auto) % Lymph % (Auto) % [place] % (Auto) % Eos % (Auto) % Baso % (Auto) % Neut # (Auto) (1.40-6.50) K/uL Lymph # (Auto) (1.2-3.4) K/uL [place] # (Auto) (0.11-0.59) K/uL Eos # (Auto) (0-0.50) K/uL Baso # (Auto) (0-0.2) K/uL Immature Gran # (Auto) (0.01-0.20) K/uL RBC Morphology Sodium 139 141 143 (136-145) mmol/L Potassium 3.7 3.7 3.4 L (3.5-5.1) mmol/L Chloride 105 108 H 111 H (98-107) mmol/L Carbon Dioxide 27 25 24 (21-32) mmol/L Anion Gap 7 8 8 (3-11) BUN 34 H 36 H 30 H (6-23) mg/dl Creatinine 1.02 0.93 0.90 (0.6-1.2) mg/dl Est Cr Clr Drug Dosing 41.5 45.5 47.0 ml/min Est GFR ( Amer) 62.8 70.2 73.0 ml/min Est GFR (Non-Af Amer) 54.1 60.5 63.0 ml/min BUN/Creatinine Ratio 33.3 H 38.7 H 33.3 H (10-20) Glucose 131 H 135 H 127 H (70-99(Fasting)) mg/dl Calcium 8.8 8.8 8.4 L (8.6-10.3) mg/dl Phosphorus (2.5-4.9) mg/dl Magnesium 1.9 2.1 2.1 (1.7-2.4) mg/dl Total Bilirubin (0.2-1.0) mg/dl AST (13-39) U/L ALT (7-52) U/L Alkaline Phosphatase (34-104) U/L Troponin I High Sens (0-14) pg/ml Total Protein (6.0-8.3) gm/dl Albumin (3.4-5.0) gm/dl Globulin (2.5-4.0) gm/dl Albumin/Globulin Ratio (0.9-2) Lipase (11-82) U/L Urine Color Urine Appearance (Clear) Urine pH (4.5-7.5) Ur Specific [place] (1.000-1.030) Urine Protein (Negative) Urine Glucose (UA) (Negative) Urine Ketones (Negative) Urine Blood (Negative) Urine Nitrite (Negative) Urine Bilirubin (Negative) Urine Urobilinogen (Negative) Ur Leukocyte Esterase (Negative) Urine WBC (Auto) (0-5) /hpf Urine RBC (Auto) (0-4) /hpf U Hyaline Cast (Auto) (0-5) /lpf U Epithel Cells (Auto) (0-5) /lpf Urine Bacteria (Auto) (Negative) Ur Renal Epithelial Cell Urine Yeast 01/12/23 01/13/23 01/13/23 Range/Units 08:33 07:18 07:18 WBC 5.77 (4.8-10.8) K/ul RBC 4.00 L (4.20-5.40) M/uL Hgb 12.2 (12.0-16.0) g/dl Hct 37.2 (37.0-47.0) % MCV 93.0 (80.0-100.0) fL MCH 30.5 (25.0-34.0) pg MCHC 32.8 (32.0-36.0) g/dL RDW Std Deviation 45.9 (36.4-46.3) fL RDW Coeff of Brandee 13.4 (11.5-14.5) % Plt Count 203 (130-400) K/uL MPV 9.4 (9.4-12.4) fL Immature Gran % (Auto) % Neut % (Auto) % Lymph % (Auto) % [place] % (Auto) % Eos % (Auto) % Baso % (Auto) % Neut # (Auto) (1.40-6.50) K/uL Lymph # (Auto) (1.2-3.4) K/uL [place] # (Auto) (0.11-0.59) K/uL Eos # (Auto) (0-0.50) K/uL Baso # (Auto) (0-0.2) K/uL Immature Gran # (Auto) (0.01-0.20) K/uL RBC Morphology Sodium 143 141 (136-145) mmol/L Potassium 3.4 L 3.6 (3.5-5.1) mmol/L Chloride 112 H 112 H (98-107) mmol/L Carbon Dioxide 25 23 (21-32) mmol/L Anion Gap 6 6 (3-11) BUN 20 16 (6-23) mg/dl Creatinine 0.93 0.88 (0.6-1.2) mg/dl Est Cr Clr Drug Dosing 45.5 48.1 ml/min Est GFR ( Amer) 70.2 75.0 ml/min Est GFR (Non-Af Amer) 60.5 64.7 ml/min BUN/Creatinine Ratio 21.5 H 18.2 (10-20) Glucose 118 H 118 H (70-99(Fasting)) mg/dl Calcium 8.5 L 8.4 L (8.6-10.3) mg/dl Phosphorus (2.5-4.9) mg/dl Magnesium 2.1 1.9 (1.7-2.4) mg/dl Total Bilirubin (0.2-1.0) mg/dl AST (13-39) U/L ALT (7-52) U/L Alkaline Phosphatase (34-104) U/L Troponin I High Sens (0-14) pg/ml Total Protein (6.0-8.3) gm/dl Albumin (3.4-5.0) gm/dl Globulin (2.5-4.0) gm/dl Albumin/Globulin Ratio (0.9-2) Lipase (11-82) U/L Urine Color Urine Appearance (Clear) Urine pH (4.5-7.5) Ur Specific [place] (1.000-1.030) Urine Protein (Negative) Urine Glucose (UA) (Negative) Urine Ketones (Negative) Urine Blood (Negative) Urine Nitrite (Negative) Urine Bilirubin (Negative) Urine Urobilinogen (Negative) Ur Leukocyte Esterase (Negative) Urine WBC (Auto) (0-5) /hpf Urine RBC (Auto) (0-4) /hpf U Hyaline Cast (Auto) (0-5) /lpf U Epithel Cells (Auto) (0-5) /lpf Urine Bacteria (Auto) (Negative) Ur Renal Epithelial Cell Urine Yeast 01/14/23 01/14/23 01/15/23 Range/Units 06:34 06:34 06:48 WBC 11.24 H 16.57 H (4.8-10.8) K/ul RBC 3.45 L 3.80 L (4.20-5.40) M/uL Hgb 10.6 L 11.8 L (12.0-16.0) g/dl Hct 33.0 L 35.4 L (37.0-47.0) % MCV 95.7 93.2 (80.0-100.0) fL MCH 30.7 31.1 (25.0-34.0) pg MCHC 32.1 33.3 (32.0-36.0) g/dL RDW Std Deviation 47.6 H 45.1 (36.4-46.3) fL RDW Coeff of Brandee 13.6 13.2 (11.5-14.5) % Plt Count 198 237 (130-400) K/uL MPV 9.1 L 8.9 L (9.4-12.4) fL Immature Gran % (Auto) 0.8 % Neut % (Auto) 86.0 % Lymph % (Auto) 8.0 % [place] % (Auto) 4.0 % Eos % (Auto) 0.8 % Baso % (Auto) 0.4 % Neut # (Auto) 9.66 H (1.40-6.50) K/uL Lymph # (Auto) 0.90 L (1.2-3.4) K/uL [place] # (Auto) 0.45 (0.11-0.59) K/uL Eos # (Auto) 0.09 (0-0.50) K/uL Baso # (Auto) 0.05 (0-0.2) K/uL Immature Gran # (Auto) 0.09 (0.01-0.20) K/uL RBC Morphology Unremarkable Sodium 142 (136-145) mmol/L Potassium 3.6 (3.5-5.1) mmol/L Chloride 116 H (98-107) mmol/L Carbon Dioxide 22 (21-32) mmol/L Anion Gap 4 (3-11) BUN 11 (6-23) mg/dl Creatinine 0.96 (0.6-1.2) mg/dl Est Cr Clr Drug Dosing 44.1 ml/min Est GFR ( Amer) 67.5 ml/min Est GFR (Non-Af Amer) 58.3 ml/min BUN/Creatinine Ratio 11.5 (10-20) Glucose 111 H (70-99(Fasting)) mg/dl Calcium 7.7 L (8.6-10.3) mg/dl Phosphorus 3.0 (2.5-4.9) mg/dl Magnesium 1.7 (1.7-2.4) mg/dl Total Bilirubin 0.5 (0.2-1.0) mg/dl AST 13 (13-39) U/L ALT 7 (7-52) U/L Alkaline Phosphatase 46 (34-104) U/L Troponin I High Sens (0-14) pg/ml Total Protein 4.7 L (6.0-8.3) gm/dl Albumin 2.4 L (3.4-5.0) gm/dl Globulin 2.3 L (2.5-4.0) gm/dl Albumin/Globulin Ratio 1.0 (0.9-2) Lipase (11-82) U/L Urine Color Urine Appearance (Clear) Urine pH (4.5-7.5) Ur Specific [place] (1.000-1.030) Urine Protein (Negative) Urine Glucose (UA) (Negative) Urine Ketones (Negative) Urine Blood (Negative) Urine Nitrite (Negative) Urine Bilirubin (Negative) Urine Urobilinogen (Negative) Ur Leukocyte Esterase (Negative) Urine WBC (Auto) (0-5) /hpf Urine RBC (Auto) (0-4) /hpf U Hyaline Cast (Auto) (0-5) /lpf U Epithel Cells (Auto) (0-5) /lpf Urine Bacteria (Auto) (Negative) Ur Renal Epithelial Cell Urine Yeast 01/15/23 01/15/23 01/16/23 Range/Units 06:48 10:21 06:01 WBC 15.37 H (4.8-10.8) K/ul RBC 3.63 L (4.20-5.40) M/uL Hgb 11.2 L (12.0-16.0) g/dl Hct 34.1 L (37.0-47.0) % MCV 93.9 (80.0-100.0) fL MCH 30.9 (25.0-34.0) pg MCHC 32.8 (32.0-36.0) g/dL RDW Std Deviation 46.1 (36.4-46.3) fL RDW Coeff of Brandee 13.5 (11.5-14.5) % Plt Count 240 (130-400) K/uL MPV 8.8 L (9.4-12.4) fL Immature Gran % (Auto) % Neut % (Auto) % Lymph % (Auto) % [place] % (Auto) % Eos % (Auto) % Baso % (Auto) % Neut # (Auto) (1.40-6.50) K/uL Lymph # (Auto) (1.2-3.4) K/uL [place] # (Auto) (0.11-0.59) K/uL Eos # (Auto) (0-0.50) K/uL Baso # (Auto) (0-0.2) K/uL Immature Gran # (Auto) (0.01-0.20) K/uL RBC Morphology Sodium 139 (136-145) mmol/L Potassium 4.0 (3.5-5.1) mmol/L Chloride 111 H (98-107) mmol/L Carbon Dioxide 22 (21-32) mmol/L Anion Gap 6 (3-11) BUN 9 (6-23) mg/dl Creatinine 0.98 (0.6-1.2) mg/dl Est Cr Clr Drug Dosing 43.2 ml/min Est GFR ( Amer) 65.9 ml/min Est GFR (Non-Af Amer) 56.8 ml/min BUN/Creatinine Ratio 9.2 L (10-20) Glucose 105 H (70-99(Fasting)) mg/dl Calcium 7.6 L (8.6-10.3) mg/dl Phosphorus 4.6 D (2.5-4.9) mg/dl Magnesium 1.7 (1.7-2.4) mg/dl Total Bilirubin (0.2-1.0) mg/dl AST (13-39) U/L ALT (7-52) U/L Alkaline Phosphatase (34-104) U/L Troponin I High Sens 10.2 (0-14) pg/ml Total Protein (6.0-8.3) gm/dl Albumin (3.4-5.0) gm/dl Globulin (2.5-4.0) gm/dl Albumin/Globulin Ratio (0.9-2) Lipase (11-82) U/L Urine Color Urine Appearance (Clear) Urine pH (4.5-7.5) Ur Specific [place] (1.000-1.030) Urine Protein (Negative) Urine Glucose (UA) (Negative) Urine Ketones (Negative) Urine Blood (Negative) Urine Nitrite (Negative) Urine Bilirubin (Negative) Urine Urobilinogen (Negative) Ur Leukocyte Esterase (Negative) Urine WBC (Auto) (0-5) /hpf Urine RBC (Auto) (0-4) /hpf U Hyaline Cast (Auto) (0-5) /lpf U Epithel Cells (Auto) (0-5) /lpf Urine Bacteria (Auto) (Negative) Ur Renal Epithelial Cell Urine Yeast 01/16/23 01/17/23 01/17/23 Range/Units 06:01 05:56 05:56 WBC 12.47 H (4.8-10.8) K/ul RBC 3.67 L (4.20-5.40) M/uL Hgb 11.4 L (12.0-16.0) g/dl Hct 33.7 L (37.0-47.0) % MCV 91.8 (80.0-100.0) fL MCH 31.1 (25.0-34.0) pg MCHC 33.8 (32.0-36.0) g/dL RDW Std Deviation 44.7 (36.4-46.3) fL RDW Coeff of Brandee 13.2 (11.5-14.5) % Plt Count 249 (130-400) K/uL MPV 8.9 L (9.4-12.4) fL Immature Gran % (Auto) % Neut % (Auto) % Lymph % (Auto) % [place] % (Auto) % Eos % (Auto) % Baso % (Auto) % Neut # (Auto) (1.40-6.50) K/uL Lymph # (Auto) (1.2-3.4) K/uL [place] # (Auto) (0.11-0.59) K/uL Eos # (Auto) (0-0.50) K/uL Baso # (Auto) (0-0.2) K/uL Immature Gran # (Auto) (0.01-0.20) K/uL RBC Morphology Sodium 138 137 (136-145) mmol/L Potassium 3.4 L 4.0 (3.5-5.1) mmol/L Chloride 107 105 (98-107) mmol/L Carbon Dioxide 26 28 (21-32) mmol/L Anion Gap 5 4 (3-11) BUN 13 16 (6-23) mg/dl Creatinine 0.81 0.58 L (0.6-1.2) mg/dl Est Cr Clr Drug Dosing 52.2 72.9 ml/min Est GFR ( Amer) 82.9 105.2 ml/min Est GFR (Non-Af Amer) 71.5 90.8 ml/min BUN/Creatinine Ratio 16.0 27.6 H (10-20) Glucose 120 H 119 H (70-99(Fasting)) mg/dl Calcium 7.6 L 7.9 L (8.6-10.3) mg/dl Phosphorus 3.3 D 3.6 (2.5-4.9) mg/dl Magnesium 1.9 1.9 (1.7-2.4) mg/dl Total Bilirubin (0.2-1.0) mg/dl AST (13-39) U/L ALT (7-52) U/L Alkaline Phosphatase (34-104) U/L Troponin I High Sens (0-14) pg/ml Total Protein (6.0-8.3) gm/dl Albumin (3.4-5.0) gm/dl Globulin (2.5-4.0) gm/dl Albumin/Globulin Ratio (0.9-2) Lipase (11-82) U/L Urine Color Urine Appearance (Clear) Urine pH (4.5-7.5) Ur Specific [place] (1.000-1.030) Urine Protein (Negative) Urine Glucose (UA) (Negative) Urine Ketones (Negative) Urine Blood (Negative) Urine Nitrite (Negative) Urine Bilirubin (Negative) Urine Urobilinogen (Negative) Ur Leukocyte Esterase (Negative) Urine WBC (Auto) (0-5) /hpf Urine RBC (Auto) (0-4) /hpf U Hyaline Cast (Auto) (0-5) /lpf U Epithel Cells (Auto) (0-5) /lpf Urine Bacteria (Auto) (Negative) Ur Renal Epithelial Cell Urine Yeast
[2023-01-17] MEDS: POLYETHYLENE (MIRALAX) 17 GM PACK PO SCH (14:43)
[2023-01-17] MEDS ORDERED: PERIPHERAL TPN IV SCH (16:00)
[2023-01-17] MEDS ORDERED: CLINOLIPID 20% IV FAT EMULSION 250 ML IV SCH (16:00)
[2023-01-17] MEDS ORDERED: [UNRECOGNIZED DRUG - OTHER] IV SCH (16:00)
[2023-01-18] MEDS: STOP CLINOLIPID SCH ×2 (00:38→22:19)
[2023-01-18 06:39] LABS: Hematocrit (blood only) 37.5 % (37.0-47.0); Hemoglobin 12.3 g/dl (12.0-16.0); Mean Corpuscular Hgb Conc 32.8 g/dL (32.0-36.0); Mean Corpuscular Volume 94.5 fL (80.0-100.0); Mean Platelet Volume 8.7 fL (9.4-12.4); Platelet Count 222 K/uL (130-400); RDW Coefficient of Variation 13.2 % (11.5-14.5); RDW Standard Deviation 45.5 fL (36.4-46.3); Red Blood Count 3.97 M/uL (4.20-5.40); White Blood Count 9.69 K/ul (4.8-10.8)
[2023-01-18 06:53] LABS: Calcium 8.2 mg/dl (8.6-10.3); Creatinine Clr Calc Pharmacy 67.2 ml/min; Est GFR (African American) 102.4 ml/min; Est GFR (Non-African American) 88.4 ml/min; Magnesium 1.9 mg/dl (1.7-2.4); Phosphorus 3.6 mg/dl (2.5-4.9); Potassium 4.5 mmol/L (3.5-5.1)
--- NOTE | 2023-01-18 07:45 | Hospitalist Progress Note ---
Date of Service January 18, 2023 Assessment & Plan (1) Small bowel obstruction: Plan: 72-year-old female past medical significant for hypertension, Parkinson disease history of bowel obstruction in the past presents with abdominal pain and found to have a high-grade small bowel obstruction. SMALL BOWEL OBSTRUCTION HIGH-GRADE Transition point at mid pelvis General surgery consulted Continue with conservative management approach at this time-bowel rest, IV fluids PPI BID Pt diet was advanced to clears 01/10 evening, developed nausea now back to NPO with sips/chips repeat KUB : persistent SBO appreciate Gen surg recs - recommending exploratory laparotomy, pt declining at this time wishing to continue conservative tx she is starting to have bowel motility Biscodyl suppository x 1 given - had a very small BM on (01/12/23) No abd. pain right now 01/14 NGT placed yesterday and surgery recommended. Pt is now considering surgery. Plan for OR later today. Pt is s/p ex lap w/ adhesions lysis on 01/14 Currently w/ abd. discomfort but otherwise in NAD, NGT placed, suppl. O2 01/17 NGT removed, pt is passing flatus, uses 2L of suppl. O2 01/18 Tolerating clear liquid diet, passing flatus. POSSIBLE ACUTE SINUSITIS Symptoms improved - was treated w/Unasyn Hypokalemia replace and monitor HYPERTENSION Continue home lisinopril Monitor closely PARKINSON'S DISEASE Continue home carbidopa levodopa DVT prophylaxis Lovenox, per surgery FULL CODE (2) HTN (hypertension): (3) Parkinson disease: Admission and Anticipated Discharge Date Admission Date: January 06, 2023 Subjective Pt seen in follow up of SBO, no s/p ex lap w/ adhesion lysis. Currently laying in bed in NAD, reports abd. pain (post-surg.) Surgery following closely, NGT now removed and pt now on clear liquid diet Pt reports she is passing flatus Nose bleed noted. Afrin ordered, lovenox on hold - surgery contacted to make aware Review of Systems Review of Systems: All systems reviewed & are unremarkable except as noted in Subjective Physical Exam Physical Exam: GEN: Thin, petite, F, NAD, A&O x3, NGT removed , + left nostril bleed HEENT: Normocephalic, atraumatic, conjunctivae moist, sclerae anicteric, mucous membranes moist. Lung: Clear to Auscultation bilaterally, no wheezes/rales/rhonchi Heart: Regular rate, regular rhythm, no murmurs Abdomen: minimally distended, mildly tender to palp., +abdominal binder Extremities: No edema Skin: Warm, no rash Results & Data Results & Data Vital Signs (Past 12 Hours) Vital Signs Temp Pulse Pulse Resp BP Pulse Ox O2 Del Method 01/18/23 07:10 36.4 C L 74 16 131/76 96 Nasal Cannula 01/18/23 03:08 36.6 C 72 18 121/70 95 Nasal Cannula 01/18/23 00:59 92 H 01/17/23 23:29 37.0 C 87 18 109/71 94 Nasal Cannula 01/17/23 20:11 Room Air 01/17/23 19:55 36.9 C 89 18 147/81 H 92 Room Air O2 Flow Rate 01/18/23 07:10 2 01/18/23 03:08 2 01/18/23 00:59 01/17/23 23:29 2 01/17/23 20:11 01/17/23 19:55 Laboratory Results 01/18/23 01/18/23 Range/Units 06:11 06:11 WBC 9.69 (4.8-10.8) K/ul RBC 3.97 L (4.20-5.40) M/uL Hgb 12.3 (12.0-16.0) g/dl Hct 37.5 (37.0-47.0) % MCV 94.5 (80.0-100.0) fL MCH 31.0 (25.0-34.0) pg MCHC 32.8 (32.0-36.0) g/dL RDW Std Deviation 45.5 (36.4-46.3) fL RDW Coeff of Brandee 13.2 (11.5-14.5) % Plt Count 222 (130-400) K/uL MPV 8.7 L (9.4-12.4) fL Sodium 138 (136-145) mmol/L Potassium 4.5 (3.5-5.1) mmol/L Chloride 105 (98-107) mmol/L Carbon Dioxide 29 (21-32) mmol/L Anion Gap 4 (3-11) BUN 17 (6-23) mg/dl Creatinine 0.63 (0.6-1.2) mg/dl Est Cr Clr Drug Dosing 67.2 ml/min Est GFR ( Amer) 102.4 ml/min Est GFR (Non-Af Amer) 88.4 ml/min BUN/Creatinine Ratio 27.0 H (10-20) Glucose 118 H (70-99(Fasting)) mg/dl Calcium 8.2 L (8.6-10.3) mg/dl Phosphorus 3.6 (2.5-4.9) mg/dl Magnesium 1.9 (1.7-2.4) mg/dl Medications Administered Current Inpatient Medications Acetaminophen (Acetaminophen 325 Mg Tab) 650 mg PO Q4H PRN PRN Reason: FEVER OR PAIN Stop: 02/08/23 15:38 Last Admin: 01/12/23 17:34 Dose: 650 mg Carbidopa/Levodopa (Carbidopa/Levodopa 25/100mg Tab) 1.5 tab PO TID [facility] Stop: 02/05/23 08:59 Last Admin: 01/17/23 21:53 Dose: 1.5 tab Enoxaparin Sodium (Enoxaparin Inj 40 Mg/0.4 Ml Syr) 40 mg SQ QAM [facility] Stop: 02/16/23 08:59 Last Admin: 01/17/23 08:11 Dose: 40 mg Hydromorphone HCl (Hydromorphone Inj 0.5 Mg/0.5 Ml Syr) 0.5 mg IV Q4H PRN PRN Reason: Pain Stop: 01/20/23 01:29 Last Admin: 01/17/23 21:52 Dose: 0.5 mg Pantoprazole Sodium 40 mg/ (Syringe) 10 mls @ 5 mls/min IV BID [facility] Stop: 02/07/23 17:19 Last Admin: 01/17/23 21:53 Dose: 5 mls/min Promethazine HCl 6.25 mg/ (Sodium Chloride) 50.25 mls @ 201 mls/hr IV Q6H PRN PRN Reason: Nausea And Vomiting Stop: 02/10/23 01:29 Last Infusion: 01/11/23 02:27 Dose: Infused Potassium Chloride/Dextrose/Sod Cl (D5nss + 20meq Kcl) 20 meq in 1,000 mls @ 80 mls/hr IV .[id number] [facility] Stop: 02/05/23 10:59 Last Infusion: 01/18/23 03:10 Dose: Infused Acetaminophen (Ofirmev) 1,000 mg in 100 mls @ 400 mls/hr IV Q8H PRN PRN Reason: Pain Stop: 01/18/23 11:00 Last Infusion: 01/15/23 20:03 Dose: Infused Dextrose (D10w) 1,000 mls @ 0 mls/hr IV .Q0M PRN PRN Reason: protocol (see label comments) Stop: 02/14/23 15:59 Ciprofloxacin (Cipro / D5w) 400 mg in 200 mls @ 100 mls/hr IV Q12H [facility]; Protocol Stop: 01/19/23 08:59 Last Infusion: 01/18/23 00:25 Dose: Infused Amino Acids 1,581 ml/ (Nutrition (Parenteral)) 1,581 mls @ 66 mls/hr IV .[id number] [facility]; Protocol Stop: 01/18/23 15:57 Last Admin: 01/17/23 16:51 Dose: 66 mls/hr Lisinopril (Lisinopril 5 Mg Tab) 5 mg PO DAILY [facility] Stop: 02/05/23 08:59 Last Admin: 01/17/23 08:11 Dose: 5 mg Memantine (Memantine Hcl 5 Mg Tab) 5 mg PO BID [facility] Stop: 02/05/23 08:59 Last Admin: 01/17/23 21:53 Dose: 5 mg Miscellaneous (Stop Clinolipid) 1 each N/A DAILY@2200 [facility] Stop: 02/16/23 21:59 Last Admin: 01/18/23 00:38 Dose: 1 each Miscellaneous Information (Tpn/Ppn Consult Pharmacy) 1 each N/A UD PRN PRN Reason: Consult Stop: 02/13/23 16:02 Multivitamins (Multivitamin Tab) 1 tab PO QAM [facility] Stop: 02/05/23 08:59 Last Admin: 01/16/23 09:45 Dose: Not Given Ondansetron HCl (Ondansetron Inj 2 Mg/Ml 2 Ml Vial) 4 mg IV Q6H PRN PRN Reason: Nausea Stop: 02/05/23 01:29 Last Admin: 01/17/23 08:10 Dose: 4 mg Polyethylene Glycol (Polyethylene (Miralax) 17 Gm Pack) 17 gm PO DAILY [facility] Stop: 02/16/23 13:29 Last Admin: 01/17/23 14:43 Dose: 17 gm
[2023-01-18] MEDS: CIPROFLOXACIN / D5W 400 MG/200 ML BAG IV SCH ×2 (08:04→20:43)
[2023-01-18] MEDS: PANTOprazole 40 MG in SYRINGE 0 ML IV SCH (08:04)
[2023-01-18] MEDS: CARBIDOPA/LEVODOPA 25/100MG TAB PO SCH ×3 (08:04→20:44)
[2023-01-18] MEDS: ENOXAPARIN INJ 40 MG/0.4 ML SYR SQ SCH (08:05)
[2023-01-18] MEDS: POLYETHYLENE (MIRALAX) 17 GM PACK PO SCH (08:05)
[2023-01-18] MEDS: MEMANTINE HCL 5 MG TAB PO SCH ×2 (08:05→20:45)
[2023-01-18] MEDS: lisinopril 5 MG TAB PO SCH (08:05)
--- NOTE | 2023-01-18 09:27 | Surgery Progress Note ---
Date of Service January 18, 2023 Assessment & Plan (1) Small bowel obstruction: Plan: doing well con't ngt PPN OOB begin lovenox 01/17/2023 1:[address] Quinn F/U S/P Exploratory Laparotomy, Lysis of Adhesions, POD 3 pt is doing fine, WBC 12,000. start cipro pulled NG tube, D/C wilkinson miralax OOB repeat labs tomorrow will F/U 01/18/2023 9:[address] Quinn F/U S/P Exploratory Laparotomy, Lysis of Adhesions, POD 4 pt is doing better, WBC 9.6 keep clear diet today, OT, PT OOB will F/U Admission and Anticipated Discharge Date Admission Date: January 06, 2023 Supervising Physician Co-Signing Physician Notes Pt seen and examined by me, care coordinated w/ Yahaira Scott PA-C, pls refer to her note above for further detail. Today pt tells me she is not passing flatus today or overnight, also no BM. However denies abd. pain. Also no nausea or vomiting. Yesterday not doing well after trying clear liquid diet. Today, surgery service is recommending ex lap, pt declines and wants to continue w/ conservative management. Potassium replaced. IVF. Cont. to closely monitor. Plan as above. MD Mary Subjective Pt seen in follow up of SBO, no s/p ex lap w/ adhesion lysis. Currently laying in bed in NAD, reports abd. pain (post-surg.) Surgery following closely, NGT now removed Pt reports she is passing flatus 01/18/2023 9:23 AM, DR. Quinn F/U S/P exp lap and lysis of adhesion. POD 4 pt is doing better, passed more flatus. no BM yet, she tolerated clear diet. pt denies nausea, no vomiting. no fever. Review of Systems Constitutional: no fever and no chills Respiratory: no dyspnea Cardiovascular: no chest pain Gastrointestinal: + abdominal pain; no nausea and no vomiting Neurologic: no localized weakness Psychiatric: no behavioral changes Physical Exam Constitutional: WD/WN, vitals as above cooperative, comfortable and + lethargic; no acute distress and not diaphoretic Eyes: PERRL, conjunctivae normal, anicteric sclerae Neck: trachea midline, no thyromegaly Respiratory: normal respiratory effort, lungs clear to auscultation normal respiratory effort; no respiratory distress Cardiovascular: RRR, no murmur, no edema Gastrointestinal (Abdomen): soft, mild tenderness at incision site, no rebound pain, no distend, the incision intact, no redness, BS +. Musculoskeletal: no edema on legs. Neurologic: patellar DTR's 2+ bilat, sensation intact Psychiatric: A+Ox3, euthymic affect Orientation: alert Results & Data Vital Signs (Past 12 Hours) Vital Signs Temp Pulse Pulse Resp BP Pulse Ox O2 Del Method 01/18/23 07:10 36.4 C L 74 16 131/76 96 Nasal Cannula 01/18/23 03:08 36.6 C 72 18 121/70 95 Nasal Cannula 01/18/23 00:59 92 H 01/17/23 23:29 37.0 C 87 18 109/71 94 Nasal Cannula O2 Flow Rate 01/18/23 07:10 2 01/18/23 03:08 2 01/18/23 00:59 01/17/23 23:29 2 Laboratory Results Lab Results 01/05/23 01/05/23 01/05/23 Range/Units 18:48 18:48 18:57 WBC 9.95 (4.8-10.8) K/ul RBC 4.39 (4.20-5.40) M/uL Hgb 13.7 (12.0-16.0) g/dl Hct 41.4 (37.0-47.0) % MCV 94.3 (80.0-100.0) fL MCH 31.2 (25.0-34.0) pg MCHC 33.1 (32.0-36.0) g/dL RDW Std Deviation 44.9 (36.4-46.3) fL RDW Coeff of Brandee 12.9 (11.5-14.5) % Plt Count 176 (130-400) K/uL MPV 9.4 (9.4-12.4) fL Immature Gran % (Auto) 0.3 % Neut % (Auto) 82.5 % Lymph % (Auto) 9.9 % [place] % (Auto) 6.0 % Eos % (Auto) 0.8 % Baso % (Auto) 0.5 % Neut # (Auto) 8.20 H (1.40-6.50) K/uL Lymph # (Auto) 0.99 L (1.2-3.4) K/uL [place] # (Auto) 0.60 H (0.11-0.59) K/uL Eos # (Auto) 0.08 (0-0.50) K/uL Baso # (Auto) 0.05 (0-0.2) K/uL Immature Gran # (Auto) 0.03 (0.01-0.20) K/uL RBC Morphology Sodium 137 (136-145) mmol/L Potassium 4.3 (3.5-5.1) mmol/L Chloride 104 (98-107) mmol/L Carbon Dioxide 26 (21-32) mmol/L Anion Gap 7 (3-11) BUN 27 H (6-23) mg/dl Creatinine 1.20 (0.6-1.2) mg/dl Est Cr Clr Drug Dosing 35.1 ml/min Est GFR ( Amer) 51.6 ml/min Est GFR (Non-Af Amer) 44.5 ml/min BUN/Creatinine Ratio 22.5 H (10-20) Glucose 124 H (70-99(Fasting)) mg/dl Calcium 10.0 (8.6-10.3) mg/dl Phosphorus (2.5-4.9) mg/dl Magnesium (1.7-2.4) mg/dl Total Bilirubin 0.6 (0.2-1.0) mg/dl AST 19 (13-39) U/L ALT 3 L (7-52) U/L Alkaline Phosphatase 82 (34-104) U/L Troponin I High Sens (0-14) pg/ml Total Protein 8.0 (6.0-8.3) gm/dl Albumin 4.7 (3.4-5.0) gm/dl Globulin 3.3 (2.5-4.0) gm/dl Albumin/Globulin Ratio 1.4 (0.9-2) Lipase 17 (11-82) U/L Urine Color Dark Yellow Urine Appearance Cloudy A (Clear) Urine pH 5.5 (4.5-7.5) Ur Specific [place] 1.036 H (1.000-1.030) Urine Protein 1+ H (Negative) Urine Glucose (UA) Negative (Negative) Urine Ketones 1+ H (Negative) Urine Blood Negative (Negative) Urine Nitrite Negative (Negative) Urine Bilirubin 1+ H (Negative) Urine Urobilinogen Negative (Negative) Ur Leukocyte Esterase Trace H (Negative) Urine WBC (Auto) 5-10 H (0-5) /hpf Urine RBC (Auto) 0-4 (0-4) /hpf U Hyaline Cast (Auto) 1-5 (0-5) /lpf U Epithel Cells (Auto) >30 H (0-5) /lpf Urine Bacteria (Auto) Negative (Negative) Ur Renal Epithelial Cell Not Reportable Urine Yeast Not Reportable 01/06/23 01/06/23 01/08/23 Range/Units 07:25 07:25 11:15 WBC 11.37 H (4.8-10.8) K/ul RBC 4.19 L (4.20-5.40) M/uL Hgb 13.1 (12.0-16.0) g/dl Hct 39.6 (37.0-47.0) % MCV 94.5 (80.0-100.0) fL MCH 31.3 (25.0-34.0) pg MCHC 33.1 (32.0-36.0) g/dL RDW Std Deviation 44.7 (36.4-46.3) fL RDW Coeff of Brandee 13.1 (11.5-14.5) % Plt Count 155 (130-400) K/uL MPV 9.6 (9.4-12.4) fL Immature Gran % (Auto) 0.4 % Neut % (Auto) 87.8 % Lymph % (Auto) 5.3 % [place] % (Auto) 6.0 % Eos % (Auto) 0.2 % Baso % (Auto) 0.3 % Neut # (Auto) 10.00 H (1.40-6.50) K/uL Lymph # (Auto) 0.60 L (1.2-3.4) K/uL [place] # (Auto) 0.68 H (0.11-0.59) K/uL Eos # (Auto) 0.02 (0-0.50) K/uL Baso # (Auto) 0.03 (0-0.2) K/uL Immature Gran # (Auto) 0.04 (0.01-0.20) K/uL RBC Morphology Sodium 136 144 (136-145) mmol/L Potassium 4.1 3.3 L (3.5-5.1) mmol/L Chloride 107 104 (98-107) mmol/L Carbon Dioxide 24 31 (21-32) mmol/L Anion Gap 5 9 (3-11) BUN 20 28 H (6-23) mg/dl Creatinine 0.97 1.26 H (0.6-1.2) mg/dl Est Cr Clr Drug Dosing 43.6 33.6 ml/min Est GFR ( Amer) 66.7 48.6 ml/min Est GFR (Non-Af Amer) 57.5 41.9 ml/min BUN/Creatinine Ratio 20.6 H 22.2 H (10-20) Glucose 192 H 130 H (70-99(Fasting)) mg/dl Calcium 8.9 9.5 (8.6-10.3) mg/dl Phosphorus (2.5-4.9) mg/dl Magnesium 1.9 1.9 (1.7-2.4) mg/dl Total Bilirubin (0.2-1.0) mg/dl AST (13-39) U/L ALT (7-52) U/L Alkaline Phosphatase (34-104) U/L Troponin I High Sens (0-14) pg/ml Total Protein (6.0-8.3) gm/dl Albumin (3.4-5.0) gm/dl Globulin (2.5-4.0) gm/dl Albumin/Globulin Ratio (0.9-2) Lipase (11-82) U/L Urine Color Urine Appearance (Clear) Urine pH (4.5-7.5) Ur Specific [place] (1.000-1.030) Urine Protein (Negative) Urine Glucose (UA) (Negative) Urine Ketones (Negative) Urine Blood (Negative) Urine Nitrite (Negative) Urine Bilirubin (Negative) Urine Urobilinogen (Negative) Ur Leukocyte Esterase (Negative) Urine WBC (Auto) (0-5) /hpf Urine RBC (Auto) (0-4) /hpf U Hyaline Cast (Auto) (0-5) /lpf U Epithel Cells (Auto) (0-5) /lpf Urine Bacteria (Auto) (Negative) Ur Renal Epithelial Cell Urine Yeast 01/09/23 01/10/23 01/11/23 Range/Units 06:25 07:05 06:21 WBC (4.8-10.8) K/ul RBC (4.20-5.40) M/uL Hgb (12.0-16.0) g/dl Hct (37.0-47.0) % MCV (80.0-100.0) fL MCH (25.0-34.0) pg MCHC (32.0-36.0) g/dL RDW Std Deviation (36.4-46.3) fL RDW Coeff of Brandee (11.5-14.5) % Plt Count (130-400) K/uL MPV (9.4-12.4) fL Immature Gran % (Auto) % Neut % (Auto) % Lymph % (Auto) % [place] % (Auto) % Eos % (Auto) % Baso % (Auto) % Neut # (Auto) (1.40-6.50) K/uL Lymph # (Auto) (1.2-3.4) K/uL [place] # (Auto) (0.11-0.59) K/uL Eos # (Auto) (0-0.50) K/uL Baso # (Auto) (0-0.2) K/uL Immature Gran # (Auto) (0.01-0.20) K/uL RBC Morphology Sodium 139 141 143 (136-145) mmol/L Potassium 3.7 3.7 3.4 L (3.5-5.1) mmol/L Chloride 105 108 H 111 H (98-107) mmol/L Carbon Dioxide 27 25 24 (21-32) mmol/L Anion Gap 7 8 8 (3-11) BUN 34 H 36 H 30 H (6-23) mg/dl Creatinine 1.02 0.93 0.90 (0.6-1.2) mg/dl Est Cr Clr Drug Dosing 41.5 45.5 47.0 ml/min Est GFR ( Amer) 62.8 70.2 73.0 ml/min Est GFR (Non-Af Amer) 54.1 60.5 63.0 ml/min BUN/Creatinine Ratio 33.3 H 38.7 H 33.3 H (10-20) Glucose 131 H 135 H 127 H (70-99(Fasting)) mg/dl Calcium 8.8 8.8 8.4 L (8.6-10.3) mg/dl Phosphorus (2.5-4.9) mg/dl Magnesium 1.9 2.1 2.1 (1.7-2.4) mg/dl Total Bilirubin (0.2-1.0) mg/dl AST (13-39) U/L ALT (7-52) U/L Alkaline Phosphatase (34-104) U/L Troponin I High Sens (0-14) pg/ml Total Protein (6.0-8.3) gm/dl Albumin (3.4-5.0) gm/dl Globulin (2.5-4.0) gm/dl Albumin/Globulin Ratio (0.9-2) Lipase (11-82) U/L Urine Color Urine Appearance (Clear) Urine pH (4.5-7.5) Ur Specific [place] (1.000-1.030) Urine Protein (Negative) Urine Glucose (UA) (Negative) Urine Ketones (Negative) Urine Blood (Negative) Urine Nitrite (Negative) Urine Bilirubin (Negative) Urine Urobilinogen (Negative) Ur Leukocyte Esterase (Negative) Urine WBC (Auto) (0-5) /hpf Urine RBC (Auto) (0-4) /hpf U Hyaline Cast (Auto) (0-5) /lpf U Epithel Cells (Auto) (0-5) /lpf Urine Bacteria (Auto) (Negative) Ur Renal Epithelial Cell Urine Yeast 01/12/23 01/13/23 01/13/23 Range/Units 08:33 07:18 07:18 WBC 5.77 (4.8-10.8) K/ul RBC 4.00 L (4.20-5.40) M/uL Hgb 12.2 (12.0-16.0) g/dl Hct 37.2 (37.0-47.0) % MCV 93.0 (80.0-100.0) fL MCH 30.5 (25.0-34.0) pg MCHC 32.8 (32.0-36.0) g/dL RDW Std Deviation 45.9 (36.4-46.3) fL RDW Coeff of Brandee 13.4 (11.5-14.5) % Plt Count 203 (130-400) K/uL MPV 9.4 (9.4-12.4) fL Immature Gran % (Auto) % Neut % (Auto) % Lymph % (Auto) % [place] % (Auto) % Eos % (Auto) % Baso % (Auto) % Neut # (Auto) (1.40-6.50) K/uL Lymph # (Auto) (1.2-3.4) K/uL [place] # (Auto) (0.11-0.59) K/uL Eos # (Auto) (0-0.50) K/uL Baso # (Auto) (0-0.2) K/uL Immature Gran # (Auto) (0.01-0.20) K/uL RBC Morphology Sodium 143 141 (136-145) mmol/L Potassium 3.4 L 3.6 (3.5-5.1) mmol/L Chloride 112 H 112 H (98-107) mmol/L Carbon Dioxide 25 23 (21-32) mmol/L Anion Gap 6 6 (3-11) BUN 20 16 (6-23) mg/dl Creatinine 0.93 0.88 (0.6-1.2) mg/dl Est Cr Clr Drug Dosing 45.5 48.1 ml/min Est GFR ( Amer) 70.2 75.0 ml/min Est GFR (Non-Af Amer) 60.5 64.7 ml/min BUN/Creatinine Ratio 21.5 H 18.2 (10-20) Glucose 118 H 118 H (70-99(Fasting)) mg/dl Calcium 8.5 L 8.4 L (8.6-10.3) mg/dl Phosphorus (2.5-4.9) mg/dl Magnesium 2.1 1.9 (1.7-2.4) mg/dl Total Bilirubin (0.2-1.0) mg/dl AST (13-39) U/L ALT (7-52) U/L Alkaline Phosphatase (34-104) U/L Troponin I High Sens (0-14) pg/ml Total Protein (6.0-8.3) gm/dl Albumin (3.4-5.0) gm/dl Globulin (2.5-4.0) gm/dl Albumin/Globulin Ratio (0.9-2) Lipase (11-82) U/L Urine Color Urine Appearance (Clear) Urine pH (4.5-7.5) Ur Specific [place] (1.000-1.030) Urine Protein (Negative) Urine Glucose (UA) (Negative) Urine Ketones (Negative) Urine Blood (Negative) Urine Nitrite (Negative) Urine Bilirubin (Negative) Urine Urobilinogen (Negative) Ur Leukocyte Esterase (Negative) Urine WBC (Auto) (0-5) /hpf Urine RBC (Auto) (0-4) /hpf U Hyaline Cast (Auto) (0-5) /lpf U Epithel Cells (Auto) (0-5) /lpf Urine Bacteria (Auto) (Negative) Ur Renal Epithelial Cell Urine Yeast 01/14/23 01/14/23 01/15/23 Range/Units 06:34 06:34 06:48 WBC 11.24 H 16.57 H (4.8-10.8) K/ul RBC 3.45 L 3.80 L (4.20-5.40) M/uL Hgb 10.6 L 11.8 L (12.0-16.0) g/dl Hct 33.0 L 35.4 L (37.0-47.0) % MCV 95.7 93.2 (80.0-100.0) fL MCH 30.7 31.1 (25.0-34.0) pg MCHC 32.1 33.3 (32.0-36.0) g/dL RDW Std Deviation 47.6 H 45.1 (36.4-46.3) fL RDW Coeff of Brandee 13.6 13.2 (11.5-14.5) % Plt Count 198 237 (130-400) K/uL MPV 9.1 L 8.9 L (9.4-12.4) fL Immature Gran % (Auto) 0.8 % Neut % (Auto) 86.0 % Lymph % (Auto) 8.0 % [place] % (Auto) 4.0 % Eos % (Auto) 0.8 % Baso % (Auto) 0.4 % Neut # (Auto) 9.66 H (1.40-6.50) K/uL Lymph # (Auto) 0.90 L (1.2-3.4) K/uL [place] # (Auto) 0.45 (0.11-0.59) K/uL Eos # (Auto) 0.09 (0-0.50) K/uL Baso # (Auto) 0.05 (0-0.2) K/uL Immature Gran # (Auto) 0.09 (0.01-0.20) K/uL RBC Morphology Unremarkable Sodium 142 (136-145) mmol/L Potassium 3.6 (3.5-5.1) mmol/L Chloride 116 H (98-107) mmol/L Carbon Dioxide 22 (21-32) mmol/L Anion Gap 4 (3-11) BUN 11 (6-23) mg/dl Creatinine 0.96 (0.6-1.2) mg/dl Est Cr Clr Drug Dosing 44.1 ml/min Est GFR ( Amer) 67.5 ml/min Est GFR (Non-Af Amer) 58.3 ml/min BUN/Creatinine Ratio 11.5 (10-20) Glucose 111 H (70-99(Fasting)) mg/dl Calcium 7.7 L (8.6-10.3) mg/dl Phosphorus 3.0 (2.5-4.9) mg/dl Magnesium 1.7 (1.7-2.4) mg/dl Total Bilirubin 0.5 (0.2-1.0) mg/dl AST 13 (13-39) U/L ALT 7 (7-52) U/L Alkaline Phosphatase 46 (34-104) U/L Troponin I High Sens (0-14) pg/ml Total Protein 4.7 L (6.0-8.3) gm/dl Albumin 2.4 L (3.4-5.0) gm/dl Globulin 2.3 L (2.5-4.0) gm/dl Albumin/Globulin Ratio 1.0 (0.9-2) Lipase (11-82) U/L Urine Color Urine Appearance (Clear) Urine pH (4.5-7.5) Ur Specific [place] (1.000-1.030) Urine Protein (Negative) Urine Glucose (UA) (Negative) Urine Ketones (Negative) Urine Blood (Negative) Urine Nitrite (Negative) Urine Bilirubin (Negative) Urine Urobilinogen (Negative) Ur Leukocyte Esterase (Negative) Urine WBC (Auto) (0-5) /hpf Urine RBC (Auto) (0-4) /hpf U Hyaline Cast (Auto) (0-5) /lpf U Epithel Cells (Auto) (0-5) /lpf Urine Bacteria (Auto) (Negative) Ur Renal Epithelial Cell Urine Yeast 01/15/23 01/15/23 01/16/23 Range/Units 06:48 10:21 06:01 WBC 15.37 H (4.8-10.8) K/ul RBC 3.63 L (4.20-5.40) M/uL Hgb 11.2 L (12.0-16.0) g/dl Hct 34.1 L (37.0-47.0) % MCV 93.9 (80.0-100.0) fL MCH 30.9 (25.0-34.0) pg MCHC 32.8 (32.0-36.0) g/dL RDW Std Deviation 46.1 (36.4-46.3) fL RDW Coeff of Brandee 13.5 (11.5-14.5) % Plt Count 240 (130-400) K/uL MPV 8.8 L (9.4-12.4) fL Immature Gran % (Auto) % Neut % (Auto) % Lymph % (Auto) % [place] % (Auto) % Eos % (Auto) % Baso % (Auto) % Neut # (Auto) (1.40-6.50) K/uL Lymph # (Auto) (1.2-3.4) K/uL [place] # (Auto) (0.11-0.59) K/uL Eos # (Auto) (0-0.50) K/uL Baso # (Auto) (0-0.2) K/uL Immature Gran # (Auto) (0.01-0.20) K/uL RBC Morphology Sodium 139 (136-145) mmol/L Potassium 4.0 (3.5-5.1) mmol/L Chloride 111 H (98-107) mmol/L Carbon Dioxide 22 (21-32) mmol/L Anion Gap 6 (3-11) BUN 9 (6-23) mg/dl Creatinine 0.98 (0.6-1.2) mg/dl Est Cr Clr Drug Dosing 43.2 ml/min Est GFR ( Amer) 65.9 ml/min Est GFR (Non-Af Amer) 56.8 ml/min BUN/Creatinine Ratio 9.2 L (10-20) Glucose 105 H (70-99(Fasting)) mg/dl Calcium 7.6 L (8.6-10.3) mg/dl Phosphorus 4.6 D (2.5-4.9) mg/dl Magnesium 1.7 (1.7-2.4) mg/dl Total Bilirubin (0.2-1.0) mg/dl AST (13-39) U/L ALT (7-52) U/L Alkaline Phosphatase (34-104) U/L Troponin I High Sens 10.2 (0-14) pg/ml Total Protein (6.0-8.3) gm/dl Albumin (3.4-5.0) gm/dl Globulin (2.5-4.0) gm/dl Albumin/Globulin Ratio (0.9-2) Lipase (11-82) U/L Urine Color Urine Appearance (Clear) Urine pH (4.5-7.5) Ur Specific [place] (1.000-1.030) Urine Protein (Negative) Urine Glucose (UA) (Negative) Urine Ketones (Negative) Urine Blood (Negative) Urine Nitrite (Negative) Urine Bilirubin (Negative) Urine Urobilinogen (Negative) Ur Leukocyte Esterase (Negative) Urine WBC (Auto) (0-5) /hpf Urine RBC (Auto) (0-4) /hpf U Hyaline Cast (Auto) (0-5) /lpf U Epithel Cells (Auto) (0-5) /lpf Urine Bacteria (Auto) (Negative) Ur Renal Epithelial Cell Urine Yeast 01/16/23 01/17/23 01/17/23 Range/Units 06:01 05:56 05:56 WBC 12.47 H (4.8-10.8) K/ul RBC 3.67 L (4.20-5.40) M/uL Hgb 11.4 L (12.0-16.0) g/dl Hct 33.7 L (37.0-47.0) % MCV 91.8 (80.0-100.0) fL MCH 31.1 (25.0-34.0) pg MCHC 33.8 (32.0-36.0) g/dL RDW Std Deviation 44.7 (36.4-46.3) fL RDW Coeff of Brandee 13.2 (11.5-14.5) % Plt Count 249 (130-400) K/uL MPV 8.9 L (9.4-12.4) fL Immature Gran % (Auto) % Neut % (Auto) % Lymph % (Auto) % [place] % (Auto) % Eos % (Auto) % Baso % (Auto) % Neut # (Auto) (1.40-6.50) K/uL Lymph # (Auto) (1.2-3.4) K/uL [place] # (Auto) (0.11-0.59) K/uL Eos # (Auto) (0-0.50) K/uL Baso # (Auto) (0-0.2) K/uL Immature Gran # (Auto) (0.01-0.20) K/uL RBC Morphology Sodium 138 137 (136-145) mmol/L Potassium 3.4 L 4.0 (3.5-5.1) mmol/L Chloride 107 105 (98-107) mmol/L Carbon Dioxide 26 28 (21-32) mmol/L Anion Gap 5 4 (3-11) BUN 13 16 (6-23) mg/dl Creatinine 0.81 0.58 L (0.6-1.2) mg/dl Est Cr Clr Drug Dosing 52.2 72.9 ml/min Est GFR ( Amer) 82.9 105.2 ml/min Est GFR (Non-Af Amer) 71.5 90.8 ml/min BUN/Creatinine Ratio 16.0 27.6 H (10-20) Glucose 120 H 119 H (70-99(Fasting)) mg/dl Calcium 7.6 L 7.9 L (8.6-10.3) mg/dl Phosphorus 3.3 D 3.6 (2.5-4.9) mg/dl Magnesium 1.9 1.9 (1.7-2.4) mg/dl Total Bilirubin (0.2-1.0) mg/dl AST (13-39) U/L ALT (7-52) U/L Alkaline Phosphatase (34-104) U/L Troponin I High Sens (0-14) pg/ml Total Protein (6.0-8.3) gm/dl Albumin (3.4-5.0) gm/dl Globulin (2.5-4.0) gm/dl Albumin/Globulin Ratio (0.9-2) Lipase (11-82) U/L Urine Color Urine Appearance (Clear) Urine pH (4.5-7.5) Ur Specific [place] (1.000-1.030) Urine Protein (Negative) Urine Glucose (UA) (Negative) Urine Ketones (Negative) Urine Blood (Negative) Urine Nitrite (Negative) Urine Bilirubin (Negative) Urine Urobilinogen (Negative) Ur Leukocyte Esterase (Negative) Urine WBC (Auto) (0-5) /hpf Urine RBC (Auto) (0-4) /hpf U Hyaline Cast (Auto) (0-5) /lpf U Epithel Cells (Auto) (0-5) /lpf Urine Bacteria (Auto) (Negative) Ur Renal Epithelial Cell Urine Yeast 01/18/23 01/18/23 Range/Units 06:11 06:11 WBC 9.69 (4.8-10.8) K/ul RBC 3.97 L (4.20-5.40) M/uL Hgb 12.3 (12.0-16.0) g/dl Hct 37.5 (37.0-47.0) % MCV 94.5 (80.0-100.0) fL MCH 31.0 (25.0-34.0) pg MCHC 32.8 (32.0-36.0) g/dL RDW Std Deviation 45.5 (36.4-46.3) fL RDW Coeff of Brandee 13.2 (11.5-14.5) % Plt Count 222 (130-400) K/uL MPV 8.7 L (9.4-12.4) fL Immature Gran % (Auto) % Neut % (Auto) % Lymph % (Auto) % [place] % (Auto) % Eos % (Auto) % Baso % (Auto) % Neut # (Auto) (1.40-6.50) K/uL Lymph # (Auto) (1.2-3.4) K/uL [place] # (Auto) (0.11-0.59) K/uL Eos # (Auto) (0-0.50) K/uL Baso # (Auto) (0-0.2) K/uL Immature Gran # (Auto) (0.01-0.20) K/uL RBC Morphology Sodium 138 (136-145) mmol/L Potassium 4.5 (3.5-5.1) mmol/L Chloride 105 (98-107) mmol/L Carbon Dioxide 29 (21-32) mmol/L Anion Gap 4 (3-11) BUN 17 (6-23) mg/dl Creatinine 0.63 (0.6-1.2) mg/dl Est Cr Clr Drug Dosing 67.2 ml/min Est GFR ( Amer) 102.4 ml/min Est GFR (Non-Af Amer) 88.4 ml/min BUN/Creatinine Ratio 27.0 H (10-20) Glucose 118 H (70-99(Fasting)) mg/dl Calcium 8.2 L (8.6-10.3) mg/dl Phosphorus 3.6 (2.5-4.9) mg/dl Magnesium 1.9 (1.7-2.4) mg/dl Total Bilirubin (0.2-1.0) mg/dl AST (13-39) U/L ALT (7-52) U/L Alkaline Phosphatase (34-104) U/L Troponin I High Sens (0-14) pg/ml Total Protein (6.0-8.3) gm/dl Albumin (3.4-5.0) gm/dl Globulin (2.5-4.0) gm/dl Albumin/Globulin Ratio (0.9-2) Lipase (11-82) U/L Urine Color Urine Appearance (Clear) Urine pH (4.5-7.5) Ur Specific [place] (1.000-1.030) Urine Protein (Negative) Urine Glucose (UA) (Negative) Urine Ketones (Negative) Urine Blood (Negative) Urine Nitrite (Negative) Urine Bilirubin (Negative) Urine Urobilinogen (Negative) Ur Leukocyte Esterase (Negative) Urine WBC (Auto) (0-5) /hpf Urine RBC (Auto) (0-4) /hpf U Hyaline Cast (Auto) (0-5) /lpf U Epithel Cells (Auto) (0-5) /lpf Urine Bacteria (Auto) (Negative) Ur Renal Epithelial Cell Urine Yeast
[2023-01-18] MEDS ORDERED: OXYMETAZOLINE 0.05% 30 ML BTL ONE (10:30)
[2023-01-18] MEDS ORDERED: CLINOLIPID 20% IV FAT EMULSION 250 ML IV SCH (16:00)
[2023-01-18] MEDS ORDERED: PERIPHERAL TPN IV SCH (16:00)
[2023-01-18] MEDS ORDERED: [UNRECOGNIZED DRUG - OTHER] IV SCH (16:00)
[2023-01-18] MEDS: HYDROmorphone INJ 0.5 MG/0.5 ML SYR IV PRN (19:35)
[2023-01-19 07:25] LABS: Hematocrit (blood only) 35.2 % (37.0-47.0); Hemoglobin 11.6 g/dl (12.0-16.0); Mean Corpuscular Hemoglobin 30.9 pg (25.0-34.0); Mean Corpuscular Volume 93.9 fL (80.0-100.0); Mean Platelet Volume 8.9 fL (9.4-12.4); Platelet Count 220 K/uL (130-400); RDW Coefficient of Variation 13.3 % (11.5-14.5); RDW Standard Deviation 45.5 fL (36.4-46.3); Red Blood Count 3.75 M/uL (4.20-5.40); White Blood Count 7.75 K/ul (4.8-10.8)
[2023-01-19 07:38] LABS: Calcium 8.3 mg/dl (8.6-10.3); Creatinine Clr Calc Pharmacy 70.5 ml/min; Est GFR (African American) 104.1 ml/min; Est GFR (Non-African American) 89.8 ml/min; Magnesium 1.9 mg/dl (1.7-2.4); Potassium 4.3 mmol/L (3.5-5.1)
[2023-01-19] MEDS: CARBIDOPA/LEVODOPA 25/100MG TAB PO SCH ×3 (09:07→20:36)
[2023-01-19] MEDS: lisinopril 5 MG TAB PO SCH (09:07)
[2023-01-19] MEDS: POLYETHYLENE (MIRALAX) 17 GM PACK PO SCH (09:07)
[2023-01-19] MEDS: MEMANTINE HCL 5 MG TAB PO SCH ×2 (09:07→20:36)
--- NOTE | 2023-01-19 09:16 | XRay Report ---
XR chest 1V portable CLINICAL HISTORY: pulmonary congestion, pleural effusion TECHNIQUE: Single frontal radiograph of the chest was obtained. Comparison: Comparison is made to chest radiograph 01/15/2023 FINDINGS: No lines and tubes are seen. The cardiomediastinal silhouette is normal. The lungs are clear. Small l eft pleural effusion is seen. IMPRESSION: Small left pleural effusion. ACT 112: Negative or not required by law. Electronically signed by: Milo Lyles M.D. 01/19/2023 9:14 AM
--- NOTE | 2023-01-19 13:04 | Surgery Progress Note ---
Date of Service January 19, 2023 Assessment & Plan (1) Small bowel obstruction: Plan: doing well con't ngt PPN OOB begin lovenox 01/17/2023 1:[address] Quinn F/U S/P Exploratory Laparotomy, Lysis of Adhesions, POD 3 pt is doing fine, WBC 12,000. start cipro pulled NG tube, D/C wilkinson miralax OOB repeat labs tomorrow will F/U 01/18/2023 9:[address] Quinn F/U S/P Exploratory Laparotomy, Lysis of Adhesions, POD 4 pt is doing better, WBC 9.6 keep clear diet today, OT, PT OOB will F/U 01/19/2023 1:[address] Quinn F/U S/P Exploratory Laparotomy, Lysis of Adhesions, POD 5 pt is doing better, passed flatus full liquid diet today, D/C PPN, stop cipro consult case sealer possible D/C snf on Tuesday. OOB will F/U Admission and Anticipated Discharge Date Admission Date: January 06, 2023 Supervising Physician Co-Signing Physician Notes Pt seen and examined by me, care coordinated w/ Yahaira Scott PA-C, pls refer to her note above for further detail. Today pt tells me she is not passing flatus today or overnight, also no BM. However denies abd. pain. Also no nausea or vomiting. Yesterday not doing well after trying clear liquid diet. Today, surgery service is recommending ex lap, pt declines and wants to continue w/ conservative management. Potassium replaced. IVF. Cont. to closely monitor. Plan as above. MD Mary Subjective Pt seen in follow up of SBO, no s/p ex lap w/ adhesion lysis. Currently laying in bed in NAD, reports abd. pain (post-surg.) Surgery following closely, NGT now removed and pt now on clear liquid diet Pt reports she is passing flatus Nose bleed noted. Afrin ordered, lovenox on hold - surgery contacted to make aware 01/19/2023 12:59PM Dr. Quinn pt is doing better, passed flatus, no abdominal pain, tolerated clear diet, no nausea, no vomiting, no fever. pt just had PT, she walked on hallway. Review of Systems Constitutional: no fever and no chills Respiratory: no dyspnea Cardiovascular: no chest pain Gastrointestinal: + abdominal pain; no nausea and no vomiting Neurologic: no localized weakness Psychiatric: no behavioral changes Physical Exam Constitutional: WD/WN, vitals as above cooperative, comfortable and + ray rgic; no acute distress and not diaphoretic Eyes: PERRL, conjunctivae normal, anicteric sclerae Neck: trachea midline, no thyromegaly Respiratory: normal respiratory effort, lungs clear to auscultation normal respiratory effort; no respiratory distress Cardiovascular: RRR, no murmur, no edema Gastrointestinal (Abdomen): soft, NT, Nd , the incision intact. BS +. Neurologic: patellar DTR's 2+ bilat, sensation intact Psychiatric: A+Ox3, euthymic affect Orientation: alert Results & Data Vital Signs (Past 12 Hours) Vital Signs Temp Pulse Pulse Resp BP Pulse Ox O2 Del Method 01/19/23 12:45 36.6 C 65 16 126/64 95 Room Air 01/19/23 07:00 76 01/19/23 07:26 36.4 C L 77 18 121/77 99 Nasal Cannula 01/19/23 04:15 36.3 C L 71 20 119/74 98 Nasal Cannula O2 Flow Rate 01/19/23 12:45 01/19/23 07:00 01/19/23 07:26 2 01/19/23 04:15 2 Laboratory Results Lab Results 01/05/23 01/05/23 01/05/23 Range/Units 18:48 18:48 18:57 WBC 9.95 (4.8-10.8) K/ul RBC 4.39 (4.20-5.40) M/uL Hgb 13.7 (12.0-16.0) g/dl Hct 41.4 (37.0-47.0) % MCV 94.3 (80.0-100.0) fL MCH 31.2 (25.0-34.0) pg MCHC 33.1 (32.0-36.0) g/dL RDW Std Deviation 44.9 (36.4-46.3) fL RDW Coeff of Brandee 12.9 (11.5-14.5) % Plt Count 176 (130-400) K/uL MPV 9.4 (9.4-12.4) fL Immature Gran % (Auto) 0.3 % Neut % (Auto) 82.5 % Lymph % (Auto) 9.9 % [place] % (Auto) 6.0 % Eos % (Auto) 0.8 % Baso % (Auto) 0.5 % Neut # (Auto) 8.20 H (1.40-6.50) K/uL Lymph # (Auto) 0.99 L (1.2-3.4) K/uL [place] # (Auto) 0.60 H (0.11-0.59) K/uL Eos # (Auto) 0.08 (0-0.50) K/uL Baso # (Auto) 0.05 (0-0.2) K/uL Immature Gran # (Auto) 0.03 (0.01-0.20) K/uL RBC Morphology Sodium 137 (136-145) mmol/L Potassium 4.3 (3.5-5.1) mmol/L Chloride 104 (98-107) mmol/L Carbon Dioxide 26 (21-32) mmol/L Anion Gap 7 (3-11) BUN 27 H (6-23) mg/dl Creatinine 1.20 (0.6-1.2) mg/dl Est Cr Clr Drug Dosing 35.1 ml/min Est GFR ( Amer) 51.6 ml/min Est GFR (Non-Af Amer) 44.5 ml/min BUN/Creatinine Ratio 22.5 H (10-20) Glucose 124 H (70-99(Fasting)) mg/dl Calcium 10.0 (8.6-10.3) mg/dl Phosphorus (2.5-4.9) mg/dl Magnesium (1.7-2.4) mg/dl Total Bilirubin 0.6 (0.2-1.0) mg/dl AST 19 (13-39) U/L ALT 3 L (7-52) U/L Alkaline Phosphatase 82 (34-104) U/L Troponin I High Sens (0-14) pg/ml Total Protein 8.0 (6.0-8.3) gm/dl Albumin 4.7 (3.4-5.0) gm/dl Globulin 3.3 (2.5-4.0) gm/dl Albumin/Globulin Ratio 1.4 (0.9-2) Lipase 17 (11-82) U/L Urine Color Dark Yellow Urine Appearance Cloudy A (Clear) Urine pH 5.5 (4.5-7.5) Ur Specific [place] 1.036 H (1.000-1.030) Urine Protein 1+ H (Negative) Urine Glucose (UA) Negative (Negative) Urine Ketones 1+ H (Negative) Urine Blood Negative (Negative) Urine Nitrite Negative (Negative) Urine Bilirubin 1+ H (Negative) Urine Urobilinogen Negative (Negative) Ur Leukocyte Esterase Trace H (Negative) Urine WBC (Auto) 5-10 H (0-5) /hpf Urine RBC (Auto) 0-4 (0-4) /hpf U Hyaline Cast (Auto) 1-5 (0-5) /lpf U Epithel Cells (Auto) >30 H (0-5) /lpf Urine Bacteria (Auto) Negative (Negative) Ur Renal Epithelial Cell Not Reportable Urine Yeast Not Reportable 01/06/23 01/06/23 01/08/23 Range/Units 07:25 07:25 11:15 WBC 11.37 H (4.8-10.8) K/ul RBC 4.19 L (4.20-5.40) M/uL Hgb 13.1 (12.0-16.0) g/dl Hct 39.6 (37.0-47.0) % MCV 94.5 (80.0-100.0) fL MCH 31.3 (25.0-34.0) pg MCHC 33.1 (32.0-36.0) g/dL RDW Std Deviation 44.7 (36.4-46.3) fL RDW Coeff of Brandee 13.1 (11.5-14.5) % Plt Count 155 (130-400) K/uL MPV 9.6 (9.4-12.4) fL Immature Gran % (Auto) 0.4 % Neut % (Auto) 87.8 % Lymph % (Auto) 5.3 % [place] % (Auto) 6.0 % Eos % (Auto) 0.2 % Baso % (Auto) 0.3 % Neut # (Auto) 10.00 H (1.40-6.50) K/uL Lymph # (Auto) 0.60 L (1.2-3.4) K/uL [place] # (Auto) 0.68 H (0.11-0.59) K/uL Eos # (Auto) 0.02 (0-0.50) K/uL Baso # (Auto) 0.03 (0-0.2) K/uL Immature Gran # (Auto) 0.04 (0.01-0.20) K/uL RBC Morphology Sodium 136 144 (136-145) mmol/L Potassium 4.1 3.3 L (3.5-5.1) mmol/L Chloride 107 104 (98-107) mmol/L Carbon Dioxide 24 31 (21-32) mmol/L Anion Gap 5 9 (3-11) BUN 20 28 H (6-23) mg/dl Creatinine 0.97 1.26 H (0.6-1.2) mg/dl Est Cr Clr Drug Dosing 43.6 33.6 ml/min Est GFR ( Amer) 66.7 48.6 ml/min Est GFR (Non-Af Amer) 57.5 41.9 ml/min BUN/Creatinine Ratio 20.6 H 22.2 H (10-20) Glucose 192 H 130 H (70-99(Fasting)) mg/dl Calcium 8.9 9.5 (8.6-10.3) mg/dl Phosphorus (2.5-4.9) mg/dl Magnesium 1.9 1.9 (1.7-2.4) mg/dl Total Bilirubin (0.2-1.0) mg/dl AST (13-39) U/L ALT (7-52) U/L Alkaline Phosphatase (34-104) U/L Troponin I High Sens (0-14) pg/ml Total Protein (6.0-8.3) gm/dl Albumin (3.4-5.0) gm/dl Globulin (2.5-4.0) gm/dl Albumin/Globulin Ratio (0.9-2) Lipase (11-82) U/L Urine Color Urine Appearance (Clear) Urine pH (4.5-7.5) Ur Specific [place] (1.000-1.030) Urine Protein (Negative) Urine Glucose (UA) (Negative) Urine Ketones (Negative) Urine Blood (Negative) Urine Nitrite (Negative) Urine Bilirubin (Negative) Urine Urobilinogen (Negative) Ur Leukocyte Esterase (Negative) Urine WBC (Auto) (0-5) /hpf Urine RBC (Auto) (0-4) /hpf U Hyaline Cast (Auto) (0-5) /lpf U Epithel Cells (Auto) (0-5) /lpf Urine Bacteria (Auto) (Negative) Ur Renal Epithelial Cell Urine Yeast 01/09/23 01/10/23 01/11/23 Range/Units 06:25 07:05 06:21 WBC (4.8-10.8) K/ul RBC (4.20-5.40) M/uL Hgb (12.0-16.0) g/dl Hct (37.0-47.0) % MCV (80.0-100.0) fL MCH (25.0-34.0) pg MCHC (32.0-36.0) g/dL RDW Std Deviation (36.4-46.3) fL RDW Coeff of Brandee (11.5-14.5) % Plt Count (130-400) K/uL MPV (9.4-12.4) fL Immature Gran % (Auto) % Neut % (Auto) % Lymph % (Auto) % [place] % (Auto) % Eos % (Auto) % Baso % (Auto) % Neut # (Auto) (1.40-6.50) K/uL Lymph # (Auto) (1.2-3.4) K/uL [place] # (Auto) (0.11-0.59) K/uL Eos # (Auto) (0-0.50) K/uL Baso # (Auto) (0-0.2) K/uL Immature Gran # (Auto) (0.01-0.20) K/uL RBC Morphology Sodium 139 141 143 (136-145) mmol/L Potassium 3.7 3.7 3.4 L (3.5-5.1) mmol/L Chloride 105 108 H 111 H (98-107) mmol/L Carbon Dioxide 27 25 24 (21-32) mmol/L Anion Gap 7 8 8 (3-11) BUN 34 H 36 H 30 H (6-23) mg/dl Creatinine 1.02 0.93 0.90 (0.6-1.2) mg/dl Est Cr Clr Drug Dosing 41.5 45.5 47.0 ml/min Est GFR ( Amer) 62.8 70.2 73.0 ml/min Est GFR (Non-Af Amer) 54.1 60.5 63.0 ml/min BUN/Creatinine Ratio 33.3 H 38.7 H 33.3 H (10-20) Glucose 131 H 135 H 127 H (70-99(Fasting)) mg/dl Calcium 8.8 8.8 8.4 L (8.6-10.3) mg/dl Phosphorus (2.5-4.9) mg/dl Magnesium 1.9 2.1 2.1 (1.7-2.4) mg/dl Total Bilirubin (0.2-1.0) mg/dl AST (13-39) U/L ALT (7-52) U/L Alkaline Phosphatase (34-104) U/L Troponin I High Sens (0-14) pg/ml Total Protein (6.0-8.3) gm/dl Albumin (3.4-5.0) gm/dl Globulin (2.5-4.0) gm/dl Albumin/Globulin Ratio (0.9-2) Lipase (11-82) U/L Urine Color Urine Appearance (Clear) Urine pH (4.5-7.5) Ur Specific [place] (1.000-1.030) Urine Protein (Negative) Urine Glucose (UA) (Negative) Urine Ketones (Negative) Urine Blood (Negative) Urine Nitrite (Negative) Urine Bilirubin (Negative) Urine Urobilinogen (Negative) Ur Leukocyte Esterase (Negative) Urine WBC (Auto) (0-5) /hpf Urine RBC (Auto) (0-4) /hpf U Hyaline Cast (Auto) (0-5) /lpf U Epithel Cells (Auto) (0-5) /lpf Urine Bacteria (Auto) (Negative) Ur Renal Epithelial Cell Urine Yeast 01/12/23 01/13/23 01/13/23 Range/Units 08:33 07:18 07:18 WBC 5.77 (4.8-10.8) K/ul RBC 4.00 L (4.20-5.40) M/uL Hgb 12.2 (12.0-16.0) g/dl Hct 37.2 (37.0-47.0) % MCV 93.0 (80.0-100.0) fL MCH 30.5 (25.0-34.0) pg MCHC 32.8 (32.0-36.0) g/dL RDW Std Deviation 45.9 (36.4-46.3) fL RDW Coeff of Brandee 13.4 (11.5-14.5) % Plt Count 203 (130-400) K/uL MPV 9.4 (9.4-12.4) fL Immature Gran % (Auto) % Neut % (Auto) % Lymph % (Auto) % [place] % (Auto) % Eos % (Auto) % Baso % (Auto) % Neut # (Auto) (1.40-6.50) K/uL Lymph # (Auto) (1.2-3.4) K/uL [place] # (Auto) (0.11-0.59) K/uL Eos # (Auto) (0-0.50) K/uL Baso # (Auto) (0-0.2) K/uL Immature Gran # (Auto) (0.01-0.20) K/uL RBC Morphology Sodium 143 141 (136-145) mmol/L Potassium 3.4 L 3.6 (3.5-5.1) mmol/L Chloride 112 H 112 H (98-107) mmol/L Carbon Dioxide 25 23 (21-32) mmol/L Anion Gap 6 6 (3-11) BUN 20 16 (6-23) mg/dl Creatinine 0.93 0.88 (0.6-1.2) mg/dl Est Cr Clr Drug Dosing 45.5 48.1 ml/min Est GFR ( Amer) 70.2 75.0 ml/min Est GFR (Non-Af Amer) 60.5 64.7 ml/min BUN/Creatinine Ratio 21.5 H 18.2 (10-20) Glucose 118 H 118 H (70-99(Fasting)) mg/dl Calcium 8.5 L 8.4 L (8.6-10.3) mg/dl Phosphorus (2.5-4.9) mg/dl Magnesium 2.1 1.9 (1.7-2.4) mg/dl Total Bilirubin (0.2-1.0) mg/dl AST (13-39) U/L ALT (7-52) U/L Alkaline Phosphatase (34-104) U/L Troponin I High Sens (0-14) pg/ml Total Protein (6.0-8.3) gm/dl Albumin (3.4-5.0) gm/dl Globulin (2.5-4.0) gm/dl Albumin/Globulin Ratio (0.9-2) Lipase (11-82) U/L Urine Color Urine Appearance (Clear) Urine pH (4.5-7.5) Ur Specific [place] (1.000-1.030) Urine Protein (Negative) Urine Glucose (UA) (Negative) Urine Ketones (Negative) Urine Blood (Negative) Urine Nitrite (Negative) Urine Bilirubin (Negative) Urine Urobilinogen (Negative) Ur Leukocyte Esterase (Negative) Urine WBC (Auto) (0-5) /hpf Urine RBC (Auto) (0-4) /hpf U Hyaline Cast (Auto) (0-5) /lpf U Epithel Cells (Auto) (0-5) /lpf Urine Bacteria (Auto) (Negative) Ur Renal Epithelial Cell Urine Yeast 01/14/23 01/14/23 01/15/23 Range/Units 06:34 06:34 06:48 WBC 11.24 H 16.57 H (4.8-10.8) K/ul RBC 3.45 L 3.80 L (4.20-5.40) M/uL Hgb 10.6 L 11.8 L (12.0-16.0) g/dl Hct 33.0 L 35.4 L (37.0-47.0) % MCV 95.7 93.2 (80.0-100.0) fL MCH 30.7 31.1 (25.0-34.0) pg MCHC 32.1 33.3 (32.0-36.0) g/dL RDW Std Deviation 47.6 H 45.1 (36.4-46.3) fL RDW Coeff of Brandee 13.6 13.2 (11.5-14.5) % Plt Count 198 237 (130-400) K/uL MPV 9.1 L 8.9 L (9.4-12.4) fL Immature Gran % (Auto) 0.8 % Neut % (Auto) 86.0 % Lymph % (Auto) 8.0 % [place] % (Auto) 4.0 % Eos % (Auto) 0.8 % Baso % (Auto) 0.4 % Neut # (Auto) 9.66 H (1.40-6.50) K/uL Lymph # (Auto) 0.90 L (1.2-3.4) K/uL [place] # (Auto) 0.45 (0.11-0.59) K/uL Eos # (Auto) 0.09 (0-0.50) K/uL Baso # (Auto) 0.05 (0-0.2) K/uL Immature Gran # (Auto) 0.09 (0.01-0.20) K/uL RBC Morphology Unremarkable Sodium 142 (136-145) mmol/L Potassium 3.6 (3.5-5.1) mmol/L Chloride 116 H (98-107) mmol/L Carbon Dioxide 22 (21-32) mmol/L Anion Gap 4 (3-11) BUN 11 (6-23) mg/dl Creatinine 0.96 (0.6-1.2) mg/dl Est Cr Clr Drug Dosing 44.1 ml/min Est GFR ( Amer) 67.5 ml/min Est GFR (Non-Af Amer) 58.3 ml/min BUN/Creatinine Ratio 11.5 (10-20) Glucose 111 H (70-99(Fasting)) mg/dl Calcium 7.7 L (8.6-10.3) mg/dl Phosphorus 3.0 (2.5-4.9) mg/dl Magnesium 1.7 (1.7-2.4) mg/dl Total Bilirubin 0.5 (0.2-1.0) mg/dl AST 13 (13-39) U/L ALT 7 (7-52) U/L Alkaline Phosphatase 46 (34-104) U/L Troponin I High Sens (0-14) pg/ml Total Protein 4.7 L (6.0-8.3) gm/dl Albumin 2.4 L (3.4-5.0) gm/dl Globulin 2.3 L (2.5-4.0) gm/dl Albumin/Globulin Ratio 1.0 (0.9-2) Lipase (11-82) U/L Urine Color Urine Appearance (Clear) Urine pH (4.5-7.5) Ur Specific [place] (1.000-1.030) Urine Protein (Negative) Urine Glucose (UA) (Negative) Urine Ketones (Negative) Urine Blood (Negative) Urine Nitrite (Negative) Urine Bilirubin (Negative) Urine Urobilinogen (Negative) Ur Leukocyte Esterase (Negative) Urine WBC (Auto) (0-5) /hpf Urine RBC (Auto) (0-4) /hpf U Hyaline Cast (Auto) (0-5) /lpf U Epithel Cells (Auto) (0-5) /lpf Urine Bacteria (Auto) (Negative) Ur Renal Epithelial Cell Urine Yeast 01/15/23 01/15/23 01/16/23 Range/Units 06:48 10:21 06:01 WBC 15.37 H (4.8-10.8) K/ul RBC 3.63 L (4.20-5.40) M/uL Hgb 11.2 L (12.0-16.0) g/dl Hct 34.1 L (37.0-47.0) % MCV 93.9 (80.0-100.0) fL MCH 30.9 (25.0-34.0) pg MCHC 32.8 (32.0-36.0) g/dL RDW Std Deviation 46.1 (36.4-46.3) fL RDW Coeff of Brandee 13.5 (11.5-14.5) % Plt Count 240 (130-400) K/uL MPV 8.8 L (9.4-12.4) fL Immature Gran % (Auto) % Neut % (Auto) % Lymph % (Auto) % [place] % (Auto) % Eos % (Auto) % Baso % (Auto) % Neut # (Auto) (1.40-6.50) K/uL Lymph # (Auto) (1.2-3.4) K/uL [place] # (Auto) (0.11-0.59) K/uL Eos # (Auto) (0-0.50) K/uL Baso # (Auto) (0-0.2) K/uL Immature Gran # (Auto) (0.01-0.20) K/uL RBC Morphology Sodium 139 (136-145) mmol/L Potassium 4.0 (3.5-5.1) mmol/L Chloride 111 H (98-107) mmol/L Carbon Dioxide 22 (21-32) mmol/L Anion Gap 6 (3-11) BUN 9 (6-23) mg/dl Creatinine 0.98 (0.6-1.2) mg/dl Est Cr Clr Drug Dosing 43.2 ml/min Est GFR ( Amer) 65.9 ml/min Est GFR (Non-Af Amer) 56.8 ml/min BUN/Creatinine Ratio 9.2 L (10-20) Glucose 105 H (70-99(Fasting)) mg/dl Calcium 7.6 L (8.6-10.3) mg/dl Phosphorus 4.6 D (2.5-4.9) mg/dl Magnesium 1.7 (1.7-2.4) mg/dl Total Bilirubin (0.2-1.0) mg/dl AST (13-39) U/L ALT (7-52) U/L Alkaline Phosphatase (34-104) U/L Troponin I High Sens 10.2 (0-14) pg/ml Total Protein (6.0-8.3) gm/dl Albumin (3.4-5.0) gm/dl Globulin (2.5-4.0) gm/dl Albumin/Globulin Ratio (0.9-2) Lipase (11-82) U/L Urine Color Urine Appearance (Clear) Urine pH (4.5-7.5) Ur Specific [place] (1.000-1.030) Urine Protein (Negative) Urine Glucose (UA) (Negative) Urine Ketones (Negative) Urine Blood (Negative) Urine Nitrite (Negative) Urine Bilirubin (Negative) Urine Urobilinogen (Negative) Ur Leukocyte Esterase (Negative) Urine WBC (Auto) (0-5) /hpf Urine RBC (Auto) (0-4) /hpf U Hyaline Cast (Auto) (0-5) /lpf U Epithel Cells (Auto) (0-5) /lpf Urine Bacteria (Auto) (Negative) Ur Renal Epithelial Cell Urine Yeast 01/16/23 01/17/23 01/17/23 Range/Units 06:01 05:56 05:56 WBC 12.47 H (4.8-10.8) K/ul RBC 3.67 L (4.20-5.40) M/uL Hgb 11.4 L (12.0-16.0) g/dl Hct 33.7 L (37.0-47.0) % MCV 91.8 (80.0-100.0) fL MCH 31.1 (25.0-34.0) pg MCHC 33.8 (32.0-36.0) g/dL RDW Std Deviation 44.7 (36.4-46.3) fL RDW Coeff of Brandee 13.2 (11.5-14.5) % Plt Count 249 (130-400) K/uL MPV 8.9 L (9.4-12.4) fL Immature Gran % (Auto) % Neut % (Auto) % Lymph % (Auto) % [place] % (Auto) % Eos % (Auto) % Baso % (Auto) % Neut # (Auto) (1.40-6.50) K/uL Lymph # (Auto) (1.2-3.4) K/uL [place] # (Auto) (0.11-0.59) K/uL Eos # (Auto) (0-0.50) K/uL Baso # (Auto) (0-0.2) K/uL Immature Gran # (Auto) (0.01-0.20) K/uL RBC Morphology Sodium 138 137 (136-145) mmol/L Potassium 3.4 L 4.0 (3.5-5.1) mmol/L Chloride 107 105 (98-107) mmol/L Carbon Dioxide 26 28 (21-32) mmol/L Anion Gap 5 4 (3-11) BUN 13 16 (6-23) mg/dl Creatinine 0.81 0.58 L (0.6-1.2) mg/dl Est Cr Clr Drug Dosing 52.2 72.9 ml/min Est GFR ( Amer) 82.9 105.2 ml/min Est GFR (Non-Af Amer) 71.5 90.8 ml/min BUN/Creatinine Ratio 16.0 27.6 H (10-20) Glucose 120 H 119 H (70-99(Fasting)) mg/dl Calcium 7.6 L 7.9 L (8.6-10.3) mg/dl Phosphorus 3.3 D 3.6 (2.5-4.9) mg/dl Magnesium 1.9 1.9 (1.7-2.4) mg/dl Total Bilirubin (0.2-1.0) mg/dl AST (13-39) U/L ALT (7-52) U/L Alkaline Phosphatase (34-104) U/L Troponin I High Sens (0-14) pg/ml Total Protein (6.0-8.3) gm/dl Albumin (3.4-5.0) gm/dl Globulin (2.5-4.0) gm/dl Albumin/Globulin Ratio (0.9-2) Lipase (11-82) U/L Urine Color Urine Appearance (Clear) Urine pH (4.5-7.5) Ur Specific [place] (1.000-1.030) Urine Protein (Negative) Urine Glucose (UA) (Negative) Urine Ketones (Negative) Urine Blood (Negative) Urine Nitrite (Negative) Urine Bilirubin (Negative) Urine Urobilinogen (Negative) Ur Leukocyte Esterase (Negative) Urine WBC (Auto) (0-5) /hpf Urine RBC (Auto) (0-4) /hpf U Hyaline Cast (Auto) (0-5) /lpf U Epithel Cells (Auto) (0-5) /lpf Urine Bacteria (Auto) (Negative) Ur Renal Epithelial Cell Urine Yeast 01/18/23 01/18/23 01/19/23 Range/Units 06:11 06:11 06:53 WBC 9.69 (4.8-10.8) K/ul RBC 3.97 L (4.20-5.40) M/uL Hgb 12.3 (12.0-16.0) g/dl Hct 37.5 (37.0-47.0) % MCV 94.5 (80.0-100.0) fL MCH 31.0 (25.0-34.0) pg MCHC 32.8 (32.0-36.0) g/dL RDW Std Deviation 45.5 (36.4-46.3) fL RDW Coeff of Brandee 13.2 (11.5-14.5) % Plt Count 222 (130-400) K/uL MPV 8.7 L (9.4-12.4) fL Immature Gran % (Auto) % Neut % (Auto) % Lymph % (Auto) % [place] % (Auto) % Eos % (Auto) % Baso % (Auto) % Neut # (Auto) (1.40-6.50) K/uL Lymph # (Auto) (1.2-3.4) K/uL [place] # (Auto) (0.11-0.59) K/uL Eos # (Auto) (0-0.50) K/uL Baso # (Auto) (0-0.2) K/uL Immature Gran # (Auto) (0.01-0.20) K/uL RBC Morphology Sodium 138 138 (136-145) mmol/L Potassium 4.5 4.3 (3.5-5.1) mmol/L Chloride 105 104 (98-107) mmol/L Carbon Dioxide 29 29 (21-32) mmol/L Anion Gap 4 5 (3-11) BUN 17 18 (6-23) mg/dl Creatinine 0.63 0.60 (0.6-1.2) mg/dl Est Cr Clr Drug Dosing 67.2 70.5 ml/min Est GFR ( Amer) 102.4 104.1 ml/min Est GFR (Non-Af Amer) 88.4 89.8 ml/min BUN/Creatinine Ratio 27.0 H 30.0 H (10-20) Glucose 118 H 126 H (70-99(Fasting)) mg/dl Calcium 8.2 L 8.3 L (8.6-10.3) mg/dl Phosphorus 3.6 4.0 (2.5-4.9) mg/dl Magnesium 1.9 1.9 (1.7-2.4) mg/dl Total Bilirubin (0.2-1.0) mg/dl AST (13-39) U/L ALT (7-52) U/L Alkaline Phosphatase (34-104) U/L Troponin I High Sens (0-14) pg/ml Total Protein (6.0-8.3) gm/dl Albumin (3.4-5.0) gm/dl Globulin (2.5-4.0) gm/dl Albumin/Globulin Ratio (0.9-2) Lipase (11-82) U/L Urine Color Urine Appearance (Clear) Urine pH (4.5-7.5) Ur Specific [place] (1.000-1.030) Urine Protein (Negative) Urine Glucose (UA) (Negative) Urine Ketones (Negative) Urine Blood (Negative) Urine Nitrite (Negative) Urine Bilirubin (Negative) Urine Urobilinogen (Negative) Ur Leukocyte Esterase (Negative) Urine WBC (Auto) (0-5) /hpf Urine RBC (Auto) (0-4) /hpf U Hyaline Cast (Auto) (0-5) /lpf U Epithel Cells (Auto) (0-5) /lpf Urine Bacteria (Auto) (Negative) Ur Renal Epithelial Cell Urine Yeast 01/19/23 Range/Units 06:53 WBC 7.75 (4.8-10.8) K/ul RBC 3.75 L (4.20-5.40) M/uL Hgb 11.6 L (12.0-16.0) g/dl Hct 35.2 L (37.0-47.0) % MCV 93.9 (80.0-100.0) fL MCH 30.9 (25.0-34.0) pg MCHC 33.0 (32.0-36.0) g/dL RDW Std Deviation 45.5 (36.4-46.3) fL RDW Coeff of Brandee 13.3 (11.5-14.5) % Plt Count 220 (130-400) K/uL MPV 8.9 L (9.4-12.4) fL Immature Gran % (Auto) % Neut % (Auto) % Lymph % (Auto) % [place] % (Auto) % Eos % (Auto) % Baso % (Auto) % Neut # (Auto) (1.40-6.50) K/uL Lymph # (Auto) (1.2-3.4) K/uL [place] # (Auto) (0.11-0.59) K/uL Eos # (Auto) (0-0.50) K/uL Baso # (Auto) (0-0.2) K/uL Immature Gran # (Auto) (0.01-0.20) K/uL RBC Morphology Sodium (136-145) mmol/L Potassium (3.5-5.1) mmol/L Chloride (98-107) mmol/L Carbon Dioxide (21-32) mmol/L Anion Gap (3-11) BUN (6-23) mg/dl Creatinine (0.6-1.2) mg/dl Est Cr Clr Drug Dosing ml/min Est GFR ( Amer) ml/min Est GFR (Non-Af Amer) ml/min BUN/Creatinine Ratio (10-20) Glucose (70-99(Fasting)) mg/dl Calcium (8.6-10.3) mg/dl Phosphorus (2.5-4.9) mg/dl Magnesium (1.7-2.4) mg/dl Total Bilirubin (0.2-1.0) mg/dl AST (13-39) U/L ALT (7-52) U/L Alkaline Phosphatase (34-104) U/L Troponin I High Sens (0-14) pg/ml Total Protein (6.0-8.3) gm/dl Albumin (3.4-5.0) gm/dl Globulin (2.5-4.0) gm/dl Albumin/Globulin Ratio (0.9-2) Lipase (11-82) U/L Urine Color Urine Appearance (Clear) Urine pH (4.5-7.5) Ur Specific [place] (1.000-1.030) Urine Protein (Negative) Urine Glucose (UA) (Negative) Urine Ketones (Negative) Urine Blood (Negative) Urine Nitrite (Negative) Urine Bilirubin (Negative) Urine Urobilinogen (Negative) Ur Leukocyte Esterase (Negative) Urine WBC (Auto) (0-5) /hpf Urine RBC (Auto) (0-4) /hpf U Hyaline Cast (Auto) (0-5) /lpf U Epithel Cells (Auto) (0-5) /lpf Urine Bacteria (Auto) (Negative) Ur Renal Epithelial Cell Urine Yeast
[2023-01-19] MEDS: HYDROmorphone INJ 0.5 MG/0.5 ML SYR IV PRN (20:40)
--- NOTE | 2023-01-19 20:51 | Hospitalist Progress Note ---
Date of Service January 19, 2023 Assessment & Plan (1) Small bowel obstruction: Plan: Per admitting service notes with Addendum: 72-year-old female past medical significant for hypertension, Parkinson disease history of bowel obstruction in the past presents with abdominal pain and found to have a high-grade small bowel obstruction. SMALL BOWEL OBSTRUCTION HIGH-GRADE Transition point at mid pelvis General surgery consulted s/p ex lap w/ adhesions lysis on 01/14 Diet advanced to full liquids TPN discontinued Continue to monitor closely POSSIBLE ACUTE SINUSITIS Symptoms improved - was treated w/Unasyn Hypokalemia replace and monitor HYPERTENSION Continue home lisinopril Monitor closely PARKINSON'S DISEASE Continue home carbidopa levodopa DVT prophylaxis Lovenox, per surgery FULL CODE (2) HTN (hypertension): (3) Parkinson disease: Admission and Anticipated Discharge Date Admission Date: January 06, 2023 Subjective Follow-up for SBO, etc. Seen resting in bed, comfortable, not in distress Had minimal abdominal discomfort today, now resolved Positive flatus Tolerating clear liquids well No fevers or chills No Shortness of breath, cough, or any other symptoms Review of Systems Review of Systems: all noted and negative except for above Physical Exam Physical Exam: all noted and negative except for above Results & Data Results & Data Vital Signs (Past 12 Hours) Vital Signs Temp Pulse Pulse Resp BP Pulse Ox O2 Del Method 01/19/23 19:48 36.4 C L 87 18 121/73 94 Room Air 01/19/23 16:03 85 01/19/23 15:24 36.7 C 78 18 110/73 97 Room Air 01/19/23 12:45 36.6 C 65 16 126/64 95 Room Air all noted and reviewed including below
[2023-01-20] MEDS: CARBIDOPA/LEVODOPA 25/100MG TAB PO SCH ×3 (08:55→20:27)
[2023-01-20] MEDS: POLYETHYLENE (MIRALAX) 17 GM PACK PO SCH (08:56)
[2023-01-20] MEDS: lisinopril 5 MG TAB PO SCH (08:56)
[2023-01-20] MEDS: MEMANTINE HCL 5 MG TAB PO SCH ×2 (08:56→20:27)
--- NOTE | 2023-01-20 12:04 | Surgery Progress Note ---
Date of Service January 20, 2023 Assessment & Plan (1) Small bowel obstruction: Plan: doing well con't ngt PPN OOB begin lovenox 01/17/2023 1:[address] Quinn F/U S/P Exploratory Laparotomy, Lysis of Adhesions, POD 3 pt is doing fine, WBC 12,000. start cipro pulled NG tube, D/C wilkinson miralax OOB repeat labs tomorrow will F/U 01/18/2023 9:[address] Quinn F/U S/P Exploratory Laparotomy, Lysis of Adhesions, POD 4 pt is doing better, WBC 9.6 keep clear diet today, OT, PT OOB will F/U 01/19/2023 1:[address] Quinn F/U S/P Exploratory Laparotomy, Lysis of Adhesions, POD 5 pt is doing better, passed flatus full liquid diet today, D/C PPN, stop cipro consult casework specialist possible D/C alf on Tuesday. OOB will F/U 01/20/2023 12:[address] Quinn F/U S/P Exploratory Laparotomy, Lysis of Adhesions, POD 6 pt is doing better, passed flatus continue full liquid diet consult casework specialist possible D/C alf on Tuesday. OOB will F/U Admission and Anticipated Discharge Date Admission Date: January 06, 2023 Supervising Physician Co-Signing Physician Notes Pt seen and examined by me, care coordinated w/ Yahaira Scott PA-C, pls refer to her note above for further detail. Today pt tells me she is not passing flatus today or overnight, also no BM. However denies abd. pain. Also no nausea or vomiting. Yesterday not doing well after trying clear liquid diet. Today, surgery service is recommending ex lap, pt declines and wants to continue w/ conservative management. Potassium replaced. IVF. Cont. to closely monitor. Plan as above. MD Mary Subjective Follow-up for SBO, etc. Seen resting in bed, comfortable, not in distress Had minimal abdominal discomfort today, now resolved Positive flatus Tolerating clear liquids well No fevers or chills No Shortness of breath, cough, or any other symptoms 01/20/2023 12:[address] Quinn doing better, no abdominal pain, tolerated full liquid diet, still pass flatus, no nausea, no vomiting. no fever. Review of Systems Constitutional: no fever and no chills Respiratory: no dyspnea Cardiovascular: no chest pain Gastrointestinal: + abdominal pain; no nausea and no vomiting Neurologic: no localized weakness Psychiatric: no behavioral changes Physical Exam Constitutional: WD/WN, vitals as above cooperative, comfortable and + lethargic; no acute distress and not diaphoretic Eyes: PERRL, conjunctivae normal, anicteric sclerae Neck: trachea midline, no thyromegaly Respiratory: normal respiratory effort, lungs clear to auscultation normal respiratory effort; no respiratory distress Cardiovascular: RRR, no murmur, no edema Gastrointestinal (Abdomen): soft, NT, ND, BS +, the incision intact, no redness. Neurologic: patellar DTR's 2+ bilat, sensation intact Psychiatric: A+Ox3, euthymic affect Orientation: alert Results & Data Vital Signs (Past 12 Hours) Vital Signs Temp Pulse Pulse Resp BP Pulse Ox O2 Del Method 01/20/23 08:57 Room Air 01/20/23 07:48 36.3 C L 82 18 118/75 94 Room Air 01/20/23 06:00 70 01/20/23 03:05 36.4 C L 81 18 101/66 93 Room Air
--- NOTE | 2023-01-20 16:36 | Hospitalist Progress Note ---
Date of Service January 20, 2023 Assessment & Plan (1) Small bowel obstruction: Plan: Per admitting service notes with Addendum: 72-year-old female past medical significant for hypertension, Parkinson disease history of bowel obstruction in the past presents with abdominal pain and found to have a high-grade small bowel obstruction. SMALL BOWEL OBSTRUCTION HIGH-GRADE Transition point at mid pelvis General surgery consulted s/p ex lap w/ adhesions lysis on 01/14 Diet advanced to full liquids, tolerating well TPN discontinued Continue to monitor closely POSSIBLE ACUTE SINUSITIS Symptoms improved - was treated w/Unasyn Hypokalemia replace and monitor HYPERTENSION Continue home lisinopril Blood pressure goal PARKINSON'S DISEASE Continue home carbidopa levodopa DVT prophylaxis Lovenox, per surgery FULL CODE (2) HTN (hypertension): (3) Parkinson disease: Admission and Anticipated Discharge Date Admission Date: January 06, 2023 Subjective ff up for SBO, etc sitting up in bed, comfortable in good spirits tolerating full liquids well (+) flatus, no BM yet has intermittent abdominal discomfort, but overall improving no other new symptoms Review of Systems Review of Systems: all noted and negative except for above Physical Exam Physical Exam: General- oriented x 3, not in distress, speaks in sentences with no effort or accessory muscle use Eyes- anicteric Neck- no JVD Lungs- clear breath sounds bilaterally, no rales/wheezes Heart- normal rate, regular rhythm; no murmurs Abdomen- normal bowel sounds, nondistended, soft, no tenderness Extremities- no pretibial edema, no calf tenderness Neuro- alert, oriented x 3; no gross focal neurologic deficits Skin- warm & dry Results & Data Results & Data Vital Signs (Past 12 Hours) Vital Signs Temp Pulse Pulse Resp BP Pulse Ox O2 Del Method 01/20/23 16:14 86 01/20/23 16:01 36.6 C 78 18 105/66 96 Room Air 01/20/23 12:10 36.5 C 77 20 124/78 98 Room Air 01/20/23 08:57 Room Air 01/20/23 07:48 36.3 C L 82 18 118/75 94 Room Air 01/20/23 06:00 70 all noted and reviewed including below
[2023-01-20] MEDS: traMADol HCL 50 MG TABLET PO PRN (21:11)
[2023-01-21] MEDS: CARBIDOPA/LEVODOPA 25/100MG TAB PO SCH ×3 (08:29→22:21)
[2023-01-21] MEDS: POLYETHYLENE (MIRALAX) 17 GM PACK PO SCH (08:30)
[2023-01-21] MEDS: lisinopril 5 MG TAB PO SCH (08:30)
[2023-01-21] MEDS: MEMANTINE HCL 5 MG TAB PO SCH ×2 (08:30→22:21)
--- NOTE | 2023-01-21 09:58 | Surgery Progress Note ---
Date of Service January 21, 2023 Assessment & Plan (1) Small bowel obstruction: Plan: POD # 7 s/p ex lap lysis of adhesions avss postop pain at incision site + flatus, no bowel movement yet tolerating full liquids, no n,v Plan: continue pain management as needed continue full liquids daily miralax consider suppository? continue PT/OT rehab upon discharge at [facility] 01/21/2023 1:[address] Quinn, I saw pt. I agreed with above assessment, Dulcolax 10 mg RI . 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 Admission and Anticipated Discharge Date Admission Date: January 06, 2023 Supervising Physician Co-Signing Physician Notes Pt seen and examined by me, care coordinated w/ Yahaira Scott PA-C, pls refer to her note above for further detail. Today pt tells me she is not passing flatus today or overnight, also no BM. However denies abd. pain. Also no nausea or vomiting. Yesterday not doing well after trying clear liquid diet. Today, surgery service is recommending ex lap, pt declines and wants to continue w/ conservative management. Potassium replaced. IVF. Cont. to closely monitor. Plan as above. MD Mary Subjective feeling okay, did not sleep well last night, pain not controlled with tramadol last night. Had abdominal pain and headache. No n,v with full liquids not feeling bloated has not had bowel movement yet since surgery but passing gas felt like might have had bowel movement this morning but nothing happened Review of Systems Constitutional: no fever and no chills Respiratory: no dyspnea Cardiovascular: no chest pain Gastrointestinal: + abdominal pain; no nausea and no vomiting Neurologic: no localized weakness Psychiatric: no behavioral changes Physical Exam Constitutional: WD/WN, vitals as above cooperative and comfortable; no acute distress and not ill appearing Eyes: PERRL, conjunctivae normal, anicteric sclerae Neck: trachea midline, no thyromegaly Respiratory: normal respiratory effort, lungs clear to auscultation normal respiratory effort; no respiratory distress Cardiovascular: RRR, no murmur, no edema Gastrointestinal (Abdomen): Inspection/Auscultation: abdomen normal to inspection, normal bowel sounds and + abdominal surgical incision (clean/dry/intact with disha, mild erythema); abdomen not distended Percussion/Palpation: + abdomen tender (at midline incision) and abdomen soft; no guarding, abdomen not rigid and abdomen not firm Skin: no rashes, warm and dry Neurologic: patellar DTR's 2+ bilat, sensation intact Psychiatric: A+Ox3, euthymic affect Orientation: alert and oriented x 3 Results & Data Vital Signs (Past 12 Hours) Vital Signs Temp Pulse Pulse Resp BP Pulse Ox O2 Del Method 01/21/23 07:36 36.3 C L 79 20 119/76 96 Room Air 01/21/23 03:00 Room Air 01/21/23 03:13 36.5 C 78 16 128/77 93 Room Air 01/21/23 01:43 81 01/20/23 22:38 36.6 C 81 18 101/85 96 Room Air Laboratory Results 01/21/23 Range/Units 09:18 Sodium Pending Potassium Pending Chloride Pending Carbon Dioxide Pending Anion Gap Pending BUN Pending Creatinine Pending Est Cr Clr Drug Dosing Pending Est GFR ( Amer) Pending Est GFR (Non-Af Amer) Pending BUN/Creatinine Ratio Pending Glucose Pending Calcium Pending
[2023-01-21 10:16] LABS: Calcium 8.3 mg/dl (8.6-10.3)
[2023-01-21 10:21] LABS: BUN Creatinine Ratio 17.6 (10-20); Creatinine Clr Calc Pharmacy 54.7 ml/min; Est GFR (African American) 99.9 ml/min; Est GFR (Non-African American) 86.2 ml/min
[2023-01-21] MEDS ORDERED: bisacodyL 10 MG SUPP PR STA (13:16)
--- NOTE | 2023-01-21 15:56 | Hospitalist Progress Note ---
Date of Service January 21, 2023 Assessment & Plan (1) Small bowel obstruction: Plan: Per admitting service notes with Addendum: 72-year-old female past medical significant for hypertension, Parkinson disease history of bowel obstruction in the past presents with abdominal pain and found to have a high-grade small bowel obstruction. SMALL BOWEL OBSTRUCTION HIGH-GRADE Transition point at mid pelvis General surgery consulted s/p ex lap w/ adhesions lysis on 01/14 Diet advanced to full liquids, tolerating well TPN discontinued Still without BM, Dulcolax ordered Continue to monitor closely POSSIBLE ACUTE SINUSITIS Symptoms improved - was treated w/Unasyn Hypokalemia - replace and monitor HYPERTENSION Continue home lisinopril Blood pressure goal PARKINSON'S DISEASE Continue home carbidopa levodopa DVT prophylaxis Lovenox, per surgery FULL CODE (2) HTN (hypertension): (3) Parkinson disease: Admission and Anticipated Discharge Date Admission Date: January 06, 2023 Subjective Follow-up for small bowel obstruction, etc. Seen resting in bed, comfortable, not in distress States she feels fine overall Tolerating clear liquids well Positive flatus, but still no bowel movements No abdominal pain, nausea No fevers or chills No other symptoms Review of Systems Review of Systems: all noted and negative except for above Physical Exam Physical Exam: General- oriented x 3, not in distress, speaks in sentences with no effort or accessory muscle use Eyes- anicteric Neck- no JVD Lungs- clear breath sounds bilaterally, no rales/wheezes Heart- normal rate, regular rhythm; no murmurs Abdomen- normal bowel sounds, nondistended, soft, dressing in place, no bleeding or discharge, nontender Extremities- no pretibial edema, no calf tenderness Neuro- alert, oriented x 3; no gross focal neurologic deficits Skin- warm & dry Results & Data Results & Data Vital Signs (Past 12 Hours) Vital Signs Temp Pulse Resp BP Pulse Ox O2 Del Method 01/21/23 14:53 36.6 C 70 16 91/57 L 95 Room Air 01/21/23 08:00 Room Air 01/21/23 11:10 36.6 C 82 20 107/71 94 Room Air 01/21/23 07:36 36.3 C L 79 20 119/76 96 Room Air all noted and reviewed including below
[2023-01-21] MEDS: traMADol HCL 50 MG TABLET PO PRN (22:23)
[2023-01-22] MEDS: POLYETHYLENE (MIRALAX) 17 GM PACK PO SCH (08:01)
[2023-01-22] MEDS: MEMANTINE HCL 5 MG TAB PO SCH ×2 (08:01→21:32)
[2023-01-22] MEDS: CARBIDOPA/LEVODOPA 25/100MG TAB PO SCH ×3 (08:02→21:32)
[2023-01-22] MEDS: lisinopril 5 MG TAB PO SCH (08:25)
--- NOTE | 2023-01-22 09:55 | Surgery Progress Note ---
Date of Service January 22, 2023 Assessment & Plan (1) Small bowel obstruction: Plan Doing okay. Awaiting full return of bowel function. We will keep on full liquids until bowel movement. Admission and Anticipated Discharge Date Admission Date: January 06, 2023 Subjective Patient seen. Feeling okay. Tolerating full liquid diet. No nausea or vomiting but no bowel movement yet. Physical Exam Constitutional: Alert. No acute distress Soft with mild expected tenderness. Positive bowel sounds Results & Data Vital Signs (Past 12 Hours) Vital Signs Temp Pulse Pulse Resp BP Pulse Ox O2 Del Method 01/22/23 07:55 36.4 C L 84 16 117/63 93 Room Air 01/22/23 07:22 68 01/22/23 02:50 36.4 C L 77 16 105/68 95 Room Air 01/22/23 01:59 Room Air 01/21/23 22:49 36.3 C L 72 16 114/73 97 Room Air 01/21/23 22:55 76 PG Care Time/CCT Total # of Minutes Spent Total Time Spent with Patient: Total time spent is greater than 50% in coordination of care (as documented) at patient's floor/unit and/or counseling patient: Coding Level of Care Code 86563 Post Operative Follow-Up Diagnoses Small bowel obstruction K56.609
[2023-01-22] MEDS ORDERED: LACTULOSE SYRUP 20 GM/30 ML UDC PO ONE (10:44)
--- NOTE | 2023-01-22 15:21 | Hospitalist Progress Note ---
Date of Service January 22, 2023 Assessment & Plan (1) Small bowel obstruction: Plan: Per admitting service notes with Addendum: 72-year-old female past medical significant for hypertension, Parkinson disease history of bowel obstruction in the past presents with abdominal pain and found to have a high-grade small bowel obstruction. SMALL BOWEL OBSTRUCTION HIGH-GRADE Transition point at mid pelvis General surgery consulted s/p ex lap w/ adhesions lysis on 01/14 Diet advanced to full liquids, tolerating well TPN discontinued Still without BM, lactulose 20 mg p.o. ordered Positive large BM in the afternoon Continue to monitor closely POSSIBLE ACUTE SINUSITIS Symptoms improved - was treated w/Unasyn Hypokalemia - replace and monitor HYPERTENSION Continue home lisinopril Blood pressure goal PARKINSON'S DISEASE Continue home carbidopa levodopa DVT prophylaxis Lovenox, per surgery FULL CODE (2) HTN (hypertension): (3) Parkinson disease: Admission and Anticipated Discharge Date Admission Date: January 06, 2023 Subjective Follow-up small bowel obstruction, etc. Seen resting in bed, sitting, not in distress States she feels fine overall tolerating full liquid diet well No BM yet, but positive flatus No nausea No other new symptom Review of Systems Review of Systems: all noted and negative except for above Physical Exam Physical Exam: General- oriented x 3, not in distress, speaks in sentences with no effort or accessory muscle use Eyes- anicteric Neck- no JVD Lungs- clear breath sounds bilaterally, no rales/wheezes Heart- normal rate, regular rhythm; no murmurs Abdomen- normal bowel sounds, nondistended, soft, nontender Surgical site healing well, disha in place, no bleeding or discharge Extremities- no pretibial edema, no calf tenderness Neuro- alert, oriented x 3; no gross focal neurologic deficits Skin- warm & dry Results & Data Results & Data Vital Signs (Past 12 Hours) Vital Signs Temp Pulse Pulse Resp BP Pulse Ox O2 Del Method 01/22/23 11:46 36.4 C L 74 16 115/73 94 Room Air 01/22/23 08:00 Room Air 01/22/23 07:55 36.4 C L 84 16 117/63 93 Room Air 01/22/23 07:22 68 all noted and reviewed including below
[2023-01-23] MEDS: POLYETHYLENE (MIRALAX) 17 GM PACK PO SCH (07:37)
[2023-01-23] MEDS: CARBIDOPA/LEVODOPA 25/100MG TAB PO SCH ×3 (07:38→20:04)
[2023-01-23] MEDS: MEMANTINE HCL 5 MG TAB PO SCH ×2 (07:38→20:04)
[2023-01-23] MEDS: lisinopril 5 MG TAB PO SCH (07:38)
[2023-01-23] MEDS: DOCUSATE SODIUM/SENNA 50/8.6MG TAB PO SCH (09:48)
--- NOTE | 2023-01-23 11:51 | Hospitalist Progress Note ---
Date of Service January 23, 2023 Assessment & Plan (1) Small bowel obstruction: Plan: Per admitting service notes with Addendum: 72-year-old female past medical significant for hypertension, Parkinson disease history of bowel obstruction in the past presents with abdominal pain and found to have a high-grade small bowel obstruction. SMALL BOWEL OBSTRUCTION HIGH-GRADE Transition point at mid pelvis General surgery consulted s/p ex lap w/ adhesions lysis on 01/14 Positive BM Advance diet to soft Monitor POSSIBLE ACUTE SINUSITIS Symptoms improved - was treated w/Unasyn Hypokalemia - replace and monitor HYPERTENSION Continue home lisinopril Blood pressure goal PARKINSON'S DISEASE Continue home carbidopa levodopa DVT prophylaxis Lovenox, per surgery FULL CODE Disposition transition to acute rehab in 1 to 2 days (2) HTN (hypertension): (3) Parkinson disease: Admission and Anticipated Discharge Date Admission Date: January 06, 2023 Subjective Follow-up for small bowel obstruction, etc. Seen resting in bed, comfortable, sitting up, in good spirits Had a large bowel movement yesterday No abdominal pain, nausea or vomiting Tolerating clear liquids well Review of Systems Review of Systems: all noted and negative except for above Physical Exam Physical Exam: General- oriented x 3, not in distress, speaks in sentences with no effort or accessory muscle use Eyes- anicteric Neck- no JVD Lungs- clear breath sounds bilaterally, no rales/wheezes Heart- normal rate, regular rhythm; no murmurs Abdomen- normal bowel sounds, nondistended, soft, nontender Extremities- no pretibial edema, no calf tenderness Neuro- alert, oriented x 3; no gross focal neurologic deficits Skin- warm & dry Results & Data Results & Data Vital Signs (Past 12 Hours) Vital Signs Temp Pulse Pulse Resp BP Pulse Ox O2 Del Method 01/23/23 11:25 36.4 C L 84 18 111/74 96 Room Air 01/23/23 08:05 68 01/23/23 07:21 36.8 C 75 18 130/79 94 Room Air 01/23/23 03:00 36.6 C 86 18 132/73 94 Room Air all noted and reviewed including below
--- NOTE | 2023-01-23 13:08 | Surgery Progress Note ---
Date of Service January 23, 2023 Assessment & Plan (1) Small bowel obstruction: Plan: Doing well. No surgical issues currently. Discharge planning Admission and Anticipated Discharge Date Admission Date: January 06, 2023 Subjective Patient seen. Feeling much better. She had a bowel movement and tolerated regular diet for lunch without difficulty. Physical Exam Physical Exam: Alert. No acute distress Abdomen soft nontender nondistended. Incision looks good Results & Data Vital Signs (Past 12 Hours) Vital Signs Temp Pulse Pulse Resp BP Pulse Ox O2 Del Method 01/23/23 11:25 36.4 C L 84 18 111/74 96 Room Air 01/23/23 08:05 68 01/23/23 07:21 36.8 C 75 18 130/79 94 Room Air 01/23/23 03:00 36.6 C 86 18 132/73 94 Room Air PG Care Time/CCT Total # of Minutes Spent Total Time Spent with Patient: Total time spent is greater than 50% in coordination of care (as documented) at patient's floor/unit and/or counseling patient: Coding Level of Care Code 05321 Post Operative Follow-Up Diagnoses Small bowel obstruction K56.609
[2023-01-23] MEDS: traMADol HCL 50 MG TABLET PO PRN (20:04)
--- NOTE | 2023-01-24 07:16 | Surgery Progress Note ---
Date of Service January 24, 2023 Assessment & Plan (1) Small bowel obstruction: Plan: POD # 7 s/p ex lap lysis of adhesions avss postop pain at incision site + flatus, no bowel movement yet tolerating full liquids, no n,v Plan: continue pain management as needed continue full liquids daily miralax consider suppository? continue PT/OT rehab upon discharge at [facility] 01/21/2023 1:[address] Quinn, I saw pt. I agreed with above assessment, Dulcolax 10 mg [place] . rehabilitation case coordinator surgeon cover this pt over weekend, thanks. 01/24/2023 7:[address] Quinn pt is doing fine, passed BM, pt can be discharged to [facility] today. She can take a shower tomorrow. no heavy lifting >10 LBS for 4 weeks. F/U me 3 weeks [phone] sign off today, Thanks. please call with questions. Admission and Anticipated Discharge Date Admission Date: January 06, 2023 Supervising Physician Co-Signing Physician Notes Pt seen and examined by me, care coordinated w/ BAlejandro Scott PA-C, pls refer to her note above for further detail. Today pt tells me she is not passing flatus today or overnight, also no BM. However denies abd. pain. Also no nausea or vomiting. Yesterday not doing well after trying clear liquid diet. Today, surgery service is recommending ex lap, pt declines and wants to continue w/ conservative management. Potassium replaced. IVF. Cont. to closely monitor. Plan as above. MD Mary Subjective Patient seen. Feeling much better. She had a bowel movement and tolerated regular diet for lunch without difficulty. 01/24/2023 7:12 AM, Dr. Quinn pt is doing fine, passed BM, tolerated diet, no abdominal pain, no nausea, no vomiting, no fever. Review of Systems Constitutional: no fever and no chills Respiratory: no dyspnea Cardiovascular: no chest pain Gastrointestinal: + abdominal pain; no nausea and no vomiting Neurologic: no localized weakness Psychiatric: no behavioral changes Physical Exam Constitutional: WD/WN, vitals as above cooperative, comfortable and + lethargic; no acute distress and not diaphoretic Eyes: PERRL, conjunctivae normal, anicteric sclerae Neck: trachea midline, no thyromegaly Respiratory: normal respiratory effort, lungs clear to auscultation normal respiratory effort; no respiratory distress Cardiovascular: RRR, no murmur, no edema Gastrointestinal (Abdomen): soft, NT, ND, the incision inact, no redness, BS +. Neurologic: patellar DTR's 2+ bilat, sensation intact Psychiatric: A+Ox3, euthymic affect Orientation: alert and oriented x 3 Results & Data Vital Signs (Past 12 Hours) Vital Signs Temp Pulse Pulse Resp BP Pulse Ox O2 Del Method 01/24/23 07:01 73 01/24/23 03:23 36.4 C L 82 18 104/62 96 Room Air 01/23/23 22:05 77 01/23/23 23:20 36.6 C 79 18 112/75 97 Room Air 01/23/23 23:10 Room Air 01/23/23 19:37 36.8 C 84 18 107/66 96 Room Air
[2023-01-24] MEDS: CARBIDOPA/LEVODOPA 25/100MG TAB PO SCH (09:10)
[2023-01-24] MEDS: MEMANTINE HCL 5 MG TAB PO SCH (09:10)
[2023-01-24] MEDS: lisinopril 5 MG TAB PO SCH (09:11)
[2023-01-24] MEDS: DOCUSATE SODIUM/SENNA 50/8.6MG TAB PO SCH (09:11)
--- NOTE | 2023-01-24 12:25 | Discharge Summary ---
Discharge Summary Date of Service January 24, 2023 Notes For Next Care Provider Please ensure daily bowel movements. Medication Changes From Visit New medication: Senokot-S daily Admission HPI Per Admitting Provider 72-year-old female past medical significant for hypertension, Parkinson disease history of bowel obstruction in the past presents with abdominal pain starting in the morning. Also with some nausea but no vomiting. Had a bowel movement 1 day earlier. She is passing some gas. Currently with the pain medication pain is improved. Denies any chest pain or shortness of breath. No cough. No fevers. No headache. No earache or runny nose or sore throat. Currently resting comfortably and hemodynamically stable. Past medical history as mentioned above Past surgical history esophageal hernia surgery, tubal ligation Social history . Passive smoking. No alcohol use. Family history mother had breast cancer, father had kidney cancer and bone cancer and [place] Admission Exam Per Admitting Provider General- Not in distress Head- atraumatic Eyes- PERRLA. ENT- oropharynx clear Neck- supple, no JVD, Lungs- clear to auscultation and percussion Heart- regular rate rhythm; no murmur, no gallop Abdomen- sluggish bowel sounds, soft, mild diffuse tender, no distension Extremities- no pretibial edema, no erythema Neuro- alert, oriented x 3; PERRL, EOMI; no facial palsy; no dysarthria;moves extremities. Skin- warm & dry Principal Dx & Hospital Course #1 = Principal Diagnosis (1) Small bowel obstruction: Per admitting service notes with Addendum: 72-year-old female past medical significant for hypertension, Parkinson disease history of bowel obstruction in the past presents with abdominal pain and found to have a high-grade small bowel obstruction. SMALL BOWEL OBSTRUCTION HIGH-GRADE Transition point at mid pelvis General surgery consulted s/p ex lap w/ adhesions lysis on 01/14 Diet slowly advanced Placed on laxatives Patient had a bowel movement eventually after a few days postsurgery Now on soft diet Continue Senokot-S daily Ensure daily bowel movements Follow-up with general surgery in 2 weeks for staple removal POSSIBLE ACUTE SINUSITIS Symptoms improved - was treated w/Unasyn Hypokalemia Replaced HYPERTENSION Continue lisinopril PARKINSON'S DISEASE Continue home carbidopa levodopa FULL CODE Transition to acute rehab today Follow-up with general surgery in 2 weeks (2) HTN (hypertension): (3) Parkinson disease: Discharge Exam General- oriented x 3, not in distress, speaks in sentences with no effort or accessory muscle use Eyes- anicteric Neck- no JVD Lungs- clear breath sounds bilaterally, no rales/wheezes Heart- normal rate, regular rhythm; no murmurs Abdomen- normal bowel sounds, nondistended, surgical wound well opposed, disha in place, no bleeding or discharge, soft, nontender Extremities- no pretibial edema, no calf tenderness Neuro- alert, oriented x 3; no gross focal neurologic deficits Skin- warm & dry Updated Medication List Medication Instructions Recorded Confirmed Type carbidopa 25 mg-levodopa 100 mg 1.5 tab PO TID 01/05/23 01/05/23 History tablet lisinopril 5 mg tablet 5 mg PO DAILY 01/05/23 01/05/23 History memantine 5 mg tablet 5 mg PO BID 01/05/23 01/05/23 History multivitamin 1 tab PO DAILY 01/05/23 01/05/23 History sennosides 8.6 mg-docusate sodium 1 tab PO QAM 30 days #30 tabs 01/24/23 Rx 50 mg tablet (Senokot-S) Hospital Stay Data Consultations 01/05/23 21:54 Consult General Surgery Routine 01/05/23 21:58 ED Decision to Admit Stat Procedures Performed Operation Date: 01/14/23 14:05 Actual Procedures p Exploratory Laparotomy, Lysis of Adhesions(Not Applicable) - Amina Quinn MD Diagnostic Imagining Performed Laboratory Results WBC 7.75 K/ul (4.8-10.8) 01/19/23 06:53 RBC 3.75 M/uL (4.20-5.40) L 01/19/23 06:53 Hgb 11.6 g/dl (12.0-16.0) L 01/19/23 06:53 Hct 35.2 % (37.0-47.0) L 01/19/23 06:53 MCV 93.9 fL (80.0-100.0) 01/19/23 06:53 MCH 30.9 pg (25.0-34.0) 01/19/23 06:53 MCHC 33.0 g/dL (32.0-36.0) 01/19/23 06:53 RDW Std Deviation 45.5 fL (36.4-46.3) 01/19/23 06:53 RDW Coeff of Brandee 13.3 % (11.5-14.5) 01/19/23 06:53 Plt Count 220 K/uL (130-400) 01/19/23 06:53 MPV 8.9 fL (9.4-12.4) L 01/19/23 06:53 Immature Gran % (Auto) 0.8 % 01/14/23 06:34 Neut % (Auto) 86.0 % 01/14/23 06:34 Lymph % (Auto) 8.0 % 01/14/23 06:34 [place] % (Auto) 4.0 % 01/14/23 06:34 Eos % (Auto) 0.8 % 01/14/23 06:34 Baso % (Auto) 0.4 % 01/14/23 06:34 Neut # (Auto) 9.66 K/uL (1.40-6.50) H 01/14/23 06:34 Lymph # (Auto) 0.90 K/uL (1.2-3.4) L 01/14/23 06:34 [place] # (Auto) 0.45 K/uL (0.11-0.59) 01/14/23 06:34 Eos # (Auto) 0.09 K/uL (0-0.50) 01/14/23 06:34 Baso # (Auto) 0.05 K/uL (0-0.2) 01/14/23 06:34 Immature Gran # (Auto) 0.09 K/uL (0.01-0.20) 01/14/23 06:34 RBC Morphology Unremarkable 01/14/23 06:34 Sodium 137 mmol/L (136-145) 01/21/23 09:18 Potassium 4.0 mmol/L (3.5-5.1) 01/21/23 09:18 Chloride 107 mmol/L (98-107) 01/21/23 09:18 Carbon Dioxide 24 mmol/L (21-32) 01/21/23 09:18 Anion Gap 6 (3-11) 01/21/23 09:18 BUN 12 mg/dl (6-23) 01/21/23 09:18 Creatinine 0.68 mg/dl (0.6-1.2) 01/21/23 09:18 Est Cr Clr Drug Dosing 54.7 ml/min 01/21/23 09:18 Est GFR ( Amer) 99.9 ml/min 01/21/23 09:18 Est GFR (Non-Af Amer) 86.2 ml/min 01/21/23 09:18 BUN/Creatinine Ratio 17.6 (10-20) 01/21/23 09:18 Glucose 152 mg/dl (70-99(Fasting)) H 01/21/23 09:18 Calcium 8.3 mg/dl (8.6-10.3) L 01/21/23 09:18 Phosphorus 4.0 mg/dl (2.5-4.9) 01/19/23 06:53 Magnesium 1.9 mg/dl (1.7-2.4) 01/19/23 06:53 Total Bilirubin 0.5 mg/dl (0.2-1.0) 01/14/23 06:34 AST 13 U/L (13-39) 01/14/23 06:34 ALT 7 U/L (7-52) 01/14/23 06:34 Alkaline Phosphatase 46 U/L (34-104) 01/14/23 06:34 Troponin I High Sens 10.2 pg/ml (0-14) 01/15/23 10:21 Total Protein 4.7 gm/dl (6.0-8.3) L 01/14/23 06:34 Albumin 2.4 gm/dl (3.4-5.0) L 01/14/23 06:34 Globulin 2.3 gm/dl (2.5-4.0) L 01/14/23 06:34 Albumin/Globulin Ratio 1.0 (0.9-2) 01/14/23 06:34 Lipase 17 U/L (11-82) 01/05/23 18:48 Urine Color Dark Yellow 01/05/23 18:57 Urine Appearance Cloudy (Clear) A 01/05/23 18:57 Urine pH 5.5 (4.5-7.5) 01/05/23 18:57 Ur Specific [place] 1.036 (1.000-1.030) H 01/05/23 18:57 Urine Protein 1+ (Negative) H 01/05/23 18:57 Urine Glucose (UA) Negative (Negative) 01/05/23 18:57 Urine Ketones 1+ (Negative) H 01/05/23 18:57 Urine Blood Negative (Negative) 01/05/23 18:57 Urine Nitrite Negative (Negative) 01/05/23 18:57 Urine Bilirubin 1+ (Negative) H 01/05/23 18:57 Urine Urobilinogen Negative (Negative) 01/05/23 18:57 Ur Leukocyte Esterase Trace (Negative) H 01/05/23 18:57 Urine WBC (Auto) 5-10 /hpf (0-5) H 01/05/23 18:57 Urine RBC (Auto) 0-4 /hpf (0-4) 01/05/23 18:57 U Hyaline Cast (Auto) 1-5 /lpf (0-5) 01/05/23 18:57 U Epithel Cells (Auto) >30 /lpf (0-5) H 01/05/23 18:57 Urine Bacteria (Auto) Negative (Negative) 01/05/23 18:57 Ur Renal Epithelial Cell Not Reportable 01/05/23 18:57 Urine Yeast Not Reportable 01/05/23 18:57 Impressions Abdomen/Pelvis CT 01/05/23 18:03 Exam(s): CT ABDOMEN + PELVIS With Contrast IV Amt: 93 ml optiray 320 EXAM: CT Abdomen and Pelvis With Intravenous Contrast CLINICAL HISTORY: Reason for exam: Generalized abdominal pain. TECHNIQUE: Axial computed tomography images of the abdomen and pelvis with intravenous contrast. CTDI is 10.78 mGy and DLP is 501.16 mGy-cm. Automated exposure control was utilized for the study. A dose lowering technique was utilized adhering to the principles of ALARA. CONTRAST: Patient received 93 ml optiray 320 of IV contrast COMPARISON: No relevant prior studies available. FINDINGS: Lung bases: Unremarkable. No mass. No consolidation. ABDOMEN: Liver: Unremarkable. No mass. Gallbladder and bile ducts: Unremarkable. No calcified stones. No ductal dilation. Pancreas: Unremarkable. No mass. No ductal dilation. Spleen: Unremarkable. No splenomegaly. Adrenals: Unremarkable. No mass. Kidneys and ureters: Unremarkable. No solid mass. No hydronephrosis. Stomach and bowel: high-grade small bowel obstruction. Transition point is likely within the mid line of the pelvis. Diverticulosis without evidence of diverticulitis. PELVIS: Appendix: No findings to suggest acute appendicitis. Bladder: Unremarkable. No mass. Reproductive: Unremarkable as visualized. ABDOMEN and PELVIS: Intraperitoneal space: See above. Bones/joints: No acute fracture. No dislocation. Soft tissues: Unremarkable. Vasculature: Unremarkable. No abdominal aortic aneurysm. Lymph nodes: Unremarkable. No enlarged lymph nodes. IMPRESSION: High-grade small bowel obstruction Electronically signed by: Herman Esquivel MD 01/05/23 20:49 PM KUB X-Ray 01/14/23 08:00 KUB CLINICAL HISTORY: Small bowel obstruction. COMPARISON STUDY: CT of the abdomen and pelvis January 05, 2023 and KUB January 13, 2023. FINDINGS: Small to moderate right and small left pleural effusions are present. There are bibasilar opacities. Tip of nasogastric tube is within the distal body of the stomach. Multiple loops of mildly dilated small bowel are noted. Small bowel dilatation has mildly improved since prior KUB. IMPRESSION: 1. Slight improvement in small bowel dilatation. The findings favor a persistent, but slightly improved, small bowel obstruction. 2. Small to moderate right and small left pleural effusions. ACT 112: Negative or not required by law. Electronically signed by: Maksim Starks M.D. 01/14/2023 8:49 AM Chest X-Ray 01/19/23 08:21 XR chest 1V portable CLINICAL HISTORY: pulmonary congestion, pleural effusion TECHNIQUE: Single frontal radiograph of the chest was obtained. Comparison: Comparison is made to chest radiograph 01/15/2023 FINDINGS: No lines and tubes are seen. The cardiomediastinal silhouette is normal. The lungs are clear. Small left pleural effusion is seen. IMPRESSION: Small left pleural effusion. ACT 112: Negative or not required by law. Electronically signed by: Milo Lyles M.D. 01/19/2023 9:14 AM Discharge Instructions Given to Patient (Per Discharging Provider) Please refer to accompanying hospital discharge summary for further details. Total Time Total Time Spent Total Time Spent (In Minutes): >30 minutes
--- NOTE | 2023-01-26 07:34 | Coding Query ---
CODING QUERY To promote full compliance with coding requirements relating to patient care, provider participation is requested in all cases of ranch hand supervisor uncertainty. Please assist us with the question(s) below: Coding Question(s): Pleural effusion is documented on KUBs and chest x rays. Please document if pleural effusion is clinically significant. Physician's Response(s): Not Clinically significant Thank you Gail PETERSEN
== END 2023-01-24 13:16 | DRG 337 ==
LOC: ED 17:56 → 3N 01-06 00:38 → SUATTDRO 01-06 00:38 → 3N 01-06 01:18 → 2N 01-15 11:41